=== PATIENT | female | born 1935 | race Caucasian/White ===

== ENCOUNTER → 2019-09-26 14:42 | Outpatient (BNVA) | payer MEDICARE, SELFPAY | PROVIDERS: Family Provider Nurse Practitioner Family; PCP Nurse Practitioner Family; Visit Provider Registered Nurse | DX: R10.2 Pelvic and perineal pain (principal); R39.9 Unspecified symptoms and signs involving the genitourinary system | CPT/HCPCS: 81003 ==

== ENCOUNTER → 2019-10-11 14:07 | Outpatient (BNVA) | payer MEDICARE, SELFPAY | PROVIDERS: Family Provider Nurse Practitioner Family; PCP Nurse Practitioner Family; Visit Provider Nurse Practitioner Family | DX: R60.9 Edema, unspecified (principal); E78.5 Hyperlipidemia, unspecified; I11.0 Hypertensive heart disease with heart failure | CPT/HCPCS: 80048; 83880 ==

== ENCOUNTER 2019-11-29 10:41 | Inpatient (IN) | payer MEDICARE, SELFPAY ==
[2019-11-29] VITALS (9 sets, daily range): BP systolic 130–193; BP diastolic 46–90; PULSE 66–82; RESP 16–20; TEMP 36.5–37.1; O2SAT 88–96; BMI 30.1
--- NOTE | 2019-11-29 10:45 | W.ED.BACK ---
HPI - Back Pain/Injury General: Chief Complaint: Back Pain/Injury Stated Complaint: back pain Source: patient Mode of arrival: EMS Limitations: no limitations History of Present Illness: HPI Narrative: Patient is an 83-year-old female who presents to the ED with multiple medical complaints. Patient tells me she lives alone and over the past week has had an extremely difficult time taking care of herself. She states she has suffered from back pain since August and the pain continues to increase making ambulation difficult. She did have evaluation for this through her PCP office including lumbar x-rays that showed severe degenerative changes and disc narrowing. Patient states she is also having trouble ambulating due to bilateral lower extremity swelling. Again she has had this for a few months but feels it is worsening. She does have a history of CHF and at one point was on Lasix however was taken off of this due to unwanted side effects. She was supposed to have a cardiology appointment with Dr. Bruno on November 20 however she canceled this due to the virus . On file patient does have a previous echo performed on 07/2019 which showed a left EF of 60% with diastolic dysfunction. Patient reports a history of COPD. She reports over the last week she has had worsening shortness of breath. She normally does not require oxygen however upon arrival was 88-89% and thus was placed on 2L O2. Associated symptoms: Deny abdominal pain, chills, dysuria, fever(s), nausea, syncope, urinary urgency or vomiting Review of Systems General: Reports: 10 or more systems reviewed and unremarkable except in HPI and below Const: Denies: fever, chills, body aches, change in appetite or change in weight Eyes: Denies: change in vision, blurry vision or photophobia ENMT: Denies: throat pain, enlarged tonsils or painful swallowing Card: Reports: edema (bilateral LE), swelling of feet/ankles and shortness of breath on exertion; Denies: chest pain, palpitations, irregular heart rhythm, lightheadedness, syncope, pre-syncope, shortness of breath when lying down, leg pain with exertion or bluish discoloration of hands/feet Resp: Reports: shortness of breath; Denies: productive cough, non-productive cough, pain on inspiration, change in phlegm color, coughing up blood or chest congestion GI: Denies: abdominal pain, nausea, vomiting or diarrhea : Denies: flank pain, difficulty urinating, painful urination, urinary frequency or urinary urgency Musc: Reports: back pain, extremity pain (bilateral LEs), extremity swelling and joint pain (reports bilateral hip pain); Denies: neck pain Skin/Breast: Denies: rash Neuro: Denies: headache, numbness in extremities, weakness in extremities or changes in sensation PFSH ED PFSH: Social History Smoking and tobacco status: current every day smoker Physical Exam Const: COMMON NORMALS: no apparent distress, average body habitus, oriented x3, no limitations, healthy appearing, alert and well nourished HENMT: COMMON NORMALS: normocephalic and head/scalp atraumatic HEAD & SCALP: normocephalic and atraumatic Resp: COMMON NORMALS: normal respiratory effort and clear to auscultation bilaterally AUSCULTATION: clear to auscultation bilaterally OTHER: pt sats at 88-89% on RA; she was placed on 2L O2 Cardio: COMMON NORMALS: regular rate and regular rhythm RATE: regular rate RHYTHM: regular rhythm GI: COMMON NORMALS: normal to inspection, nondistended, normoactive bowel sounds, soft to palpation, non-tender, no hepatosplenomegaly and no masses PALPATION: Yes soft and Yes no hepatosplenomegaly : COMMON NORMALS: Yes no CVA tenderness BLADDER/KIDNEY EXAM: Yes no CVA tenderness Back/Pelvis: COMMON NORMALS: no CVA tenderness THORACIC SPINE/UPPER BACK: Yes thoracic ROM normal, No thoracic spinal tenderness and No paraspinal muscle spasm LUMBAR SPINE/LOWER BACK: Yes paraspinal muscle tenderness (TTP throughout lower back) and Yes straight leg raise negative bilaterally Extremity: OTHER: bilateral LE pitting edema Neuro: COMMON NORMALS: oriented x3 SENSORIUM/ORIENTATION: Yes alert Skin: COMMON NORMALS: no rashes or lesions noted GENERAL SKIN EXAM: no rashes or lesions noted Course Vital Signs: Vital signs: Vital Signs Temperature 98 F 11/29/19 10:46 Pulse Rate 66 11/29/19 10:46 Respiratory Rate 16 11/29/19 10:46 Blood Pressure 172/58 11/29/19 10:46 Pulse Oximetry 96 11/29/19 10:46 MDM - Back Pain/Injury MDM Narrative: Medical decision making narrative: Patient reports difficulty caring for herself at home. She lives alone. BNP today is elevated compared to the last previous performed last month. She does have pulmonary congestion on her CXR. She is hyponatremic at 125. She is requiring oxygen. Patient most likely will need to be admitted to the hospital for further evaluation. Spoke to Dr. Pryor who agrees and will speak to the hospitalist. Lab Data: Labs: Lab Results 11/29/19 11/29/19 11/29/19 Range/Units 11:14 11:14 11:14 WBC 9.1 (4.0-10.0) 10^3/ uL RBC 4.70 (4.1-5.3) 10^6/u L Hgb 15.3 (11.5-15.3) g/dL Hct 44.7 (37.0-47.0) % MCV 95.1 (81-99) fL MCH 32.6 (28.0-34.0) pg MCHC 34.2 (30.0-36.0) g/dL RDW 12.7 (12.1-15.1) % Plt Count 283 (130-400) 10^3/c mm MPV 9.2 (7.4-10.4) fL Neut % (Auto) 82.9 % Lymph % (Auto) 7.5 % Lancaster % (Auto) 8.6 % Eos % (Auto) 0.1 % Baso % (Auto) 0.2 % Neut # (Auto) 7.5 (1.8-7.7) 10^3/u L Lymph # (Auto) 0.7 L (0.8-4.8) 10^3/u L Lancaster # (Auto) 0.8 (0.2-0.9) 10^3/u L Eos # (Auto) 0.0 (0.0-0.8) 10^3/u L Baso # (Auto) 0.0 (0.0-0.1) 10^3/u L Nucleated RBC % (a uto) 0 % Nucleated RBCs # 0.0 /100WBC Sodium 125 L (136-145) mmol/L Potassium 4.5 (3.5-5.1) mmol/L Chloride 86 L (98-107) mmol/L Carbon Dioxide 28 (22-29) mmol/L Anion Gap 15.5 (5-19) BUN 10 (8-23) mg/dL Creatinine 0.4 L (0.5-0.9) mg/dL Glucose 128 H (65-115) mg/dL Calculated Osmolal ity 258 L (285-295) mOsm/k g Calcium 9.2 (8.5-10.5) mg/dL Total Bilirubin 0.6 (0.15-1.2) mg/dL AST 24 (0-32) U/L ALT 16 (0-33) U/L Alkaline Phosphata se 205 H (35-105) IU/L Troponin T Baselin e 23 H (0-10) ng/mL NT-Pro-B Natriuret Pep 1671 H (0-450) pg/mL Total Protein 6.5 L (6.6-8.7) g/dL Albumin 3.7 (3.5-5.2) g/dL Globulin 2.8 (1.3-4.6) g/dL Urine Color (Yellow) Urine Appearance (CLEAR) Urine pH (5-7) Ur Specific Gravit y (1.005-1.030) Urine Protein (Negative) Urine Glucose (UA) (Normal) Urine Ketones (Negative) Urine Blood (Negative) Urine Nitrate (Negative) Urine Bilirubin (NEGATIVE) Urine Urobilinogen (Negative) mg/dL Ur Leukocyte Maye ase (Negative) 11/29/19 Range/Units 11:36 WBC (4.0-10.0) 10^3/ uL RBC (4.1-5.3) 10^6/u L Hgb (11.5-15.3) g/dL Hct (37.0-47.0) % MCV (81-99) fL MCH (28.0-34.0) pg MCHC (30.0-36.0) g/dL RDW (12.1-15.1) % Plt Count (130-400) 10^3/c mm MPV (7.4-10.4) fL Neut % (Auto) % Lymph % (Auto) % Lancaster % (Auto) % Eos % (Auto) % Baso % (Auto) % Neut # (Auto) (1.8-7.7) 10^3/u L Lymph # (Auto) (0.8-4.8) 10^3/u L Lancaster # (Auto) (0.2-0.9) 10^3/u L Eos # (Auto) (0.0-0.8) 10^3/u L Baso # (Auto) (0.0-0.1) 10^3/u L Nucleated RBC % (a uto) % Nucleated RBCs # /100WBC Sodium (136-145) mmol/L Potassium (3.5-5.1) mmol/L Chloride (98-107) mmol/L Carbon Dioxide (22-29) mmol/L Anion Gap (5-19) BUN (8-23) mg/dL Creatinine (0.5-0.9) mg/dL Glucose (65-115) mg/dL Calculated Osmolal ity (285-295) mOsm/k g Calcium (8.5-10.5) mg/dL Total Bilirubin (0.15-1.2) mg/dL AST (0-32) U/L ALT (0-33) U/L Alkaline Phosphata se (35-105) IU/L Troponin T Baselin e (0-10) ng/mL NT-Pro-B Natriuret Pep (0-450) pg/mL Total Protein (6.6-8.7) g/dL Albumin (3.5-5.2) g/dL Globulin (1.3-4.6) g/dL Urine Color Yellow (Yellow) Urine Appearance Clear (CLEAR) Urine pH 7 (5-7) Ur Specific Gravit y 1.010 (1.005-1.030) Urine Protein Neg (Negative) Urine Glucose (UA) Norm (Normal) Urine Ketones Negative (Negative) Urine Blood Neg (Negative) Urine Nitrate Negative (Negative) Urine Bilirubin Neg (NEGATIVE) Urine Urobilinogen 1 H (Negative) mg/dL Ur Leukocyte Maye ase Negative (Negative) Discharge Plan Discharge Patient Disposition: Admitted As Inpatient Admit Provider: Alia Ratliff Clinical Impression: CHF (congestive heart failure), Acute hyponatremia, Acute exacerbation of chronic obstructive pulmonary disease Condition: Stable Coding Level of Care Code ED Chrome Tanning Drum Operator for Chg Fwd Exam Comprehensive
--- NOTE | 2019-11-29 11:07 | ECG_ITS ---
Measurements Intervals [place] Rate: 64 P: 61 KS: 147 QRS: -38 QRSD: 110 T: 56 QT: 434 QTc: 448 SINUS RHYTHM WITH OCCASIONAL SUPRAVENTRICULAR PREMATURE COMPLEXES POSSIBLE LEFT ATRIAL ENLARGEMENT [-0.1mV P WAVE IN V1/V2] LEFT AXIS DEVIATION [QRS AXIS < -30] INTERPRETATION BASED ON A DEFAULT AGE OF 40 YEARS No previous ECG available for comparison Electronically Signed On 11-29-2019 19:24:41 CDT by Reagan Bruno M.D. [email or web address] f
--- NOTE | 2019-11-29 11:07 | XR_ITS ---
WS: [id number] PORTABLE CHEST HISTORY: cough/congestion COMPARISON: None available. Hyperexpanded lungs with diffuse pulmonary venous congestion. Small LEFT pleural effusion is suspecte d. Cardiac size: Moderately enlarged cardiac silhouette. Mediastinum/Aorta: Moderate calcification thoracic aorta. No osseous abnormality seen. XR/XR chest 1V portable [id number] IMPRESSION: 1. Moderate pulmonary venous congestion and chronic emphysema. 2. Moderate cardiomegaly and partially calcified aorta.
[2019-11-29 11:19] LABS: Basophils % 0.2 %; Eosinophils % 0.1 %; Hematocrit 44.7 % (37.0-47.0); Hemoglobin 15.3 g/dL (11.5-15.3); Lymphocytes # 0.7 10^3/uL (0.8-4.8); Lymphocytes % 7.5 %; Mean Corpuscular HGB Conc 34.2 g/dL (30.0-36.0); Mean Corpuscular Hemoglobin 32.6 pg (28.0-34.0); Mean Corpuscular Volume 95.1 fL (81-99); Mean Platelet Volume 9.2 fL (7.4-10.4); Monocytes # 0.8 10^3/uL (0.2-0.9); Monocytes % 8.6 %; Neutrophils # 7.5 10^3/uL (1.8-7.7); Neutrophils % 82.9 %; Nucleated Red Blood Cells % 0 %; Platelet Count 283 10^3/cmm (130-400); Red Cell Distribution Width 12.7 % (12.1-15.1); White Blood Count 9.1 10^3/uL (4.0-10.0)
--- NOTE | 2019-11-29 11:20 | PC.NURSE ---
x ray to room
[2019-11-29 11:35] LABS: Troponin(5th) Baseline 23 ng/mL (0-10)
[2019-11-29 11:43] LABS: Alanine Aminotransferase 16 U/L (0-33); Albumin Level 3.7 g/dL (3.5-5.2); Alkaline Phosphatase 205 IU/L (35-105); Anion Gap 15.5 (5-19); Aspartate Amino Transferase 24 U/L (0-32); Blood Urea Nitrogen 10 mg/dL (8-23); Calcium 9.2 mg/dL (8.5-10.5); Carbon Dioxide 28 mmol/L (22-29); Chloride 86 mmol/L (98-107); Creatinine Clr Calc Pharmacy 54.2285; Globulin 2.8 g/dL (1.3-4.6); Glucose 128 mg/dL (65-115); NT Pro B Type Natriuretic Pept 1671 pg/mL (0-450); Osmolality Calculated 258 mOsm/kg (285-295); Potassium 4.5 mmol/L (3.5-5.1); Sodium 125 mmol/L (136-145); Total Bilirubin 0.6 mg/dL (0.15-1.2); Total Protein 6.5 g/dL (6.6-8.7)
[2019-11-29 11:57] LABS: Add Urine Microscopic? NO
[2019-11-29 12:01] LABS: Bilirubin Urine Neg (NEGATIVE); Blood Urine Neg (Negative); Glucose Urine UA Norm (Normal); Ketones Urine Negative (Negative); Leukocyte Esterase Urine Negative (Negative); Nitrate Urine Negative (Negative); Protein Urine Neg (Negative); Urine Appearance Clear (CLEAR); Urine Color Yellow (Yellow); Urobilinogen Urine 1 mg/dL (Negative); pH Urine 7 (5-7)
--- NOTE | 2019-11-29 13:07 | ECG_ITS ---
Measurements Intervals [place] Rate: 59 P: 85 TN: 161 QRS: -7 QRSD: 106 T: 52 QT: 449 QTc: 448 SINUS BRADYCARDIA POSSIBLE RIGHT ATRIAL ENLARGEMENT [0.25mV P WAVE] INTERPRETATION BASED ON A DEFAULT AGE OF 40 YEARS No previous ECG available for comparison Electronically Signed On 11-29-2019 19:24:52 CDT by Reagan Bruno M.D. [id number] f
--- NOTE | 2019-11-29 13:11 | PC.NURSE ---
ekg performed and shown to ed physician.
--- NOTE | 2019-11-29 13:25 | CT_ITS ---
WS: [id number] CT LUMBAR SPINE, noncontrast. HISTORY: back pain TECHNIQUE: Contiguous 2.5 mm axial imaging are performed. Sagittal and coronal reformats are submitte d and reviewed. All CT scans at [facility] use at least one of these dose optimization te chniques: automated exposure control; mA and/or kV adjustment per patient size (includes targeted exa ms where dose is matched to clinical indication); or iterative reconstruction. IV contrast: None DLP: 2227.04 mGy.cm COMPARISON: None available. L4 anterolisthesis by 5.5 mm. Severe degenerative disc disease with endplate sclerosis and vacuum dis c phenomenon throughout the lumbar spine. No fractures. Pedicles are all identified. Lobulated low-attenuation mass in the LEFT adrenal gland measures 2.5 x 1.2 cm with decreased Hounsfi eld units. L1-2: Diffuse osteophytic ridging and asymmetric disc bulging. L2-3: Diffuse osteophytic ridging with moderate disc bulging. Mild stenosis involving the central can al and inferior lateral recesses. L3-4: Diffuse asymmetric disc bulging and osteophytosis. Focal disc protrusion extends into the RIGHT foramen with narrowing of the RIGHT subarticular recess. There is moderate central and subarticular recess stenosis and mild bilateral foraminal stenosis. L4-5: Severe diffuse asymmetric disc bulging with facet disease and ligamentum flavum hypertrophy. Se sunny central, bilateral subarticular recess and LEFT foraminal stenosis. Mild RIGHT foraminal stenosi s. L5-S1: Diffuse disc bulging and osteophytosis. Moderate RIGHT and mild LEFT foraminal stenosis. Extensive calcification and tortuosity involving the aorta. Mild aneurysmal dilatation measuring up t o 3.0 cm. Mild bilateral SI joint sclerosis. There is a sclerosis through the pelvis but there is also bilatera l sacral fracture which is probably an insufficiency fracture. CT/CT lumbar spine wo con* [id number] IMPRESSION: 1. Acute sacral insufficiency fracture. 2. Extensive degenerative disc disease and facet joint arthropathy throughout the lumbar spine. 3. Severe central, bilateral subarticular recess and LEFT foraminal stenosis a t L4-5. 4. Moderate central and bilateral subarticular recess stenosis at L3-4. 5. Moderate RIGHT foraminal stenosis at L5-S1. 6. No acute lumbar spine fracture. 7. Tortuous ectatic abdominal aorta. Mild aneurysmal dilatation. 8. LEFT adrenal adenoma.
--- NOTE | 2019-11-29 13:25 | CT_ITS ---
WS: [id number] CT CHEST WITHOUT INTRAVENOUS CONTRAST HISTORY: Pneumonia. TECHNIQUE: Contiguous 5 mm axial imaging performed on the thorax. Coronal and sagittal reformats are submitted. All CT scans at [facility] use at least one of these dose optimization techniq ues: automated exposure control; mA and/or kV adjustment per patient size (includes targeted exams wh ere dose is matched to clinical indication); or iterative reconstruction. CONTRAST: None DLP: 510.29 mGy.cm COMPARISON: Chest radiograph 11/29/2019. Lungs and central airway: Hyperexpanded lungs with emphysema. LEFT upper lobe nodules and irregular o pacifications. There is a subpleural opacification near the superior major fissure measuring 11 x 12 x 14 mm. Smaller pleural-based nodule measures 8 mm and there is an irregular opacification more supe riorly. Slightly spiculated opacification at the LEFT lung base measures 23 x 17 mm. Pleura: Normal. No pleural effusion. Heart and pericardium: Mildly enlarged heart. Mitral annular calcification versus valve replacement. No pericardial fluid. Moderate atherosclerosis coronary arteries. Mediastinum and gokul: On this unenhanced examination adenopathy is not evident. Vessels: Extensive atherosclerosis in the aorta and proximal great vessels. Enlarged pulmonary arteri es. Chest wall and lower neck: Mild anasarca throughout the soft tissues of the chest. Well-rounded solid mass in the inferior lateral RIGHT breast measures 2.0 x 2.2 cm. No suspicious axillary lymph nodes. Upper abdomen: Small hiatal hernia. Heavy calcification continues into the upper abdominal aorta. Linda y mild fullness in the renal pelves. Mild fullness of the LEFT adrenal gland. LEFT adrenal gland is p oorly visualized. Osseous structures: Increase in thoracic kyphosis. No osteoblastic or osteolytic bone disease. Sclero tic changes within some of the endplates of the vertebral bodies appear to be chronic. No sternal abn ormality. CT/CT chest wo con [id number] IMPRESSION: 1. Chronic emphysema. 2. LEFT upper and LEFT lower lobe pulmonary nodules and irregular opacificatio ns. Metastatic disease is not excluded. 3. Inferolateral solid mass RIGHT breast measures 2.0 x 2.2 cm. Consider follo w-up by mammogram and/or ultrasound. 4. No adenopathy on this unenhanced study. 5. Mild anasarca.
--- NOTE | 2019-11-29 13:26 | P.HP_ITS ---
Providers/Chief Complaint Admitting Physician: Alia Ratliff MD Primary Care Provider: Tl Valenzuela Chief Complaint: HYPONATREMIA History of Present Illness Sneha Sanchez is a 83 year old female with past medical history of hypertension, hyperlipidemia, diastolic heart failure, degenerative disc disorder, COPD not on baseline oxygen presents to the ER today with complaint of weakness which is been getting worse for last 1 week and today morning she was not able to get out of bed. Patient states she started having extreme acute pain in her back in August which was not preceded by any kind of fall, injury, motor vehicle accident. For the back pain she is been following up with her primary care physician and x-ray was done which showed extensive degenerative disorder. Since the back pain patient is also been having swelling in her legs which has been increasing gradually. Patient denies of having any pain, tenderness, blisters in her leg. Patient denies of having any chest pain, nausea, vomiting, palpitations, dizziness. Patient has a history of COPD so has some shortness of breath at baseline and it has not increased more than that. She denies of having any difficulty in breathing when lying down or exertion. Patient states usually since August her mobility has been worsening and previously she used to use 1 cane to walk which is gradually come down to her using/needing a walker now. She denies of having any bladder accidents but does state that she has had urinary hesitancy. Patient last had bowel movements 3 days ago. She has suffered on and off with constipation in the past. She denies of having any recent sick contacts, flulike symptoms, travels. She complains of having cough with expectoration which has been at its baseline. Patient has the results of x-ray of her lumbar spine and echocardiogram. Echocardiogram concerning for a EF of 60 to 65% with grade 2 diastolic dysfunction with RVSP of 50 mmHg. Review of Systems Const: Denies: fever, chills, body aches, change in appetite, malaise, night sweats, diaphoresis, change in sleep pattern, daytime sleepiness or snoring Eyes: Denies: change in vision, blurry vision, photophobia, eye discomfort or eye discharge ENMT: Denies: throat pain, enlarged tonsils, hoarseness, mouth pain, oral sores/lesions, dry mouth, tinnitus, nasal congestion or post nasal drip Card: Denies: chest pain, palpitations, irregular heart rhythm, edema, swelling of feet/ankles, lightheadedness, syncope, pre-syncope, shortness of breath on exertion, shortness of breath when lying down, leg pain with exertion or bluish discoloration of hands/feet Resp: Denies: shortness of breath, productive cough, non-productive cough, wheezing, stridor, pain on inspiration, change in phlegm color, coughing up blood or chest congestion GI: Denies: abdominal pain, nausea, vomiting, vomiting blood, coffee grounds in vomit, difficulty swallowing, heartburn/indigestion, diarrhea, constipation, bloating, cramping, change in bowel habits, painful bowel movements, blood in stool or black tarry stool : Denies: flank pain, painful urination, urinary frequency, urinary urgency, urinary hesitancy, nighttime urination or blood in urine Musc: Denies: neck pain, back pain, extremity pain, joint pain, joint swelling, redness, joint stiffness or limited range of motion Neuro: Denies: headache, numbness in extremities, weakness in extremities, changes in sensation, lack of coordination, difficulty walking, frequent falls, dizziness, vertigo, confusion, slurred speech, difficulty communicating thoughts or seizure-like activity Psych: Denies: anxiety, depression, mood swings, panic attacks, hopelessness or irritability Endo: Denies: excessive urination, excessive thirst, tired all the time, cold intolerance, excessive sweating, flushing or heat intolerance Andrew/Lymph: Denies: easy bruising or easy bleeding All/Imm: Denies: tongue swelling, facial swelling or acute wheezing Medications/Allergies Home Medications Medication Instructions Recorded Confirmed Last Taken Type Biofreeze Roll-On 1 applic TOPICAL BID PRN 11/29/19 11/29/19 Unknown History acetaminophen [Tylenol Arthritis 1,300 mg PO TID 11/29/19 11/29/19 11/29/19 History Pain] Allergies Allergy/AdvReac Type Severity Reaction Status Date / Time Penicillins Allergy Mild unknown Verified 10/28/19 11:25 clotrimazole Allergy Unknown unknown Verified 10/28/19 11:25 PFSH Acute PFSH: Medical History (Updated 11/29/19 @ 13:46 by Imtiaz Weaver MD) CHF (congestive heart failure) COPD (chronic obstructive pulmonary disease) DDD (degenerative disc disease) Essential hypertension Hyperlipidemia Surgical History (Updated 11/29/19 @ 13:27 by Imtiaz Weaver MD) History of section, classical Hx of adenoidectomy Hx of tonsillectomy Social History Smoking and tobacco status: current every day smoker Vitals/I&O/Wt Last Vital Signs Temp 98 F 11/29/19 10:46 Pulse 66 11/29/19 10:46 Resp 16 11/29/19 10:46 BP 172/58 11/29/19 10:46 Pulse Ox 96 11/29/19 10:46 Weight last 48 hrs Weight 77.111 kg Physical Exam Narrative: EXAM NARRATIVE: General: No acute distress, AO x3 HEENT: PERRLA, pupils bilaterally equal and reactive Chest: Normal vesicular breath sounds, bilateral fine crackles up to the middle zone, occasional wheezing bilaterally, equal good air entry bilaterally CVS: S1-S2 regular, no murmurs, no tachycardia, no gallops, no rubs Abdomen: Soft, nontender, no organomegaly, bowel sounds present Neuro: No focal deficits, no facial deformity, AO x3, power 5/5 in all limbs No concerns for foot drop. Data : 11/29/19 11:14 11/29/19 11:14 A&P Assessment and plan (1) Weakness: Status: Acute (2) Acute hyponatremia: Status: Acute (3) Back pain: Status: Acute (4) CHF (congestive heart failure): Status: Chronic (5) COPD (chronic obstructive pulmonary disease): Status: Acute (6) Essential hypertension: Status: Chronic Additional A&P Information Acute hyponatremia: Most likely cause of her weakness. Patient does not complain of having any fever, no leukocytosis, vitals stable. Sodium today 125, baseline seems to be around 130. On examination it looks like hypervolemic hyponatremia. Check urine lites, urine osmolality. Calculated plasma osmolality of 258. Check TSH, lipid panel, HbA1c. Check BMP daily. Diastolic heart failure: BNP 1671. We will stop oral Lasix and give patient IV Lasix 20 mg daily. Strict input output charting, daily weights. Lower limb swelling: Lower limb Dopplers to rule out DVT. Hypertension: Continue home dose of Cardizem for now. Continue to monitor blood pressures. If needed can start patient on lisinopril keeping her systolic blood pressures around 140 mmHg. Back pain: Most likely because of her acute symptoms at present of unable to walk. Check CT lumbar spine. Symptoms and examination not concerning for cauda equina. Physical therapy evaluation and treat. COPD: Oxygen supplementation keeping saturation over 90%. DuoNebs every 6 hours, budesonide twice daily, albuterol as needed. Continue chronic home medications like multivitamins, baby aspirin. Cardiac diet. CODE STATUS: Full code. Lovenox for DVT prophylaxis Dispo: Patient states she is unable to take care of herself at present. She states she lives by herself and would not want to be placed in fpc for now and the time she regains her strength. Physical therapy evaluation. Social consult for safe discharge planning. Attestations Medical Necessity Statement*: Would most likely need admission for more than 2 midnights for hyponatremia Time Spent in Patient Care: Greater than 35 minutes Coding Level of Care Code Acute Film Library Clerk for Tash Hanson Diagnoses Weakness R53.1 Acute hyponatremia E87.1 Back pain M54.9 CHF (congestive heart failure) I50.9 COPD (chronic obstructive pulmonary disease) J44.9 Essential hypertension I10
[2019-11-29 13:41] LABS: Troponin 5 2HR 24.38 ng/mL (0-10); Troponin 5 2HR Delta 1.38 ABS# (0-10)
[2019-11-29] MEDS: FUROsemide 10 mg/mL SDV 2mL 20 MG IVP (13:49)
[2019-11-29 13:59] LABS: Procalcitonin 0.03 ng/mL (0-0.5)
--- NOTE | 2019-11-29 14:25 | USCV_ITS ---
Sneha Sanchez Age: 83 Gender: F : 1935 Exam Date: 11/29/2019 15:13 Ordering Phys: Imtiaz Weaver MD Technologist: Jose Galvez Exam Location: [facility] Indication: BILAT EDEMA SOB HISTORY: Lower extremity edema. PROCEDURES: Venous duplex imaging was performed in bilateral lower extremities. The venous duplex Doppler examination of both lower extremities was performed in the standard fashion. Bilaterally, the common femoral, superficial femoral, profunda femoral, popliteal, posterior tibial, greater saphenous veins, and the peroneal trunk were identified and interrogated in the standard fashion. FINDINGS: Normal 2-D Doppler and augmentation and compressibility throughout the lower extremity venous structures. Additional imaging through the proximal calf veins also reveals no thrombus. Limited evaluation of the greater saphenous vein is patent with no thrombus. CONCLUSIONS No DVT bilateral lower extremities. Dr. Veronica Cooper DO (Electronically Signed) Final Date: 30 November 2019 08:38 S
[2019-11-29 14:28] LABS: Influenza A by IFA Negative (Negative); Influenza B by IFA Negative (Negative)
[2019-11-29 14:55] LABS: Thyroid Stimulating Hormone 1.45 uIU/mL (0.27-4.20)
[2019-11-29 15:05] LABS: Estmated Average Glucose 126
[2019-11-29] MEDS: ipratropium-albuterol 3 mL Neb INHALATION ×2 (15:49→20:13)
[2019-11-29 15:57] LABS: Potassium, Radom Urine 38 mmol/L; Urine Random Chloride 95 mmol/L; Urine Random Sodium 85 mmol/L
--- NOTE | 2019-11-29 17:07 | ECG_ITS ---
Measurements Intervals Widen Rate: 90 P: 87 FL: 196 QRS: -38 QRSD: 117 T: 84 QT: 394 QTc: 484 SINUS RHYTHM WITH FREQUENT SUPRAVENTRICULAR PREMATURE COMPLEXES MARKED LEFT AXIS DEVIATION [QRS AXIS < -30] MODERATE INTRAVENTRICULAR CONDUCTION DELAY [110+ ms QRS DURATION] NONSPECIFIC T-WAVE ABNORMALITY No previous ECG available for comparison Electronically Signed On 11-29-2019 19:24:56 CDT by Reagan Bruno M.D. [email or web address]
[2019-11-29] MEDS: enoxaparin 40 mg/0.4 mL Syringe SUBCUT (17:49)
[2019-11-29] MEDS: famotidine 20 mg/2 mL INJ IVP (17:50)
[2019-11-29] MEDS: dilTIAZem 60 mg Tablet 90 MG PO (17:53)
[2019-11-29] MEDS: TRAMadol 50 mg Tablet PO (17:54)
[2019-11-29 18:09] LABS: Troponin 5 6HR 25.19 ng/mL (0-10); Troponin 5 6HR Delta 2.19 ng/L (0-12)
[2019-11-29 19:03] LABS: Calcium 9.1 mg/dL (8.5-10.5); Parathyroid Hormone 39.5 pg/mL (15-65)
[2019-11-29 19:44] LABS: 25 Hydroxy Vitamin D 48 ng/mL (30-100)
[2019-11-29] MEDS: budesonide 0.5 mg/2 mL Neb INHALATION (20:13)
[2019-11-30] VITALS (9 sets, daily range): BP systolic 110–154; BP diastolic 47–60; PULSE 52–71; RESP 18–22; TEMP 36.5–36.7; O2SAT 88–95
[2019-11-30] MEDS: TRAMadol 50 mg Tablet PO (00:43)
[2019-11-30 05:29] LABS: Basophils % 0.4 %; Eosinophils # 0.1 10^3/uL (0.0-0.8); Eosinophils % 0.6 %; Hematocrit 41.5 % (37.0-47.0); Hemoglobin 13.7 g/dL (11.5-15.3); Lymphocytes # 1.1 10^3/uL (0.8-4.8); Lymphocytes % 13.5 %; Mean Corpuscular Hemoglobin 31.7 pg (28.0-34.0); Mean Corpuscular Volume 96.1 fL (81-99); Mean Platelet Volume 9.6 fL (7.4-10.4); Monocytes % 12.3 %; Neutrophils % 72.6 %; Nucleated Red Blood Cells % 0 %; Platelet Count 274 10^3/cmm (130-400); Red Blood Count 4.32 10^6/uL (4.1-5.3); Red Cell Distribution Width 12.8 % (12.1-15.1); White Blood Count 8.3 10^3/uL (4.0-10.0)
[2019-11-30 05:45] LABS: Alanine Aminotransferase 13 U/L (0-33); Albumin Level 3.1 g/dL (3.5-5.2); Alkaline Phosphatase 174 IU/L (35-105); Anion Gap 10.4 (5-19); Aspartate Amino Transferase 20 U/L (0-32); Blood Urea Nitrogen 11 mg/dL (8-23); Calcium 8.8 mg/dL (8.5-10.5); Carbon Dioxide 32 mmol/L (22-29); Chloride 89 mmol/L (98-107); Creatinine Clr Calc Pharmacy 54.2285; Globulin 2.6 g/dL (1.3-4.6); Glucose 101 mg/dL (65-115); Osmolality Calculated 260 mOsm/kg (285-295); Potassium 4.4 mmol/L (3.5-5.1); Sodium 127 mmol/L (136-145); Total Bilirubin 0.4 mg/dL (0.15-1.2); Total Protein 5.7 g/dL (6.6-8.7)
[2019-11-30 05:46] LABS: Chol HDL Ratio 1.95 mg/dL (0.0-4.40); Cholesterol 129 mg/dL (0-200); HDL Cholesterol 66 mg/dL (60-100); LDL Cholesterol Calculated 55 mg/dL (50-129); Triglycerides 42 mg/dL (0-150); VLDL Cholestrol Calculation 8 mg/dL (0-30)
[2019-11-30] MEDS: aspirin 81 mg EC Tablet PO (08:21)
[2019-11-30] MEDS: dilTIAZem 60 mg Tablet 90 MG PO ×2 (08:21→18:14)
[2019-11-30] MEDS: ipratropium-albuterol 3 mL Neb INHALATION ×2 (08:23→20:56)
[2019-11-30] MEDS: budesonide 0.5 mg/2 mL Neb INHALATION ×2 (08:23→20:56)
--- NOTE | 2019-11-30 08:33 | PM.PN ---
Subjective Subjective: Interval history: No acute events overnight. Patient states her back pain is stable. He she denies of having nausea, vomiting, headache, palpitations, headache. This morning when she woke up she was having some shortness of breath. She refused her nebulization overnight as she did not want to be woken up from her sleep. Lab work noted. Vitals/I&O/Wt Last Vital Signs Temp 97.8 F 11/30/19 07:31 Pulse 61 11/30/19 08:22 Resp 20 H 11/30/19 08:22 BP 154/60 11/30/19 07:31 Pulse Ox 88 L 11/30/19 08:22 11/29/19 11/30/19 11/30/19 22:59 06:59 14:59 Intake Total 680 / 680 100 / 780 Balance 680 / 680 100 / 780 Weight last 48 hrs Weight 77.111 kg Physical Exam Narrative: EXAM NARRATIVE: General: No acute distress, AO x3 HEENT: PERRLA, pupils bilaterally equal and reactive Chest: Normal vesicular breath sounds, bilateral fine crackles up to the middle zone, occasional wheezing bilaterally, equal good air entry bilaterally CVS: S1-S2 regular, no murmurs, no tachycardia, no gallops, no rubs Abdomen: Soft, nontender, no organomegaly, bowel sounds present Neuro: No focal deficits, no facial deformity, AO x3, power 5/5 in all limbs No concerns for foot drop. Data : 11/30/19 04:46 11/30/19 04:46 Micro: Microbiology 11/29/19 11:36 Legionella Urinary Antigen - Final Urine,Clean Catch A&P Assessment and plan (1) Weakness: Status: Acute (2) Acute hyponatremia: Status: Acute (3) Back pain: Status: Acute (4) CHF (congestive heart failure): Status: Chronic (5) COPD (chronic obstructive pulmonary disease): Status: Acute (6) Essential hypertension: Status: Chronic Additional A&P Information Acute hyponatremia: Most likely cause of her weakness. On examination it looks like hypervolemic hyponatremia. Patient does not complain of having any fever, no leukocytosis, vitals stable. Sodium improving. 127 today. Baseline seems to be around 130. Urine studies appreciated. Calculated plasma osmolality of 258. TSH, lipid panel, A1c all within normal limits. Check BMP daily. Diastolic heart failure: BNP 1671. Continue with IV Lasix 20 mg daily. Strict input output charting, daily weights. Lower limb swelling: Dopplers negative for DVT. Hypertension: Continue home dose of Cardizem for now. Blood pressure well controlled since today morning. If needed can start patient on lisinopril keeping her systolic blood pressures around 140 mmHg. Back pain: Most likely because of her acute symptoms at present of unable to walk. CT lumbar appreciated. Case discussed with Dr. Lopes from neurosurgery. He suggested get an MRI of lumbar spine for better assessment of nerve impingement if any. Symptoms and examination not concerning for cauda equina. Physical therapy evaluation and treat. Tramadol 50 mg every 6 hourly as needed. Vitamin D levels, PTH levels within normal limits. COPD: Oxygen supplementation keeping saturation over 90%. DuoNebs every 6 hours, budesonide twice daily, albuterol as needed. Continue chronic home medications like multivitamins, baby aspirin. Cardiac diet. CODE STATUS: Full code. Lovenox for DVT prophylaxis Dispo: Patient states she is unable to take care of herself at present. She states she lives by herself and would not want to be placed in assisted for now and the time she regains her strength. Physical therapy evaluation. Social consult for safe discharge planning. Attestations Medical Necessity Statement*: Acute hyponatremia, severe back degenerative disorder on reevaluation. 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
--- NOTE | 2019-11-30 09:26 | PC.CHAP ---
Pastoral Care Encounter/Spiritual Assessment Type of Contact [] Declined print buyer visit [] Patient/Family/Request visit [] Outpatient visit [] Follow-up visit [] Physician referral [] Code/Alert [x] Routine visit [] Staff referral [] Actively dying [] Patient sleeping [] Family support [] [] Out of room [] Palliative care [] [] Receiving care in room [] Pre-surgical visit [] Trauma [] Long length of stay [] ICU visit [] Other: Relational/Emotional Strength [x] Patient feels connected with others/family/visitors/staff [] Distress [] Loneliness/isolation [] Abandonment Spirituality of Patient [x] Person of Joelle [x] Attends Yazidi of their Joelle [x] Believes in Prayer [] Reads Bible or Christianity materials [] There are Spiritual issues to be addressed 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 [] Prayer [] Active listening [] Non-anxious presence [] Spiritual/emotional support [] Crisis/trauma care [] Spiritual counseling [] Bereavement support [] Provided bereavement packet [] Provided Bible/devotional materials [] Provided toy/stuffed animal, coloring book to patient or family member [] Provided Communion [] Anointing/[place] [] Salvation [x] Completed spiritual assessment [] Other: Impact on Illness or Injury [] Angry [] Fearful [] Anxious [] Often cries [] Exhaustion [] Unable to work [] Unable to attend protestant [] Unable to walk/stand [] Unable to read [] Unable to drive [] Unable to eat/drink [] Unable to sleep [] Unable to be with family [] Patient intubated [] Other: Summary patient having trouble breathing Time spent with patient 15 min
[2019-11-30] MEDS: famotidine 20 mg/2 mL INJ IVP ×2 (09:47→18:13)
--- NOTE | 2019-11-30 13:28 | MR_ITS ---
WS: [id number] MRI LUMBAR SPINE NONCONTRAST HISTORY: back pain, DJD, leg weakness COMPARISON: 11/29/2019 TECHNIQUE: Sagittal and axial multisequence imaging is submitted. Mild degenerative disc disease in the cervical spine. Slight increase in thoracic kyphosis. Degenerative RIGHT convex curvature lumbar spine. Significant degenerative disc disease with disc spa ce narrowing and endplate osteophytes throughout the lumbar spine. L4 anterolisthesis by 5.8 mm. Mild reactive marrow edema within the endplates. No acute lumbar spine fracture. Conus terminates normally at L1. L1-L2: Diffuse annular disc bulging with facet and ligamentum flavum arthritis. No stenosis. L2-L3: L2 retrolisthesis by 3 mm. Annular disc bulging and osteophytic ridging. Mild central and infe rolateral recess stenosis. Additional mild bilateral foraminal stenosis, RIGHT greater than LEFT. L3-L4: Moderate asymmetric disc bulging and facet arthropathy as and osteophytic ridging. There is si gnificant central and bilateral subarticular recess stenosis. Bilateral foraminal disc protrusions. A t least moderate bilateral foraminal stenosis, LEFT greater than RIGHT. L4-L5: Annular disc bulging and osteophytic ridging. Marked ligamentum flavum hypertrophy. Hypertroph ic changes encroach upon the posterior and anterior thecal sac. Fluid in the facet joints. Severe jose tral and subarticular recess and LEFT foraminal stenosis. Mild RIGHT foraminal stenosis. L5-S1: Annular disc bulging and osteophytic ridging. Fluid in the facet joints bilaterally. Moderate bilateral foraminal stenosis and RIGHT subarticular recess stenosis. There is extensive increased T2 signal throughout the sacrum consistent with recently described sacra l insufficiency fracture noted bilaterally. 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 Small amount of f luid in the presacral space. May be related to trauma and sacral fractures. Ectatic atherosclerosis aorta. MR/MR lumbar spine wo con* [id number] IMPRESSION: 1. No acute lumbar spine fracture. 2. Diffuse marrow edema throughout the sacrum consistent with the recently nahomy cribed sacral insufficiency fracture. 3. Severe central, bilateral subarticular recess and LEFT foraminal stenosis a t L4-5. 4. Moderate bilateral foraminal stenosis and RIGHT subarticular recess stenosi s at L5-S1. 5. Significant central and bilateral subarticular recess stenosis with at leas t moderate bilateral foraminal stenosis at L3-4. 6. Significant degenerative disc disease and degenerative rotoscoliosis throug hout the lumbar spine. 7. L4 anterolisthesis by 5.8 mm.
--- NOTE | 2019-11-30 15:08 | PC.NURSE ---
PAtient off unit to MRI
[2019-11-30 15:52] LABS: Coronavirus Lab Test PTC SEE COMMENTS
[2019-11-30] MEDS: FUROsemide 10 mg/mL SDV 2mL 20 MG IVP (16:30)
--- NOTE | 2019-11-30 17:14 | P.CONIM_ITS ---
Providers/Reason For Consult Consulting Physican/Specialty*: Ebenezer Lopes MD/Neurosurgery Reason for Consult*: Low back pain and lower extremity symptoms Attending Physician: Imtiaz Weaver MD Primary Care Provider: Tl Valenzuela History of Present Illness History of Present Illness Sneha Sanchez is an 83 year old female who was admitted through the ED with complaints of back pain and inability to function at home. She had experienced gradually progressive low back pain for several months, which acutely worsened on the day of emergency department presentation. She had noted right hip/thigh symptoms with initial onset of back pain, with recent progression to the left lower extremity. She denied bowel/bladder dysfunction or weakness, other than that related to pain. Review of Systems Const: Denies: fever or chills Eyes: Denies: change in vision or eye discomfort ENMT: Denies: ear discharge or change in hearing Card: Reports: edema; Denies: chest pain or palpitations Resp: Denies: productive cough or coughing up blood GI: Denies: abdominal pain, vomiting or other (bowel incontinence) : Reports: urinary frequency; Denies: urinary incontinence Musc: Reports: back pain, extremity swelling and muscle weakness (lower extremity weakness related to pain) Skin/Breast: Denies: rash Neuro: Reports: weakness in extremities (related to pain) and difficulty walking; Denies: numbness in extremities Psych: Denies: anxiety or depression Andrew/Lymph: Denies: easy bruising or easy bleeding All/Imm: Denies: throat swelling, tongue swelling or facial swelling Meds/Allergies Home Medications and Allergies Home Medications Medication Instructions Recorded Confirmed Type albuterol sulfate 90 mcg/actuation 3 puff INHALATION BID PRN 09/22/19 11/29/19 History aerosol inhaler aspirin 81 mg tablet,delayed 81 mg PO DAILY 09/22/19 11/29/19 History release cholecalciferol (vitamin D3) 2,000 2,000 unit PO DAILY 09/22/19 11/29/19 History unit tablet diltiazem HCl 90 mg 90 mg PO BID 09/22/19 11/29/19 History capsule,extended release 12 hr multivitamin with min 1 tab PO DAILY 09/22/19 11/29/19 History no.36-iron,carbonyl-FA 16 mg iron-0.38 mg tablet potassium chloride 20 mEq 20 meq PO DAILY 09/22/19 11/29/19 History tablet,extended release(part/cryst) Biofreeze Roll-On 1 applic TOPICAL BID PRN 11/29/19 11/29/19 History Tylenol Arthritis Pain 1,300 mg PO TID 11/29/19 11/29/19 History budesonide-formoterol [Symbicort] 2 inh INHALATION Q12H #10.2 gm 12/01/19 Rx furosemide [Lasix] 40 mg PO DAILY #30 tab 12/01/19 Rx tramadol 25 mg PO Q6H PRN #10 tab 12/01/19 Rx tramadol 50 mg PO Q6H PRN #10 tab 12/01/19 Rx Allergies Allergy/AdvReac Type Severity Reaction Status Date / Time Penicillins Allergy Mild unknown Verified 10/28/19 11:25 clotrimazole Allergy Unknown unknown Verified 10/28/19 11:25 Current Medications Current Medications Generic Name Dose Route Start Last Admin Trade Name Freq PRN Reason Stop Dose Admin Albuterol/Ipratropium 3 ml 11/29/19 15:00 11/30/19 15:26 Duoneb INHALATION Not Given Q6H.RESPIRATORY CLARISA Aspirin 81 mg 11/30/19 09:00 11/30/19 08:21 Aspirin Ec PO 81 mg DAILY CLARISA Administration Budesonide 0.5 mg 11/29/19 20:00 11/30/19 08:23 Pulmicort INHALATION 0.5 mg BID.RESPIRATORY CLARISA Administration Diltiazem HCl 90 mg 11/29/19 18:00 11/30/19 08:21 Cardizem PO 90 mg BID CLARISA Administration Enoxaparin Sodium 40 mg 11/29/19 14:25 11/29/19 17:49 Lovenox SUBCUT 40 mg Q24H CLARISA Administration Famotidine 20 mg 11/29/19 14:25 11/30/19 09:47 Pepcid Inj IVP 20 mg Q12H CLARISA Administration Furosemide 20 mg 11/29/19 13:30 11/30/19 16:30 Lasix IVP 20 mg Q24H CLARISA Administration Tramadol HCl 50 mg 11/29/19 15:16 11/30/19 00:43 Ultram PO 50 mg Q6H PRN Administration MODERATE PAIN PFSH Acute PFSH: Medical History (Updated 11/30/19 @ 17:16 by David Lopes MD) CHF (congestive heart failure) COPD (chronic obstructive pulmonary disease) DDD (degenerative disc disease) Essential hypertension Hyperlipidemia Surgical History (Updated 12/05/19 @ 14:14 by David Lopes MD) History of section, classical Hx of adenoidectomy Hx of appendectomy Hx of tonsillectomy Social History Smoking and tobacco status: current every day smoker Vitals/I&O/Wt Last Vital Signs Temp 97.8 F 11/30/19 11:14 Pulse 60 11/30/19 11:14 Resp 18 11/30/19 11:14 BP 110/47 11/30/19 11:14 Pulse Ox 94 11/30/19 11:14 11/30/19 11/30/19 11/30/19 06:59 14:59 22:59 Intake Total 100 / 780 360 / 360 Output Total 1500 / 1500 Balance 100 / 780 -1140 / -1140 Weight last 48 hrs Weight 170 lb Physical Exam Const: COMMON NORMALS: no apparent distress and alert GENERAL APPEARANCE: cooperative, comfortable and well kempt HENMT: COMMON NORMALS: normocephalic and hearing grossly normal bilaterally HEAD & SCALP: normocephalic FACE & SINUS: face symmetric Eye: COMMON NORMALS: conjunctivae normal ALIGNMENT: Yes alignment normal CONJUNCTIVA: Yes conjunctivae normal Neck/C-Spine: COMMON NORMALS: supple and no JVD Resp: COMMON NORMALS: normal respiratory effort EFFORT & INSPECTION: Yes able to speak in complete sentences and No stridor Cardio: COMMON NORMALS: no JVD GI: COMMON NORMALS: soft to palpation and non-tender PALPATION: Yes soft Back/Pelvis: LUMBAR SPINE/LOWER BACK: Yes ROM limited, Yes pain with ROM, No lumbar spinal tenderness and Yes straight leg raise negative bilaterally PELVIS: No sciatic notch tenderness SACROILIAC JOINTS: Yes SI joint(s) abnormal (right) SI joint details: tender to palpation Extremity: GENERAL: No clubbing, No cyanosis and Yes edema Neuro: COMMON NORMALS: moves all extremities SENSORIUM/ORIENTATION: Yes alert SPEECH: speech normal MOTOR EXAM: strength 5/5 throughout (except as noted) and strength abnormal (left hip flexors 4/5, with limitation related to pain) Psych: COMMON NORMALS: mental status grossly normal, thought process normal and speech normal APPEARANCE: Yes grossly normal and Yes well kempt ATTITUDE: Yes calm and Yes engaged ACTIVITY/MOTOR BEHAVIOR: Yes appropriate eye contact SPEECH: Yes normal speech MOOD & AFFECT: Yes euthymic mood THOUGHT PROCESS: normal thought process ATTENTION/CONCENTRATION: Yes attention grossly intact INSIGHT: insight good JUDGEMENT: judgment good Skin: COMMON NORMALS: no rashes or lesions noted GENERAL SKIN EXAM: no rashes or lesions noted Data Micro: Micro: Microbiology 11/29/19 11:36 Legionella Urinary Antigen - Final Urine,Clean Catch Imaging^: MRI: Radiologist's impression: IMPRESSION: 1. No acute lumbar spine fracture. 2. Diffuse marrow edema throughout the sacrum consistent with the recently described sacral insufficiency fracture. 3. Severe central, bilateral subarticular recess and LEFT foraminal stenosis at L4-5. 4. Moderate bilateral foraminal stenosis and RIGHT subarticular recess stenosis at L5-S1. 5. Significant central and bilateral subarticular recess stenosis with at least moderate bilateral foraminal stenosis at L3-4. 6. Significant degenerative disc disease and degenerative rotoscoliosis thr oughout the lumbar spine. 7. L4 anterolisthesis by 5.[address]: Radiologist's impression: IMPRESSION: 1. Acute sacral insufficiency fracture. 2. Extensive degenerative disc disease and facet joint arthropathy throughout the lumbar spine. 3. Severe central, bilateral subarticular recess and LEFT foraminal stenosis at L4-5. 4. Moderate central and bilateral subarticular recess stenosis at L3-4. 5. Moderate RIGHT foraminal stenosis at L5-S1. 6. No acute lumbar spine fracture. 7. Tortuous ectatic abdominal aorta. Mild aneurysmal dilatation. 8. LEFT adrenal adenoma. A&P Assessment and plan (1) Stenosis, spinal, lumbar: Patient is seen for symptomatic, radiographically confirmed lumbar spinal stenosis, with associated spondylolisthesis. Dominant findings are present at L4-L5, with prominent abnormalities also noted at L3-L4 and L5-S1. A lengthy discussion occurred with the patient regarding the clinical and radiographic findings. Diagnostic and treatment options were reviewed with the risks, potential benefits, and rationale for each. Questions were answered to her reported satisfaction. The severity of the radiographic findings and the current symptoms would suggest consideration of surgery is appropriate. In view of the current coronavirus elective surgery restrictions and the absence of footdrop or cauda equina syndrome, immediate surgery would not be recommended. The patient's age/medical comorbidities and the potential need for a lumbar fusion/fixation procedure would increase the perioperative risks. The patient reports that her PCP had previously recommended against lumbar surgery. She reports no interest in consideration of surgery at this time. Recommend Lumbar flexion/extension x-rays to assess for segmental instability. Consider lumbar brace fitting if instability is identified. Continue daily Physical Therapy. Consider Pain Clinic injections as an outpatient. Consider surgical intervention if symptoms persist/progress or fail to respond to conservative treatments AND patient decides she is willing to consider surgery. Status: Acute (2) Spondylolisthesis, lumbar region: Status: Acute Consult Attestations Medical Necessity Statement: Patient is appropriate for in hospital evaluation and management of severe lumbar spinal stenosis/spondylolisthesis and multiple medical comorbidities. Time Spent in Patient Care: Greater than 35 minutes (>than 50% of time spe nt in counselling and/or direct pt care on unit) . 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
--- NOTE | 2019-11-30 17:15 | XR_ITS ---
WS: [id number] LATERAL LUMBAR SPINE: 3 view. Lateral radiographs are performed in upright neutral, flexion and extension to the patient's toleranc e. HISTORY: spondylolisthesis COMPARISON: 11/30/2023 spine. Severe degenerative disc disease throughout the lumbar spine. There is bone upon bone at several leve ls. No fractures. L4 anterolisthesis by 7.4 mm on neutral imaging. On flexion 8.6 mm and extension 6. 0 mm. Otherwise less than 2 mm retrolisthesis of L1 and L2 with no instability. Advanced atherosclerosis abdominal aorta. XR/XR lumbar spine f/e only 16482 IMPRESSION: 1. Severe spondylitic disease throughout the lumbar spine. 2. No fracture. 3. Mild instability at L4. Mild anterolisthesis of L4 on neutral imaging by 7. 4 mm.
[2019-11-30] MEDS: enoxaparin 40 mg/0.4 mL Syringe SUBCUT (18:13)
[2019-12-01] VITALS (12 sets, daily range): BP systolic 121–166; BP diastolic 59–69; PULSE 64–83; RESP 16–20; TEMP 36.4–37.2; O2SAT 85–96
[2019-12-01] MEDS: ipratropium-albuterol 3 mL Neb INHALATION ×3 (02:14→15:02)
[2019-12-01 05:34] LABS: Basophils % 0.5 %; Eosinophils # 0.1 10^3/uL (0.0-0.8); Eosinophils % 0.6 %; Hematocrit 41.6 % (37.0-47.0); Hemoglobin 13.4 g/dL (11.5-15.3); Lymphocytes # 0.8 10^3/uL (0.8-4.8); Lymphocytes % 9.9 %; Mean Corpuscular HGB Conc 32.2 g/dL (30.0-36.0); Mean Corpuscular Hemoglobin 31.6 pg (28.0-34.0); Mean Corpuscular Volume 98.1 fL (81-99); Mean Platelet Volume 9.8 fL (7.4-10.4); Monocytes % 12.8 %; Neutrophils # 6.1 10^3/uL (1.8-7.7); Neutrophils % 75.8 %; Nucleated Red Blood Cells % 0 %; Platelet Count 284 10^3/cmm (130-400); Red Blood Count 4.24 10^6/uL (4.1-5.3); White Blood Count 8.1 10^3/uL (4.0-10.0)
[2019-12-01] MEDS: famotidine 20 mg/2 mL INJ IVP (05:57)
[2019-12-01 05:58] LABS: Alanine Aminotransferase 13 U/L (0-33); Albumin Level 3.1 g/dL (3.5-5.2); Alkaline Phosphatase 158 IU/L (35-105); Anion Gap 12.1 (5-19); Aspartate Amino Transferase 21 U/L (0-32); Blood Urea Nitrogen 15 mg/dL (8-23); Calcium 8.9 mg/dL (8.5-10.5); Carbon Dioxide 35 mmol/L (22-29); Chloride 88 mmol/L (98-107); Creatinine Clr Calc Pharmacy 54.2285; Globulin 3.2 g/dL (1.3-4.6); Glucose 116 mg/dL (65-115); Osmolality Calculated 269 mOsm/kg (285-295); Potassium 4.1 mmol/L (3.5-5.1); Sodium 131 mmol/L (136-145); Total Bilirubin 0.3 mg/dL (0.15-1.2); Total Protein 6.3 g/dL (6.6-8.7)
[2019-12-01] MEDS: budesonide 0.5 mg/2 mL Neb INHALATION (08:01)
[2019-12-01] MEDS: aspirin 81 mg EC Tablet PO (09:22)
[2019-12-01] MEDS: dilTIAZem 60 mg Tablet 90 MG PO (09:23)
--- NOTE | 2019-12-01 13:00 | P.PN_ITS ---
Subjective Subjective: Interval history: Much better today. Vitals/I&O/Wt Last Vital Signs Temp 98.7 F 12/01/19 11:13 Pulse 74 12/01/19 11:13 Resp 18 12/01/19 11:13 BP 165/69 12/01/19 11:13 Pulse Ox 95 12/01/19 11:13 11/30/19 12/01/19 12/01/19 22:59 06:59 14:59 Intake Total 360 / 360 Output Total 1600 / 3100 500 / 500 Balance -1600 / -2740 -140 / -140 Physical Exam Const: COMMON NORMALS: no apparent distress and alert GENERAL APPEARANCE: cooperative, comfortable and well kempt OTHER: Sitting in chair at bedside eating lunch. HENMT: COMMON NORMALS: normocephalic and hearing grossly normal bilaterally HEAD & SCALP: normocephalic FACE & SINUS: face symmetric Eye: COMMON NORMALS: conjunctivae normal ALIGNMENT: Yes alignment normal CONJUNCTIVA: Yes conjunctivae normal Neck/C-Spine: COMMON NORMALS: supple and no JVD Resp: COMMON NORMALS: normal respiratory effort EFFORT & INSPECTION: Yes able to speak in complete sentences, No tachypneic and No stridor Cardio: COMMON NORMALS: no JVD Back/Pelvis: LUMBAR SPINE/LOWER BACK: Yes ROM limited and Yes straight leg raise negative bilaterally SACROILIAC JOINTS: Yes SI joint(s) abnormal (right) Extremity: GENERAL: No clubbing, No cyanosis and Yes edema Neuro: COMMON NORMALS: moves all extremities SENSORIUM/ORIENTATION: Yes alert SPEECH: speech normal MOTOR EXAM: strength 5/5 throughout (except as noted) and strength abnormal (Mild diffuse low back pain related lower extremity giveaway weakness. She has prominent left hip flexor weakness that appears to be only partly explained by pain.) Psych: COMMON NORMALS: mental status grossly normal, thought process normal and speech normal APPEARANCE: Yes grossly normal and Yes well kempt ATTITUDE: Yes calm and Yes engaged ACTIVITY/MOTOR BEHAVIOR: Yes appropriate eye contact SPEECH: Yes normal speech MOOD & AFFECT: Yes euthymic mood THOUGHT PROCESS: normal thought process ATTENTION/CONCENTRATION: Yes attention grossly intact INSIGHT: insight good JUDGEMENT: judgment good Skin: COMMON NORMALS: no rashes or lesions noted GENERAL SKIN EXAM: no rashes or lesions noted Data : 12/01/19 04:33 12/01/19 04:33 Other Xray: Radiologist's impression: IMPRESSION: 1. Severe spondylitic disease throughout the lumbar spine. 2. No fracture. 3. Mild instability at L4. Mild anterolisthesis of L4 on neutral imaging by 7.4 mm. A&P Assessment and plan (1) Stenosis, spinal, lumbar: Patient is seen for symptomatic, radiographically confirmed lumbar spinal stenosis, with associated spondylolisthesis. Dominant findings are present at L4-L5, with prominent abnormalities also noted at L3-L4 and L5-S1. A lengthy discussion has occurred with the patient regarding the clinical and radiographic findings. Diagnostic and treatment options have been reviewed with the risks, potential benefits, and rationale for each. Questions have been answered to her reported satisfaction. The severity of the radiographic findings and the current symptoms would suggest consideration of surgery is appropriate. In view of the current coronavirus elective surgery restrictions and the absence of footdrop or cauda equina syndrome, immediate surgery would not be recommended. In view of the patient's age/medical comorbidities and the potential need for a lumbar fusion/fixation procedure, surgical risks would be elevated. The patient reports that her PCP had previously recommended against lumbar surgery. She continues to report no interest in consideration of surgery at this time. Lumbar flexion/extension x-rays were obtained after yesterday's consultation, and mild segmental instability is suggested at L4-L5. A lumbar brace fitting has been ordered. She was instructed on the rationale for brace wear, and a PRN brace protocol was encouraged. Continue daily Physical Therapy during hospital stay. Physical therapy via home health services may be appropriate following discharge. Consider Pain Clinic injections as an outpatient. Consider surgical intervention if symptoms persist/progress or fail to respond to conservative treatments AND patient decides she is willing to consider surgery. Discussed the case with Dr. Weaver, who is anticipating patient discharge later today. Neurosurgery outpatient follow-up in 2-4 weeks is recommended. Status: Acute (2) Spondylolisthesis, lumbar region: Status: Acute Attestations Medical Necessity Statement*: Patient is appropriate for in hospital ev aluation and treatment of disabling lumbar spinal stenosis, spondylolisthesis, and active medical issues. Time Spent in Patient Care: Greater than 50% of greater than 15 minutes was spent in direct [id number] patient counseling regarding the issues discussed above. 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
--- NOTE | 2019-12-01 13:30 | P.DS_ITS ---
Discharge Providers Date of Admission: 11/29/19 15:06 Date of Discharge: December 01, 2019 Attending Provider at Admission: Alia Ratliff MD Attending Provider at Discharge: Imtiaz Weaver MD Consults: Neurosurgery: Dr. Lopes Primary Care Provider: Tl Valenzuela Diagnoses at Discharge Discharge Diagnosis (1) Stenosis, spinal, lumbar: Status: Acute (2) Spondylolisthesis, lumbar region: Status: Acute Reason for Visit Reason for Visit: Reason For Visit: HYPONATREMIA Hospital Course Discharge Summary: Sneha Sanchez is a 83 year old female with past medical history of hypertension, hyperlipidemia, diastolic heart failure, degenerative disc disorder, COPD not on baseline oxygen presents to the ER November 28 with complaint of weakness which is been getting worse for last 1 week and today morning she was not able to get out of bed. Patient states she started having extreme acute pain in her back in August which was not preceded by any kind of fall, injury, motor vehicle accident. For the back pain she is been following up with her primary care physician and x-ray was done which showed extensive degenerative disorder. Since the back pain patient is also been having swelling in her legs which has been increasing gradually. Patient denies of having any pain, tenderness, blisters in her leg. Patient denies of having any chest pain, nausea, vomiting, palpitations, dizziness. Patient has a history of COPD so has some shortness of breath at baseline and it has not increased more than that. She denies of having any difficulty in breathing when lying down or exertion. Patient states usually since August her mobility has been worsening and previously she used to use 1 cane to walk which is gradually come down to her using/needing a walker now. She denies of having any bladder accidents but does state that she has had urinary hesitancy. Patient last had bowel movements 3 days ago. She has suffered on and off with constipation in the past. She denies of having any recent sick contacts, flulike symptoms, travels. She complains of having cough with expectoration which has been at its baseline. Recent echocardiogram from 2 weeks ago showed an EF of 65% with grade 2 diastolic dysfunction and RVSP of 50 mmHg. Patient was in mild fluid overload when he was she was admitted so she was started on IV Lasix to which she responded well. Her blood work from ER also showed that she was in acute hyponatremia with sodium levels down to 125 which is thought to be because of hypervolemic state. Her sodium levels responded well to the diuretics and was back to her baseline on the day of discharge. For her back pain she underwent CT lumbar spine which showed severe degenerative disorder but was not really informative regarding the nerve impingement for which she underwent lumbar spine MRI. She was also seen by neurosurgery for which she was recommended spine surgery given the extensive disease. Patient stated she does not feel comfortable with the surgery and decided to go for conservative management. Patient is advised to follow-up with Dr. Lopes as an outpatient in next 4 weeks from where she would also get work-up and treatment for pain clinic. Patient was seen by physical therapy and she did well. Patient was given an option of going to halfway for further rehabilitation to which she refused so home health has been arranged for her. Home oxygen evaluation was done and she was provided with oxygen for home accordingly. For her lumbar spine severe degenerative disorder she was fitted for lumbar spine brace. She is been discharged hemodynamically stable condition with advised to follow-up with his primary care physician and Dr. Lopes. Physical Exam Narrative: EXAM NARRATIVE: General: No acute distress, AO x3 HEENT: PERRLA, pupils bilaterally equal and reactive Chest: Normal vesicular breath sounds, bilateral fine crackles up to the middle zone, occasional wheezing bilaterally, equal good air entry bilaterally CVS: S1-S2 regular, no murmurs, no tachycardia, no gallops, no rubs Abdomen: Soft, nontender, no organomegaly, bowel sounds present Neuro: No focal deficits, no facial deformity, AO x3, power 5/5 in all limbs No concerns for foot drop. Discharge Data Data Completed and Pending: Completed Studies During Hospitalization Category Date Time Status CT chest wo con 7 1250 Urgent Cat Scan 11/29/19 13:[address] lumbar spine w o con* [id number] Routi ne Cat Scan 11/29/19 13:25 Completed XR chest 1V hasmukh ble [id number] Urgent Exams 11/29/19 11:07 Completed XR lumbar spine f /e only [id number] Rout ine Exams 11/30/19 17:15 Completed MR lumbar spine w o con* [id number] Routi ne MRI 11/30/19 13:28 [place] [id number] Urgent Ultrasound 11/29/19 14:25 Completed Labs from last 24 hours 12/01/19 12/01/19 11/29/19 04:33 04:33 13:20 WBC 8.1 RBC 4.24 Hgb 13.4 Hct 41.6 MCV 98.1 MCH 31.6 MCHC 32.2 RDW 13.0 Plt Count 284 MPV 9.8 Neut % (Auto) 75.8 Lymph % (Auto) 9.9 [place] % (Auto) 12.8 Eos % (Auto) 0.6 Baso % (Auto) 0.5 Neut # (Auto) 6.1 Lymph # (Auto) 0.8 [place] # (Auto) 1.0 H Eos # (Auto) 0.1 Baso # (Auto) 0.0 Nucleated RBC % (a uto) 0 Nucleated RBCs # 0.0 Sodium 131 L Potassium 4.1 Chloride 88 L Carbon Dioxide 35 H Anion Gap 12.1 BUN 15 Creatinine 0.4 L Glucose 116 H Calculated Osmolal ity 269 L Calcium 8.9 Total Bilirubin 0.3 AST 21 ALT 13 Alkaline Phosphata se 158 H Total Protein 6.3 L Albumin 3.1 L Globulin 3.2 Nasal/Oral COVID-1 9 PCR See comments Vitals: Last Vital Signs Temp 98.7 F 12/01/19 11:13 Pulse 74 12/01/19 11:13 Resp 18 12/01/19 11:13 BP 165/69 12/01/19 11:13 Pulse Ox 95 12/01/19 11:13 Discharge Plan Discharge Patient Disposition: Home Health Service Condition: Stable Prescriptions: New tramadol 50 mg Tablet 50 mg PO Q6H PRN (Reason: Moderate Pain) Qty: 10 RF: 0 Symbicort 160-4.5 mcg/actuation HFA aerosol inhaler 2 inh INHALATION BID Qty: 10.2 RF: 0 Continued diltiazem HCl 90 mg capsule,extended release 12 hr 90 mg PO BID RF: 0 albuterol sulfate [Ventolin HFA] 90 mcg/actuation HFA aerosol inhaler 3 puff INHALATION BID PRN (Reason: Shortness Of Breath) RF: 0 potassium chloride [Klor-Con M20] 20 mEq tablet,ER particles/crystals 20 meq PO DAILY RF: 0 aspirin 81 mg tablet,delayed release (DR/EC) 81 mg PO DAILY RF: 0 cholecalciferol (vitamin D3) 2,000 unit tablet 2,000 unit PO DAILY RF: 0 Geritol Complete 16 mg iron- 0.38 mg tablet 1 tab PO DAILY RF: 0 Tylenol Arthritis Pain 650 mg Tablet Extended Release 1,300 mg PO TID RF: 0 Biofreeze Roll-On 1 applic topical BID PRN (Reason: unknown) RF: 0 furosemide [Lasix] 20 mg tablet 20 mg PO DAILY Qty: 30 RF: 1 Discharge Orders: Discharge Order (Routine); Ordered 12/01/19 Ordered By: Imtiaz Weaver Other Ambulatory Orders: DME: Walker (Order) Location: None Selected Ordered By: Imtiaz Weaver Referrals: David Lopes MD [Physician] - 1 month Suzanna Delarosa FNP [Nurse Practitioner] - 12/15/19 10:00 am Discharge Diet: Usual diet Discharge Activity: Increase activity as tolerated Activity Restrictions/Additional Instructions: Please follow-up with Dr. Lopes in 2 to 4 weeks. Consider pain clinic injections as an outpatient following with Dr. Lopes. Please continue physical therapy as per the recommendations with home health. A lumbar brace fitting has been ordered Discharge Attestations Time Spent in Discharge Care*: greater than 30 min Specific Discharge Activities: Specific discharge activities: educating patient, discussing with pcp/other providers, discussing with case reviewer/social workers/dc planners, documenting/other paperwork and evaluating patient/reviewing data Status at Discharge: Cognitive status at discharge: cognitively intact , Behavioral status at discharge: cooperative , Functional status at discharge: uses cane/walker Overall status at discharge: patient is progressing back to baseline Quality Metrics Clinical Quality Measures During this hospital stay, did patient experience: None Coding Level of Care Code 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
== END 2019-12-01 17:47 | disposition home health service (06) | DRG 641 ==
LOC: ER 12:09 → MEDSURG 13:12
PROVIDERS: Admitting Provider Student in an Organized Health Care Education/Training Program; Emergency Provider Physician Assistant; Family Provider Nurse Practitioner Family; PCP Nurse Practitioner Family; Visit Provider Student in an Organized Health Care Education/Training Program
DX: E87.1 Hypo-osmolality and hyponatremia (principal); I50.32 Chronic diastolic (congestive) heart failure; M48.061 Spinal stenosis, lumbar region without neurogenic claudication; M43.16 Spondylolisthesis, lumbar region; I11.0 Hypertensive heart disease with heart failure; E78.5 Hyperlipidemia, unspecified; J44.9 Chronic obstructive pulmonary disease, unspecified; Z79.82 Long term (current) use of aspirin; M51.36 Other intervertebral disc degeneration, lumbar region; F17.210 Nicotine dependence, cigarettes, uncomplicated
CPT/HCPCS: 12345; 36415; 71045; 71250; 72120; 72131; 72148; 80053; 80061; 81003; 82306; 82310; 82436; 83036; 83880; 83970; 84133; 84145; 84300; 84443; 84484; 85025; 87449; 87635; 87804; 93005; 93970; 94640; 94664; 96372; 96375; 97161; 97530; 97760; 99282; G0378; J1650; J1940; J3490; J7626; L0637

== ENCOUNTER → 2020-02-13 11:00 | Outpatient (BNVA) | payer MEDICARE, SELFPAY | PROVIDERS: Family Provider Nurse Practitioner Family; PCP Family Medicine; Visit Provider Nurse Practitioner Family | DX: Z51.81 Encounter for therapeutic drug level monitoring (principal); Z79.899 Other long term (current) drug therapy; E87.6 Hypokalemia; I50.42 Chronic combined systolic (congestive) and diastolic (congestive) heart failure | CPT/HCPCS: 80053 ==

== ENCOUNTER → 2020-05-09 11:32 | Outpatient (BNVA) | payer MEDICARE, SELFPAY | PROVIDERS: Family Provider Nurse Practitioner Family; PCP Family Medicine; Visit Provider Nurse Practitioner Family | DX: E55.9 Vitamin D deficiency, unspecified (principal); I11.0 Hypertensive heart disease with heart failure; I50.42 Chronic combined systolic (congestive) and diastolic (congestive) heart failure; Z79.899 Other long term (current) drug therapy | CPT/HCPCS: 80053; 82306 ==

== ENCOUNTER → 2021-01-16 11:09 | Outpatient (BNVA) | payer MEDICARE, SELFPAY | PROVIDERS: Family Provider Nurse Practitioner Family; PCP Nurse Practitioner Family; Visit Provider Nurse Practitioner Family | DX: I50.42 Chronic combined systolic (congestive) and diastolic (congestive) heart failure (principal); J44.9 Chronic obstructive pulmonary disease, unspecified | CPT/HCPCS: 80053; 83880 ==

== ENCOUNTER 2021-03-28 13:09 | Outpatient (CLI) | payer MEDICARE, SELFPAY ==
--- NOTE | 2021-03-28 13:30 | USCV_ITS ---
Sneha Sanchez Age: 85 Gender: F : 1935 Exam Date: 03/28/2021 13:42 Ordering Phys: Maria E Carrasco MD ([email or web address]) Technologist: Jessica Lassiter Exam Location: [facility] [place] Indication: LEFT LEG PAIN HISTORY: Left leg pain and swelling PROCEDURES: On the left side, the common femoral, superficial femoral, profunda femoral, popliteal, posterior tibial, greater saphenous veins, and the peroneal trunk were identified and interrogated in the standard fashion. These veins were found to be easily compressible with spontaneous blood flow. FINDINGS: No DVT or superficial thrombus in LLE. In the popliteal fossa area a complex cystic structure is seen measuring 3.88cm x 1.79cm Multiple echolucent areas are noted in the subcutaneous tissue. CONCLUSIONS No evidence of DVT in the above-mentioned identifiable veins. Possible Joiner's cyst in the left popliteal region, measuring 3.88 x 1.79 cm. Features of fluid retention/edema in the lower extremities Dr Maria E Carrasco MD FAC (Electronically Signed) Final Date: 28 March 2021 14:57 S
== END 2021-03-28 13:10 | disposition home or self-care (01) ==
PROVIDERS: PCP Nurse Practitioner Family; Visit Provider Internal Medicine Cardiovascular Disease
DX: I35.0 Nonrheumatic aortic (valve) stenosis (principal); M79.605 Pain in left leg; I50.33 Acute on chronic diastolic (congestive) heart failure; N18.9 Chronic kidney disease, unspecified; R06.02 Shortness of breath
CPT/HCPCS: 80048; 83880; 84443; 93971

== ENCOUNTER → 2021-04-09 10:37 | Outpatient (BNVA) | payer MEDICARE, SELFPAY | PROVIDERS: PCP Nurse Practitioner Family; Visit Provider Internal Medicine Cardiovascular Disease | DX: I50.33 Acute on chronic diastolic (congestive) heart failure (principal); I50.42 Chronic combined systolic (congestive) and diastolic (congestive) heart failure; M79.89 Other specified soft tissue disorders; E78.5 Hyperlipidemia, unspecified | CPT/HCPCS: 80048; 83880 ==

== ENCOUNTER 2021-05-02 13:52 | Outpatient (CLI) | payer MEDICARE, SELFPAY ==
--- NOTE | 2021-05-02 14:15 | USCV_ITS ---
Sneha Sanchez Age: 85 Gender: F : 1935 Exam Date: 05/02/2021 15:01 Ordering Phys: Maria E Carrasco MD ([email or web address]) Technologist: MARIANA Exam Location: [facility] [place] Indication: BP: 120 / 60 HR: 61 Rhythm: Other Technical Quality: Adequate MEASUREMENTS (Male / Female) Normal Values 2D ECHO LV Diastolic Diameter PLAX 5.0 cm 4.2 - 5.9 / 3.9 - 5.3 cm LV Systolic Diameter PLAX 3.6 cm IVS Diastolic Thickness 1.6 cm 0.6 - 1.0 / 0.6 - 0.9 cm IVS Systolic Thickness 2.4 cm LVPW Diastolic Thickness 1.4 cm 0.6 - 1.0 / 0.6 - 0.9 cm LVPW Systolic Thickness 1.9 cm LVOT Diameter 2.0 cm LV Ejection Fraction 2D Teich 54.4 % LV Ejection Fraction MOD 2C 48.1 % LV Ejection Fraction 2C AL 43.6 % LA Diameter 3.1 cm LA Width 3.5 cm LA Height 4.8 cm RA Width 4.7 cm RA Height 4.5 cm Aorta at Sinotubular Diameter 1.7 cm M-MODE Aortic Annulus Diameter 2.7 cm LA Ao Ratio MM 1.2 DOPPLER AV Peak Velocity 264.0 cm/s LVOT Peak Velocity 100.0 cm/s AV Area Cont Eq vti 1.3 cm squared AV Area Cont Eq pk 1.2 cm squared MV Peak Velocity 220.0 cm/s MV Area PHT 1.8 cm squared Mitral E to A Ratio 0.9 MV E' Velocity 150.0 cm/s TR Peak Velocity 246.9 cm/s TR Peak Gradient 24.4 mmHg TR Mean Velocity 203.8 cm/s TR Mean Gradient 18.8 mmHg TR Velocity Time Integral 95.1 cm Right Atrial Pressure 3.0 mmHg Pulmonary Artery Systolic Pressu 27.4 mmHg PV Peak Velocity 135.7 cm/s RV Acceleration Time 0.1 s RV Ejection Time 0.3 s RV AcT/ET 0.3 FINDINGS Left Ventricle Normal left ventricular size and systolic function, EF 55 %. Moderate left ventricular hypertrophy. No regional wall motion abnormalities. Right Ventricle The right ventricle is normal in size and function. Right Atrium Mildly increased right atrial size. Left Atrium Mildly increased left atrial size. Mitral Valve Mild mitral valve stenosis. Moderate to heavy mitral annular calcification Mitral valve area by pressure half-time was 1.8 cm squared. Peak velocity of 2.2 m/s.trace mitral valve regurgitation. Aortic Valve Moderate aortic valve stenosis, mean gradient 11.7 mmHg, JULIA 1.3 cm squared. Trace to mild aortic valve regurgitation. Peak velocity of 2.67 m/s. Peak gradient of 29 mmHg Tricuspid Valve Trace tricuspid valve regurgitation. Estimated pulmonary artery peak systolic pressure of 31 mmHg Pulmonic Valve Structurally normal pulmonic valve without significant stenosis. There is no pulmonic regurgitation. Pericardium Normal pericardium without effusion. Aorta Normal ascending aorta dimension. CONCLUSIONS Normal left ventricular size and systolic function, EF 55 %. Moderate left ventricular hypertrophy. No regional wall motion abnormalities. Mild mitral valve stenosis. Mitral valve area by pressure half-time was 1.8 cm squared. Moderate to heavy mitral annular calcification Moderate aortic valve stenosis, mean gradient 11.7 mmHg, JULIA 1.3 cm squared. Peak velocity of 2.67 m/s. Peak gradient of 29 mmHg. Trace to mild aortic valve regurgitation. Trace tricuspid valve regurgitation. Estimated pulmonary artery peak systolic pressure of 31 mmHg. There is no pericardial effusion. There are no intracardiac masses. No previous study is available for comparison. Dr Maria E Carrasco MD [facility] (Electronically Signed) Final Date: 06 May 2021 18:32 S
--- NOTE | 2021-05-02 15:00 | USCV_ITS ---
Daniel Sneha Age: 85 Gender: F : 1935 Exam Date: 05/02/2021 14:43 Ordering Phys: Maria E Carrasco MD ([email or web address]) Technologist: Patricia Duran [place]am [place] [facility] [place] Indication: EVAL FOR STENOSIS Risk Factors: Previous Vascular Surgery: Right Brachial BP: / Left Brachial BP: / Right Left Velocity (cm/s) Spectral Plaque Velocity (cm/s) Spectral Plaque Syst/Diast Broadening Syst/Diast Broadening 94.80/ 11.00 Prox CCA 82.70 / 14.30 80.50/ 16.50 Mid CCA 62.80 / 9.90 75.20/ 14.30 Distal CCA 72.80 / 19.80 111.70/23.70 Prox ICA 237.90/ 45.80 123.40/28.40 Mid ICA 157.20/ 34.90 219.60/41.60 Distal ICA 134.10/ 26.80 202.80 ECA 163.10 2.32 ICA/CCA 2.88 Antegrade Vertebral Antegrade 71.70/ 20.90 cm/s 85.40/ 21.80 cm/s Tri Subclavian Tri 119.1 178.7 0 0 FINDINGS Mild to moderate diffuse plaques in the common carotid arteries bilaterally Moderate heterogeneous plaques at the right bifurcation and proximal internal carotid artery Moderate to heavy heterogeneous plaques at the bifurcation and internal carotid artery on the left side. Elevated velocity in the right external carotid artery Antegrade flow in the vertebral arteries bilaterally CONCLUSIONS Moderate heterogeneous plaques at the right bifurcation and proximal internal carotid artery with velocity elevation, consistent with a less than 50% stenosis Moderate to heavy heterogeneous plaques at the bifurcation and internal carotid artery on the left side with velocity elevation, consistent with 50 to 69% stenosis. Elevated velocity in the external carotid artery on the right side, suggestive of hemodynamically significant stenosis. Elevated velocity in the right distal internal carotid artery, may suggest hemodynamically significant stenosis. Consider CTA, to better evaluate the distal artery. No similar previous studies are available for comparison Dr Maria E Carrasco MD [facility] (Electronically Signed) Final Date: 07 May 2021 10:02 S
== END 2021-05-02 13:53 | disposition home or self-care (01) ==
LOC: US 13:58
PROVIDERS: PCP Nurse Practitioner Family; Visit Provider Internal Medicine Cardiovascular Disease
DX: R06.00 Dyspnea, unspecified (principal); I77.9 Disorder of arteries and arterioles, unspecified; I65.23 Occlusion and stenosis of bilateral carotid arteries; I08.3 Combined rheumatic disorders of mitral, aortic and tricuspid valves
CPT/HCPCS: 93306; 93880

== ENCOUNTER → 2021-05-14 11:03 | Outpatient (BNVA) | payer MEDICARE, SELFPAY | PROVIDERS: PCP Nurse Practitioner Family; Visit Provider Nurse Practitioner Family | DX: E78.5 Hyperlipidemia, unspecified (principal); M79.89 Other specified soft tissue disorders; I50.42 Chronic combined systolic (congestive) and diastolic (congestive) heart failure; I65.23 Occlusion and stenosis of bilateral carotid arteries; I10 Essential (primary) hypertension | CPT/HCPCS: 80048 ==

== ENCOUNTER 2021-05-20 14:47 | Observation (INO) | payer MEDICARE, SELFPAY ==
[2021-05-20] VITALS (35 sets, daily range): BP systolic 101–176; BP diastolic 31–75; PULSE 60–121; RESP 8–31; TEMP 36.6–37; O2SAT 73–98; BMI 20.9; BMI 21.2
--- NOTE | 2021-05-20 15:05 | XRR_ITS ---
PROCEDURE INFORMATION: Exam: XR Chest Exam date and time: 05/20/2021 3:05 PM Age: 85 years old Clinical indication: Patient HX: Recently diagnosed for congestive heart failure. Patient is very pale. Patient states she complains of fatigue and shortness of breath if she exerts herself. ; Additional info: Cough TECHNIQUE: Imaging protocol: XR of the chest. Views: 1 view. COMPARISON: CT chest con [id number] 11/29/2019 1:58 PM FINDINGS: Lungs: Emphysema. 2.5 cm left upper lobe nodule measures larger than on the prior CT. The lungs are otherwise clear. Pleural spaces: Unremarkable. No pleural effusion. No pneumothorax. Heart/Mediastinum: Unremarkable. No cardiomegaly. Bones/joints: Mild thoracic curvature. XR/XR chest 1V portable [id number] IMPRESSION: 1. Larger 2.5 cm left pulmonary nodule. A malignant neoplastic process is not excluded. Follow-up with CT imaging and comparison to prior study recommended.
--- NOTE | 2021-05-20 15:06 | ECG_ITS ---
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 [employer]acker: : 1935 Requested By: Joel Willis Order Number: [id number] Reading MD: Measurements Intervals [place] Rate: 81 P: [place]: QRS: -28 QRSD: 120 T: 151 QT: 418 QTc: 486 Interpretive Statements ATRIAL FIBRILLATION WITH ABERRANT CONDUCTION OR VENTRICULAR PREMATURE COMPLEXES POSSIBLE RIGHT VENTRICULAR CONDUCTION DELAY [RSR (QR) IN V1/V2] POSSIBLE LEFT VENTRICULAR HYPERTROPHY [VOLTAGE CRITERIA PLUS LAE OR QRS WIDENING] POSSIBLE SEPTAL MYOCARDIAL INFARCTION , OF INDETERMINATE AGE [30 ms Q WAVE IN V1/V2] LATERAL MYOCARDIAL INFARCTION , OF INDETERMINATE AGE [40+ ms Q WAVE AND/OR ST/T ABNORMALITY IN I/aVL/V5/V6] No previous ECG available for comparison [email or web address]
--- NOTE | 2021-05-20 15:07 | W.ED.GENADLT ---
HPI - General Adult General: Chief complaint: Shortness of Breath/Dyspnea Stated complaint: WEAKNESS Time Seen by Provider: 05/20/21 14:58 History of Present Illness: HPI narrative: This patient presents to the emergency department his request evaluation for generalized weakness. Patient states this has been going on for some time and recently diagnosed for congestive heart failure. Upon my arrival to the exam room patient is very pale. Patient states she complains of fatigue and shortness of breath if she exerts herself. Will do medical evaluation treat as needed Onset (ago): day(s) Associated symptoms: Reports dyspnea; Deny chest pain, headache(s), nausea, rash, palpitations or vomiting Review of Systems General: Reports: 10 or more systems reviewed and unremarkable except in HPI and below Const: Reports: fatigue; Denies: fever(s), chills or body aches Eyes: Denies: change in vision or blurry vision ENMT: Denies: throat pain, hoarseness or mouth pain Card: Denies: chest pain, palpitations, irregular heart rhythm, edema, swelling of feet/ankles or lightheadedness Resp: Reports: dyspnea; Denies: productive cough, non-productive cough, wheezing or pain on inspiration GI: Denies: abdominal pain, nausea or vomiting : Denies: flank pain, difficulty voiding, dysuria, urinary frequency, urinary urgency or urinary hesitancy Musc: Denies: neck pain, back pain, extremity pain, extremity swelling, joint pain, joint swelling, joint redness, joint warmth or limited range of motion Skin/Breast: Denies: rash, pruritus, erythema or skin tenderness Neuro: Denies: headache(s), numbness in extremities or weakness in extremities Psych: Denies: anxiety or depression PFSH ED PFSH: Medical History (Updated 05/20/21 @ 15:48 by Joel Willis MD) CHF (congestive heart failure) COPD (chronic obstructive pulmonary disease) DDD (degenerative disc disease) Essential hypertension Hyperlipidemia Vitamin D deficiency Surgical History History of section, classical Hx of adenoidectomy Hx of appendectomy Hx of tonsillectomy Family History Mother CAD (coronary artery disease) Diabetes Father Cancer Other Hypertension Hypothyroid Denies family history of Clotting disorder Dementia Chronic kidney disease (CKD) Suicide Anesthesia complication Bleeding disorder Lung disease Stroke Social History Alcohol intake: never Physical Exam Const: COMMON NORMALS: no acute distress, average body habitus, patient oriented x3, no limitations, healthy appearing, alert and well nourished HENMT: COMMON NORMALS: normocephalic, atraumatic, hearing grossly normal bilaterally, external ears normal, EAC's normal, TM's normal bilaterally, Normal external nose present, Normal nasal mucous membranes and turbinates present, moist oral mucous membranes, oropharynx normal, dentition normal and gingiva normal HEAD & SCALP: normocephalic and atraumatic NOSE: Normal external nose present and Normal nasal mucous membranes and turbinates present EXTERNAL EAR: Yes external ears normal EXTERNAL AUDITORY CANAL: EAC's normal TYMPANIC MEMBRANE: TM's normal bilaterally Neck/C-Spine: COMMON NORMALS: full ROM, no lymphadenopathy, supple, no meningeal signs, no JVD, Thyroid normal and No carotid bruits THYROID: Thyroid normal Chest: COMMONS NORMALS: normal inspection of the chest, normal palpation of entire chest wall, normal inspection of the breasts and normal palpation of the breasts Breast/axilla inspection: Yes normal inspection of the breasts BREAST/AXILLA PALPATION: Yes normal palpation of the breasts Resp: COMMON NORMALS: normal respiratory effort, No retractions, No use of accessory muscles, clear to auscultation bilaterally and percussion normal AUSCULTATION: clear to auscultation bilaterally PERCUSSION: percussion normal Cardio: COMMON NORMALS: no JVD, regular rate, regular rhythm, S1 normal heart sound present, S2 normal heart sound present, No gallops present (Cardio), No clicks present (Cardio), No murmurs present (Cardio), No rub (Cardio) and Peripheral pulses 2+ throughout RATE: regular rate RHYTHM: regular rhythm HEART SOUNDS: S1 normal heart sound present and S2 normal heart sound present PERIPHERAL PULSES: Peripheral pulses 2+ throughout GI: COMMON NORMALS: Normal to inspection, nondistended, normoactive bowel sounds present, Soft to palpation, non-tender, No hepatosplenomegaly present, no masses and no bruits PALPATION: Yes Soft to palpation and Yes No hepatosplenomegaly present : COMMON NORMALS: Yes no CVA tenderness, Yes normal external appearance, Yes normal appearance of the vagina, Yes normal appearance of the cervix, Yes normal bimanual exam, Yes No adnexal tenderness and Yes no masses BLADDER/KIDNEY EXAM: Yes no CVA tenderness BIMANUAL EXAM - VAGINA & UTERUS: Yes normal bimanual exam Back/Pelvis: COMMON NORMALS: no CVA tenderness, thoracic and lumbar spine normal to inspection, no thoracic nor lumbar tenderness, thoraco-lumbar ROM normal and straight leg raise negative bilaterally Extremity: COMMON NORMALS: normal to inspection, full ROM, capillary refill normal, no joint enlargement, no clubbing, cyanosis or edema, no calf tenderness and no pedal edema Neuro: COMMON NORMALS: patient oriented x3 SENSORIUM/ORIENTATION: Yes alert MENINGEAL SIGNS: Yes no meningeal signs Skin: NARRATIVE SKIN EXAM: Patient has significant pale. Under the eyes and the conjunctive is significantly pale. Course Reevaluation(s): Reevaluation #1: I did discuss leg with patient and family my concern severe anemia and melanotic stools. Patient is only on aspirin. Patient will be getting 2 units of blood ordered to the emergency department. Patient be admitted to the hospital. Time: 15:46 Consultations: Consultation #1: I did discuss leg with Dr. Grace he is accepted this patient for admission. He request reconsult GI. Time: 15:47 Consultation #2: I did discuss leg with Dr. Monique's general surgeon he will see patient Time: 15:54 Vital Signs: Vital signs: Vital Signs Temperature 98.2 F 05/20/21 15:06 Pulse Rate 75 05/20/21 15:40 Respiratory Rate 18 05/20/21 15:40 Blood Pressure 107/56 05/20/21 15:40 Pulse Oximetry 96 05/20/21 15:40 MDM - General Adult MDM Narrative: Medical decision making narrative: This patient presents to the emergency department his request evaluation for generalized weakness. Patient states this has been going on for some time and recently diagnosed for congestive heart failure. Upon my arrival to the exam room patient is very pale. Patient states she complains of fatigue and shortness of breath if she exerts herself. Will do medical evaluation treat as needed I did discuss leg with patient and family my concern severe anemia and melanotic stools. Patient is only on aspirin. Patient will be getting 2 units of blood ordered to the emergency department. Patient be admitted to the hospital. I did discuss leg with Dr. Grace he is accepted this patient for admission. He request reconsult GI. Medical Records: Attestation: I reviewed the patient's medical records. Lab Data: Attestation: I reviewed the patient's lab results. Labs: Lab Results 05/20/21 05/20/21 05/20/21 14:52 14:52 14:52 WBC 7.8 10^3/uL 10^3/ uL (4.0-10.0) RBC 2.50 10^6/uL L 10 ^6/uL (4.1-5.3) Hgb 4.5 g/dL L* g/dL (11.5-15.3) Hct 17.6 % L* % (37.0-47.0) MCV 70.4 fl L fl (81-99) MCH 18.0 pg L pg (28.0-34.0) MCHC 25.6 g/dL L g/dL (30.0-36.0) RDW 21.7 % H % (12.1-15.1) Plt Count 329 10^3/cmm 10^3 /cmm (130-400) MPV 10.7 fL H fL (7.4-10.4) Neut % (Auto) 71.4 % % Lymph % (Auto) 19.3 % % [place] % (Auto) 8.8 % % Eos % (Auto) 0.0 % % Baso % (Auto) 0.1 % % Neut # (Auto) 5.54 10^3/uL 10^3 /uL (1.8-7.7) Lymph # (Auto) 1.5 10^3/uL 10^3/ uL (0.8-4.8) [place] # (Auto) 0.7 10^3/uL 10^3/ uL (0.2-0.9) Eos # (Auto) 0.0 10^3/uL 10^3/ uL (0.0-0.8) Baso # (Auto) 0.0 10^3/uL 10^3/ uL (0.0-0.1) Nucleated RBC % (a uto) 1.2 % % Nucleated RBCs # 0.1 /100WBC /100W BC PT 15.90 SECONDS H S ECONDS (12.1-14.9) INR 1.23 H (0.8-1.2) APTT 28.4 SECONDS SECO NDS (23.9-36.7) Sodium 139 mmol/L mmol/L (136-145) Potassium 3.4 mmol/L L mmol /L (3.5-5.1) Chloride 98 mmol/L mmol/L (98-107) Carbon Dioxide 29 mmol/L mmol/L (22-29) Anion Gap 15.4 (5-19) BUN 16 mg/dL mg/dL (8-23) Creatinine 0.8 mg/dL mg/dL (0.5-0.9) GFR Calculation Not Reportable Glucose 109 mg/dL mg/dL (65-115) Calculated Osmolal ity 290 mOsm/kg mOsm/ kg (285-295) Calcium 8.3 mg/dL L mg/dL (8.5-10.5) Total Bilirubin 0.3 mg/dL mg/dL (0.15-1.2) AST 16 U/L U/L (0-32) ALT 13 U/L U/L (0-33) Alkaline Phosphata se 87 IU/L IU/L (35-105) Troponin T Baselin e NT-Pro-B Natriuret Pep 4841 pg/mL H pg/m L (0-450) Total Protein 5.2 g/dL L g/dL (6.6-8.7) Albumin 3.4 g/dL L g/dL (3.5-5.2) Globulin 1.8 g/dL g/dL (1.3-4.6) 05/20/21 14:52 WBC RBC Hgb Hct MCV MCH MCHC RDW Plt Count MPV Neut % (Auto) Lymph % (Auto) [place] % (Auto) Eos % (Auto) Baso % (Auto) Neut # (Auto) Lymph # (Auto) [place] # (Auto) Eos # (Auto) Baso # (Auto) Nucleated RBC % (a uto) Nucleated RBCs # PT INR APTT Sodium Potassium Chloride Carbon Dioxide Anion Gap BUN Creatinine GFR Calculation Glucose Calculated Osmolal ity Calcium Total Bilirubin AST ALT Alkaline Phosphata se Troponin T Baselin e 45 ng/L H ng/L (0-10) NT-Pro-B Natriuret Pep Total Protein Albumin Globulin EKG Data^: EKG 1: Attestation: I personally reviewed and interpreted this EKG as follows: EKG interpretation date: 05/20/21 EKG interpretation time: 15:11 Prior EKG tracings: available for review Interpretation: Atrial fibrillation heart rate 81 right ventricular conduction delay left ventricular hypertrophy nonspecific EKG changes. Discharge Plan Discharge Patient Disposition: Admitted As Inpatient Clinical Impression: Acute blood loss anemia, Weakness, Complaint of melena Condition: Stable Coding Level of Care Code ED Distribution Dispatcher for Chg Fwd Exam Comprehensive
[2021-05-20 15:17] LABS: Basophils % 0.1 %; Lymphocytes # 1.5 10^3/uL (0.8-4.8); Lymphocytes % 19.3 %; Mean Corpuscular HGB Conc 25.6 g/dL (30.0-36.0); Mean Corpuscular Volume 70.4 fl (81-99); Mean Platelet Volume 10.7 fL (7.4-10.4); Monocytes # 0.7 10^3/uL (0.2-0.9); Monocytes % 8.8 %; Neutrophils # 5.54 10^3/uL (1.8-7.7); Neutrophils % 71.4 %; Nucleated Red Blood Cells # 0.1 /100WBC; Nucleated Red Blood Cells % 1.2 %; Platelet Count 329 10^3/cmm (130-400); Red Cell Distribution Width 21.7 % (12.1-15.1); White Blood Count 7.8 10^3/uL (4.0-10.0)
[2021-05-20 15:25] LABS: INR 1.23 (0.8-1.2); Partial Thromboplastin Time 28.4 SECONDS (23.9-36.7)
[2021-05-20 15:31] LABS: Troponin(5th) Baseline 45 ng/L (0-10)
--- NOTE | 2021-05-20 15:33 | PC.PHAR ---
PT STATES SHE TAKES CARE OF HER OWN MEDICATIONS-PT STATES SHE IS TAKING 70MG DAILY OF LASIX PT STATES SHE TAKES A 40MG TAB AND 20MG ONE AND ONE-HALF TAB-EXT MED HISTORY SHOWS 40MG DAILY LAST FILLED ON 02/20/21 90D/S AND 20MG DAILY LAST FILLED ON 04/09/21 90D/S-NOTES ARE MADE IN THE PHARMACY COMMENTS
[2021-05-20 15:35] LABS: Hematocrit 17.6 % (37.0-47.0); Hemoglobin 4.5 g/dL (11.5-15.3)
[2021-05-20 15:38] LABS: Alanine Aminotransferase 13 U/L (0-33); Albumin Level 3.4 g/dL (3.5-5.2); Alkaline Phosphatase 87 IU/L (35-105); Anion Gap 15.4 (5-19); Aspartate Amino Transferase 16 U/L (0-32); Blood Urea Nitrogen 16 mg/dL (8-23); Calcium 8.3 mg/dL (8.5-10.5); Carbon Dioxide 29 mmol/L (22-29); Chloride 98 mmol/L (98-107); Creatinine Clr Calc Pharmacy 44.4542; Globulin 1.8 g/dL (1.3-4.6); Glucose 109 mg/dL (65-115); NT Pro B Type Natriuretic Pept 4841 pg/mL (0-450); Osmolality Calculated 290 mOsm/kg (285-295); Potassium 3.4 mmol/L (3.5-5.1); Sodium 139 mmol/L (136-145); Total Bilirubin 0.3 mg/dL (0.15-1.2); Total Protein 5.2 g/dL (6.6-8.7)
[2021-05-20] MEDS: pantoprazole 40 mg SDV IVP (16:20)
[2021-05-20] MEDS: sodium chloride 0.9% 500 ML IV (16:20)
--- NOTE | 2021-05-20 16:44 | PM.HP ---
Providers/Chief Complaint Admitting Physician: Reagan Larios MD Primary Care Provider: MEENU Blum Chief Complaint: WEAKNESS History of Present Illness Sneha Sanchez is a 85 year old female hospital with chief complaint of weakness and lethargy. Patient lives alone and able to take care of her daily activities independently. Her daughter checks on her frequently. Today she was surprised when her mother called her for assistance. EMS was called when she noticed that her mother is not able to get up and carry on daily activities on her own which is a totally new change for her. No active strokelike findings were noted. Patient is not complaining of active chest pain however endorsing shortness of breath on minimal activities. She has been noticing dark-colored stools for quite some time stating it started when Lasix was initiated by Dr. Carrasco. She has been on aspirin for quite some time as well. No previous endoscopies or colonoscopies. Diagnostics in the ER revealed severe anemia hemoglobin less than 5, 2 units PRBC requested, Dr. Monique consulted, She will be kept on clear liquid diet, daughter at the bedside, who is her DPOA, stated DNR, DNI status Review of Systems Const: Reports: body aches, change in weight and malaise; Denies: chills Eyes: Denies: change in vision ENMT: Denies: throat pain Card: Reports: pre-syncope and dyspnea on exertion; Denies: chest pain Resp: Reports: dyspnea GI: Reports: melena; Denies: abdominal pain : Denies: flank pain Musc: Denies: neck pain Skin/Breast: Denies: rash Neuro: Denies: headache(s) Psych: Reports: anxiety Endo: Denies: polyuria Andrew/Lymph: Denies: easy bruising All/Imm: Denies: urticaria Medications/Allergies Home Medications Medication Instructions Recorded Confirmed Last Taken Type aspirin 81 mg tablet,delayed 81 mg PO QPM 09/22/19 05/20/21 11/28/19 History release cholecalciferol (vitamin D3) 50 2,000 unit PO QAM 09/22/19 05/20/21 05/20/21 History mcg (2,000 unit) tablet multivitamin with min 1 tab PO QAM 09/22/19 05/20/21 05/20/21 History no.36-iron,carbonyl-FA 16 mg iron-0.38 mg tablet Biofreeze Roll-On 1 applic TOPICAL BID PRN 11/29/19 05/20/21 Unknown History albuterol sulfate 90 mcg/actuation 3 puff INHALATION BID PRN #3 units 03/06/21 05/20/21 Unknown Rx aerosol inhaler acetaminophen [Tylenol Extra 500 mg PO BID@08,17 05/20/21 05/20/21 05/20/21 History Strength] diltiazem HCl 90 mg PO BID@0830,202905/20/21 05/20/21 05/20/21 History furosemide 30 mg PO DAILY@05/20/21 05/20/21 05/19/21 History furosemide 40 mg PO DAILY@05/20/21 05/20/21 05/19/21 History potassium chloride 30 meq PO DAILY@1230 05/20/21 05/20/21 05/19/21 History Allergies Allergy/AdvReac Type Severity Reaction Status Date / Time Penicillins Allergy Mild unknown Verified 05/20/21 15:33 clotrimazole Allergy Unknown unknown Verified 05/20/21 15:33 PFSH Acute PFSH: Medical History (Updated 05/20/21 @ 17:56 by Reagan Larios MD) Acute on chronic diastolic (congestive) heart failure Asymptomatic carotid artery stenosis Carotid artery aneurysm CHF (congestive heart failure) COPD (chronic obstructive pulmonary disease) DDD (degenerative disc disease) Essential hypertension Family history of colon cancer Hyperlipidemia Leg swelling Mild aortic valve stenosis Vitamin D deficiency Surgical History History of section, classical Hx of adenoidectomy Hx of appendectomy Hx of tonsillectomy Family History Mother CAD (coronary artery disease) Diabetes Father Cancer Colon cancer Other Hypertension Hypothyroid Denies family history of Clotting disorder Dementia Chronic kidney disease (CKD) Suicide Anesthesia complication Bleeding disorder Lung disease Stroke Social History Alcohol intake: never Vitals/I&O/Wt Last Vital Signs Temp 98.2 F 05/20/21 15:06 Pulse 77 05/20/21 16:25 Resp 20 H 05/20/21 16:25 BP 114/58 05/20/21 16:25 Pulse Ox 91 05/20/21 16:25 Weight last 48 hrs Weight 53.524 kg Physical Exam Narrative: EXAM NARRATIVE: Elderly female currently hemodynamically stable S1, S2 with systolic murmur No active signs of murmur Pallor conjunctive a Nontender abdomen Lower extremity no severe edema EOMI, PERRLA No neurological deficit No joint swelling Dry mucous membranes Awake alert oriented x3 GCS 15 No audible stridor or wheezing saturating well on room air Data : 05/20/21 14:52 05/20/21 14:52 A&P Assessment and plan (1) Anemia: Status: Acute (2) Acute blood loss anemia: Status: Acute (3) Complaint of melena: Status: Acute Additional A&P Information Acute blood loss anemia, microcytic anemia Melanotic stools Upper GI bleed Critical diet Protonix [address] Monique consulted Hemodynamically stable Requested to unit PRBC Iron studies No previous history of GI ulcers or bleeding however family history positive for colon cancer Not a candidate for DVT prophylaxis SCDs for DVT DNR/DNI Daughter at the bedside She is her DPOA Systolic murmur noted with history of aortic valve stenosis, diastolic congestive heart failure without acute exacerbation Attestations Medical Necessity Statement*: Anticipating discharge within 48 hours Time Spent in Patient Care: Greater than 35 minutes Coding Level of Care Code Acute Campus Recruiting Coordinator for Chg Fwd Diagnoses Anemia D64.9 Acute blood loss anemia D62 Complaint of melena K92.1
--- NOTE | 2021-05-20 17:00 | PC.NURSE ---
Admit Note Patient admitted to [facility] room 111-1from ER via [place]. Covering service notified. Patient presents with low blood count and weakness. Orders reviewed & will continue to monitor. Patient and/or telephone service representative oriented to environment, equipment, and informed of the following as found in the admission booklet: patient rights & responsibilities, visitor policy, hand and respiratory hygiene practice. Other education includes: new medications and plan of care. Patient and/or telephone service representative verbalized understanding.
--- NOTE | 2021-05-20 17:00 | PM.CONSULT ---
Providers/Reason For Consult Consulting Physician/Specialty*: General Surgery Esteban Monique MD Reason for Consult*: Anemia, dark stools. Attending Physician: Reagan Larios MD Primary Care Provider: MEENU Blum History of Present Illness History of Present Illness Sneha Sanchez is a 85 year old female who was admitted today with severe anemia after presenting with worsening generalized weakness and dyspnea. She says that for the last month she has been having some loose, dark stool and has been getting weaker at home. Her hemoglobin was found to be 4.5 today after being 13?15 a little over a year ago. She says all of these progressive symptoms started around the same time she was put on a higher dose of Lasix for congestive heart failure. She denies any abdominal pain, nausea, vomiting, etc. She has not seen any blood in her stool. She denies any regular NSAID use other than for a daily baby aspirin, but does take Tylenol as needed. She has no known history of peptic ulcer disease or colon issues, but admits that she has never had endoscopy despite her father passing away with colon cancer. She says before a month ago her bowel habits were normal for her. Review of Systems General: Reports: 10 or more systems reviewed and unremarkable except in HPI and below Const: Denies: fever(s) Resp: Reports: dyspnea GI: Reports: diarrhea ( Dark in color); Denies: abdominal pain, vomiting or hematochezia Skin/Breast: Reports: breast mass ( I do not want anything done about it; it's been there for 2 years ) Meds/Allergies Home Medications and Allergies Home Medications Medication Instructions Recorded Confirmed Last Taken Type aspirin 81 mg tablet,delayed 81 mg PO QPM 09/22/19 05/20/21 11/28/19 History release cholecalciferol (vitamin D3) 50 2,000 unit PO QAM 09/22/19 05/20/21 05/20/21 History mcg (2,000 unit) tablet multivitamin with min 1 tab PO QAM 09/22/19 05/20/21 05/20/21 History no.36-iron,carbonyl-FA 16 mg iron-0.38 mg tablet Biofreeze Roll-On 1 applic TOPICAL BID PRN 11/29/19 05/20/21 Unknown History albuterol sulfate 90 mcg/actuation 3 puff INHALATION BID PRN #3 units 03/06/21 05/20/21 Unknown Rx aerosol inhaler acetaminophen [Tylenol Extra 500 mg PO BID@08,17 05/20/21 05/20/21 05/20/21 History Strength] diltiazem HCl 90 mg PO BID@0830,202905/20/21 05/20/21 05/20/21 History furosemide 30 mg PO DAILY@13 05/20/21 05/20/21 05/19/21 History furosemide 40 mg PO DAILY@13 05/20/21 05/20/21 05/19/21 History potassium chloride 30 meq PO DAILY@1230 05/20/21 05/20/21 05/19/21 History Allergies Allergy/AdvReac Type Severity Reaction Status Date / Time Penicillins Allergy Mild unknown Verified 05/20/21 15:33 clotrimazole Allergy Unknown unknown Verified 05/20/21 15:33 PFSH Acute PFSH: Medical History (Updated 05/20/21 @ 17:05 by Esteban Monique MD) CHF (congestive heart failure) COPD (chronic obstructive pulmonary disease) DDD (degenerative disc disease) Essential hypertension Hyperlipidemia Vitamin D deficiency Surgical History History of section, classical Hx of adenoidectomy Hx of appendectomy Hx of tonsillectomy Family History (Updated 05/20/21 @ 17:04 by Esteban Monique MD) Mother CAD (coronary artery disease) Diabetes Father Cancer Colon cancer Other Hypertension Hypothyroid Denies family history of Clotting disorder Dementia Chronic kidney disease (CKD) Suicide Anesthesia complication Bleeding disorder Lung disease Stroke Social History Alcohol intake: never Vitals/I&O/Wt Last Vital Signs Temp 98.2 F 05/20/21 15:06 Pulse 77 05/20/21 16:25 Resp 20 H 05/20/21 16:25 BP 114/58 05/20/21 16:25 Pulse Ox 91 05/20/21 16:25 Weight last 48 hrs Weight 118 lb Physical Exam Narrative: EXAM NARRATIVE: The patient was encountered in her hospital room just after arrival. She does not appear to be in any distress. The pupils seem equal. No carotid bruits are heard. The lungs are clear anteriorly. The heart seems regular. The abdomen is soft and does not exhibit any significant tenderness. No obvious masses are palpated. The extremities reveal no edema. Neurologically the patient appears to be grossly intact. A&P Assessment and plan (1) Anemia: This may be more of a subacute problem as it has probably been getting worse over the past month. The patient is going to be transfused today and will be kept on a proton pump inhibitor. I told her I would discuss endoscopy with her as early as tomorrow. She does not seem terribly interested in having a lot of diagnostic studies done, but I might be able to at least talk her into an EGD (see discussion below). Status: Acute (2) Complaint of melena: The patient stools have been dark for a month or perhaps even a little bit more. Status: Acute (3) Family history of colon cancer: The patient says that she does not want anything aggressive done to evaluate her colon. If I have colon cancer I do not want anything done about it, anyway. I will at least check a CEA level given her family history. Status: Acute Consult Attestations Medical Necessity Statement: See admitting service's notation. Coding Level of Care Code Acute Burial Needs Salesperson for Tash [employer]on Diagnoses Anemia D64.9 Complaint of melena K92.1 Family history of colon cancer Z80.0
--- NOTE | 2021-05-20 17:06 | ECG_ITS ---
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 Measurements Intervals [place] Rate: 63 P: [place]: QRS: -48 QRSD: 123 T: 76 QT: 440 QTc: 451 Interpretive Statements Multifocal atrial rhythm with positive PAC pauses LEFT ANTERIOR FASCICULAR BLOCK [QRS AXIS <= -45, QR IN I, RS IN II] SEPTAL MYOCARDIAL INFARCTION , PROBABLY OLD [40+ ms Q WAVE IN V1/V2] Compared to ECG 05/20/2021 15:11:12 Left anterior fascicular block now present Ventricular premature complex(es) no longer present Aberrant conduction of supraventricular beat(s) no longer present Myocardial infarct finding still present Electronically Signed On 05-22-2021 23:38:43 CDT by Maria E Carrasco M.D. [id number]
[2021-05-20] MEDS: sodium chloride 0.9% 100 mL Bag 50 ML IV ×2 (17:50→20:46)
[2021-05-20 18:14] LABS: Troponin 5 2HR 35.93 ng/L (0-10)
[2021-05-20 18:15] LABS: Troponin 5 2HR Delta -9.07 ABS# (0-10)
[2021-05-20 21:04] LABS: Troponin 5 6HR 36.14 ng/L (0-10)
--- NOTE | 2021-05-20 21:06 | ECG_ITS ---
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 Measurements Intervals [place] Rate: 64 P: 90 [place]: 189 QRS: -45 QRSD: 126 T: 89 QT: 421 QTc: 437 Interpretive Statements SINUS RHYTHM WITH OCCASIONAL SUPRAVENTRICULAR PREMATURE COMPLEXES LEFT ANTERIOR FASCICULAR BLOCK [QRS AXIS <= -45, QR IN I, RS IN II] SEPTAL MYOCARDIAL INFARCTION , PROBABLY OLD [40+ ms Q WAVE IN V1/V2] Compared to ECG 05/20/2021 18:27:13 Atrial fibrillation no longer present Myocardial infarct finding still present Electronically Signed On 05-22-2021 23:40:24 CDT by Maria E Carrasco M.D. [id number]
[2021-05-20 21:07] LABS: Troponin 5 6HR Delta -8.86 ng/L (0-12)
[2021-05-20 21:50] LABS: Carcinoembryonic Antigen 9.8 ng/mL (0.0-4.7)
[2021-05-21] VITALS (61 sets, daily range): BP systolic 90–154; BP diastolic 31–86; PULSE 55–93; RESP 0–35; TEMP 36.8–37; O2SAT 79–100
[2021-05-21 03:52] LABS: Basophils % 0.3 %; Eosinophils # 0.1 10^3/uL (0.0-0.8); Eosinophils % 1.1 %; Hematocrit 23.2 % (37.0-47.0); Hemoglobin 6.7 g/dL (11.5-15.3); Lymphocytes # 1.5 10^3/uL (0.8-4.8); Lymphocytes % 20.3 %; Mean Corpuscular HGB Conc 28.9 g/dL (30.0-36.0); Mean Corpuscular Hemoglobin 22.3 pg (28.0-34.0); Mean Corpuscular Volume 77.1 fl (81-99); Mean Platelet Volume 10.9 fL (7.4-10.4); Monocytes # 0.8 10^3/uL (0.2-0.9); Monocytes % 10.4 %; Neutrophils # 5.07 10^3/uL (1.8-7.7); Neutrophils % 67.6 %; Nucleated Red Blood Cells # 0.1 /100WBC; Nucleated Red Blood Cells % 1.6 %; Platelet Count 247 10^3/cmm (130-400); Red Blood Count 3.01 10^6/uL (4.1-5.3); Red Cell Distribution Width 22.4 % (12.1-15.1); White Blood Count 7.5 10^3/uL (4.0-10.0)
[2021-05-21 04:14] LABS: Anion Gap 8.2 (5-19); Blood Urea Nitrogen 15 mg/dL (8-23); Calcium 7.6 mg/dL (8.5-10.5); Carbon Dioxide 31 mmol/L (22-29); Chloride 104 mmol/L (98-107); Creatinine Clr Calc Pharmacy 44.7594; Glucose 86 mg/dL (65-115); Osmolality Calculated 290 mOsm/kg (285-295); Potassium 3.2 mmol/L (3.5-5.1); Sodium 140 mmol/L (136-145)
[2021-05-21 07:19] LABS: Add Urine Microscopic? YES; Bilirubin Urine Neg (Negative); Blood Urine Neg (Negative); Glucose Urine UA Norm (Normal); Ketones Urine Negative (Negative); Leukocyte Esterase Urine Negative (Negative); Nitrate Urine Negative (Negative); Protein Urine Neg (Negative); Specific Gravity, Urine 1.015 (1.005-1.030); Urine Appearance SL Hazy (CLEAR); Urine Color Yellow (Yellow); Urobilinogen Urine Norm (Negative); pH Urine 5 (5-7)
[2021-05-21 07:21] LABS: Bacteria Urine 1+ /hpf; Hyaline Casts Urine 0-4 /lpf; Mucus Urine TRACE /hpf; RBC Urine 0-4 /hpf (0-2); WBC Urine 0-4 /hpf (0-5)
[2021-05-21 07:22] LABS: Add Urine Culture? No
--- NOTE | 2021-05-21 08:11 | CT_ITS ---
WS: [id number] CT ABDOMEN PELVIS TECHNIQUE: Noncontrast CT of the abdomen and contrast-enhanced CT of the abdomen and pelvis with terell nal and sagittal reformatted images. CLINICAL INFORMATION: anemia, elevated CEA, family history of colon CA COMPARISON: None. DLP: 1249.[address] scans at [facility] use at least one of these dose optimization techniques: automated e xposure control; mA and/or kV adjustment per patient size (includes targeted exams where dose is matc hed to clinical indication); or iterative reconstruction. FINDINGS: Diffuse fatty infiltration liver. Normal portal vein and splenic vein. Cholelithiasis. Normal GE junc tion. Normal spleen. Tiny bilateral pleural effusions. Patchy infiltrates in both lower lobes. Dilate d common bile duct measuring 6 to 7 mm. This can be further evaluated with MRCP. Normal pancreatic parenchymal enhancement. Right adrenal gland is normal. Left adrenal gland adenoma measuring 14 mm. Normal renal parenchymal enhancement. No hydronephrosis. Densely calcified tortuous abdominal aorta. Ectatic distal abdominal aorta measuring 2.4 x 2.2 CM. Sigmoid diverticulosis. No evidence of acute diverticulitis. No evidence of high-grade small or obstr uction. Left adnexal cyst measuring 1.5 x 2.1 CM. Grade 1 anterolisthesis L4 on L5. Degenerative disc disease throughout the lumbar spine with vacuum d isc phenomenon. Advanced degenerative changes at the pubic symphysis with a small perisymphyseal flui d collection. CT/CT abdomen pelvis wo/w [id number] IMPRESSION: 1. Cholelithiasis with dilation of the common bile duct measuring 6 to 7 mm. T his can be further evaluated with MRCP. 2. Sigmoid diverticulosis. No evidence of high-grade small or large bowel obst ruction. 3. No abdominal or pelvic lymphadenopathy. 4. Low-attenuation left ovarian cystic lesion measuring 2.1 x 1.5 cm. This can be followed up with ultrasound. 5. Tiny bilateral pleural effusions with slight patchy infiltrates in the lung bases. Correlation for pneumonitis. 6. Tortuous densely calcified abdominal aorta. Aortic ectasia measures 2.4 x 2 .1 CM. 7. No hydronephrosis in either kidney. 8. Lumbar scoliosis with advanced spondylitic changes.
[2021-05-21 08:25] LABS: Ferritin 12 ng/mL (15-150); Iron 14 ug/dL (37-145)
--- NOTE | 2021-05-21 08:42 | PC.CHAP ---
Pastoral Care Encounter/Spiritual Assessment Type of Contact [] Declined color straining bag washer visit [] Patient/Family/Request visit [] Outpatient visit [] Follow-up visit [] Physician referral [] Code/Alert [x] Routine visit [] Staff referral [] Actively dying [x] Patient sleeping [] Family support [] [] Out of room [] Palliative care [] [x] Receiving care in room [] Pre-surgical visit [] Trauma [] Long length of stay [] ICU visit [] Other: Relational/Emotional Strength [] Patient feels connected with others/family/visitors/staff [] Distress [] Loneliness/isolation [] Abandonment Spirituality of Patient [] Person of Joelle [] Attends Mormonism of their Joelle [] Believes in Prayer [] Reads Bible or Faith materials [] There are Spiritual issues to be addressed Service Person Interventions [] Prayer [] Active listening [] Non-anxious presence [] Spiritual/emotional support [] Crisis/trauma care [] Spiritual counseling [] Bereavement support [] Provided bereavement packet [] Provided Bible/devotional materials [] Provided toy/stuffed animal, coloring book to patient or family member [] Provided Communion [] Anointing/[place] [] Salvation [] Completed spiritual assessment [] Other: Impact on Illness or Injury [] Angry [] Fearful [] Anxious [] Often cries [] Exhaustion [] Unable to work [] Unable to attend quaker [] Unable to walk/stand [] Unable to read [] Unable to drive [] Unable to eat/drink [] Unable to sleep [] Unable to be with family [] Patient intubated [] Other: Summary Upon arrival in room, pt was asleep so color straining bag washer visited with room mate. When color straining bag washer left, staff were working with pt. Time spent with patient
[2021-05-21] MEDS: pantoprazole 40 mg SDV IVP ×2 (08:55→17:56)
[2021-05-21] MEDS: sodium chloride 0.9% 100 mL Bag 50 ML IV (10:25)
[2021-05-21] MEDS: iohexol 300 mg/mL 100 mL Btl IV (10:45)
--- NOTE | 2021-05-21 11:47 | P.PN_ITS ---
Subjective Subjective: Interval history: No overnight events, no active diarrhea or melanotic stools, blood pressure stable hemoglobin 6.7 we will request another unit PRBC awaiting report of CT abdomen pelvis which was requested by Dr. Monique. CEA 9.8 potassium 3.2 Calcium 7.6 She is tolerating clear liquid diet iron deficiency anemia Vitals/I&O/Wt Last Vital Signs Temp 98.6 F 05/21/21 00:00 Pulse 79 05/21/21 10:20 Resp 19 H 05/21/21 10:20 BP 128/76 05/21/21 10:20 Pulse Ox 90 05/21/21 04:00 05/20/21 05/21/21 05/21/21 22:59 06:59 14:59 Intake Total 1200 / 1200 0 / 0 Output Total 400 / 400 Balance 1200 / 1200 -400 / 800 0 / 0 Weight last 48 hrs Weight 54.431 kg Weight 53.524 kg Physical Exam Narrative: EXAM NARRATIVE: Patient was having clear liquid diet went into the room No abdominal distention or tenderness S1, S2 sinus rhythm Systolic murmur appreciated No active signs of heart failure EOMI, PERRLA No neurological deficits Clinically looks slightly dehydrated Data : 05/21/21 03:20 05/21/21 03:20 A&P Assessment and plan (1) Anemia: Status: Acute (2) Acute blood loss anemia: Status: Acute (3) Iron deficiency anemia: Status: Acute (4) Complaint of melena: Status: Acute (5) Heart murmur: Status: Acute Additional A&P Information Blood loss acute anemia Microcytic consistent with iron deficiency anemia Upper GI bleed Currently tolerating clear liquid diet Protonix 40 mg IV twice daily CT abdomen pelvis report pending with contrast She is tolerating her diet for now We will add iron supplementation We will follow up with Dr. Monique CEA 9.8 Tylenol can be given for her headache Systolic heart murmur consistent with aortic stenosis no acute decompensation DNR/DNI Clear liquid diet to be continued for now CT abdomen pelvis result IMPRESSION: 1. Cholelithiasis with dilation of the common bile duct measuring 6 to 7 mm. This can be further evaluated with MRCP. 2. Sigmoid diverticulosis. No evidence of high-grade small or large bowel obstruction. 3. No abdominal or pelvic lymphadenopathy. 4. Low-attenuation left ovarian cystic lesion measuring 2.1 x 1.5 cm. This can be followed up with ultrasound. 5. Tiny bilateral pleural effusions with slight patchy infiltrates in the lung bases. Correlation for pneumonitis. 6. Tortuous densely calcified abdominal aorta. Aortic ectasia measures 2.4 x 2.1 CM. 7. No hydronephrosis in either kidney. 8. Lumbar scoliosis with advanced spondylitic changes. 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
[2021-05-21] MEDS: iohexol 300 mg/mL 50 mL Btl IV (12:35)
[2021-05-21] MEDS: FUROsemide 20 mg Tablet PO (13:39)
[2021-05-21] MEDS: potassium chloride ER 20 mEq Tablet 40 MEQ PO (13:39)
--- NOTE | 2021-05-21 14:16 | PC.NURSE ---
spoke with Dr Larios about obtaining a CBC after blood transfusion okay to order for 3 hours post transfusion
--- NOTE | 2021-05-21 15:28 | PC.NURSE ---
patient has refused O2 use this shift O2 saturation when not moving around a whole lot patient maintains 90's after getting up to bathroom patient was Short of breath and maintaining 85 % this nurse asked patient to please place 02 for even a little while patient started to refuse however visitor at bedside convinced patient to use it for a bit patient 92% on 2 L NC
[2021-05-21 16:19] LABS: Basophils % 0.4 %; Eosinophils % 0.4 %; Hematocrit 28.1 % (37.0-47.0); Hemoglobin 8.5 g/dL (11.5-15.3); Lymphocytes # 1.8 10^3/uL (0.8-4.8); Lymphocytes % 22.8 %; Mean Corpuscular HGB Conc 30.2 g/dL (30.0-36.0); Mean Corpuscular Hemoglobin 23.7 pg (28.0-34.0); Mean Corpuscular Volume 78.5 fl (81-99); Mean Platelet Volume 10.5 fL (7.4-10.4); Monocytes # 0.9 10^3/uL (0.2-0.9); Monocytes % 11.1 %; Neutrophils # 4.97 10^3/uL (1.8-7.7); Neutrophils % 64.9 %; Nucleated Red Blood Cells # 0.1 /100WBC; Nucleated Red Blood Cells % 1.3 %; Platelet Count 230 10^3/cmm (130-400); Red Blood Count 3.58 10^6/uL (4.1-5.3); Red Cell Distribution Width 22.1 % (12.1-15.1); White Blood Count 7.7 10^3/uL (4.0-10.0)
--- NOTE | 2021-05-21 16:37 | P.PN_ITS ---
Subjective Subjective: Interval history: The patient says that she thinks she is feeling a little bit better. I checked a CEA level yesterday and it was elevated. A CAT scan was performed today but did not show any obvious acute abdominal issues. She has not had any bowel movements today. I came back to discuss endoscopy with her. Vitals/I&O/Wt Last Vital Signs Temp 98.6 F 05/21/21 00:00 Pulse 64 05/21/21 14:00 Resp 5 L 05/21/21 14:00 BP 125/74 05/21/21 14:00 Pulse Ox 90 05/21/21 14:00 05/21/21 05/21/21 05/21/21 06:59 14:59 22:59 Intake Total 350 / 350 Output Total 400 / 400 Balance -400 / 800 350 / 350 Weight last 48 hrs Weight 120 lb Weight 118 lb Physical Exam 2 Narrative: EXAM NARRATIVE: Abdomen remains soft. Data : 05/21/21 16:07 05/21/21 03:20 CT Abd/Pel: Radiologist's impression: CT abdomen/pelvis 05/21/2021 IMPRESSION: 1. Cholelithiasis with dilation of the common bile duct measuring 6 to 7 mm. This can be further evaluated with MRCP. 2. Sigmoid diverticulosis. No evidence of high-grade small or large bowel obstruction. 3. No abdominal or pelvic lymphadenopathy. 4. Low-attenuation left ovarian cystic lesion measuring 2.1 x 1.5 cm. This can be followed up with ultrasound. 5. Tiny bilateral pleural effusions with slight patchy infiltrates in the lung bases. Correlation for pneumonitis. 6. Tortuous densely calcified abdominal aorta. Aortic ectasia measures 2.4 x 2.1 CM. 7. No hydronephrosis in either kidney. 8. Lumbar scoliosis with advanced spondylitic changes. A&P Assessment and plan (1) Anemia: I have discussed an EGD and a colonoscopy with the patient. Given the new findings of the elevated CEA, the patient seems agreeable to having both an EGD and colonoscopy done tomorrow. We discussed her bowel prep and the risks of endoscopy including bleeding, perforation, etc. She seems understand and is agreeable to going through a bowel prep today and having upper and lower endoscopy tomorrow. Status: Acute (2) Complaint of melena: Status: Acute (3) Elevated CEA: Status: Acute (4) Family history of colon cancer: Status: Acute Attestations Medical Necessity Statement*: See admitting service's notation. 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
[2021-05-21] MEDS: magnesium citrate Btl 296 mL 592 ML PO (17:55)
[2021-05-21] MEDS: iron complex forte Capsule 1 EACH PO (19:11)
--- NOTE | 2021-05-21 19:18 | PC.NURSE ---
Shift Note Frequent safety and comfort rounds continue. Orders and/or nursing care completed as indicated. Patient monitored for response to intervention and treatment(s). Education provided includes Plan of care Diet pre procedure prep. Patient and/or registered representative verbalized understanding. Will continue to monitor.
--- NOTE | 2021-05-21 19:39 | PC.NURSE ---
Received report from IAN Partida. Patient resting in bed watching TV. Patient has mag citrate at bedside with first bottle almost complete and patient reports I will be starting this second bottle soon. Discussed plan for EGD and colonoscopy for tomorrow. Patient verbalized complete understanding. Patient reports chronic pain to back and is requestig Tylenol at bedtime. No other distress observed.
[2021-05-21] MEDS: acetaminophen 325 mg Tablet PO (20:53)
--- NOTE | 2021-05-21 20:59 | PC.NURSE ---
Patient is supposed to have an EGD/colonoscopy tomorrow. Patient has completed first bottle of mag citrate at this time. Patient says she cannot get the 2nd bottle done. She is choking on everything she put in and her throat is hurting. I gave Tylenol as ordered and she had problems with swallowing. She reports that Tylenol did go down however this RN observed patient having great difficulty and patient choking on water. Patient refusing any other medications at this time due to inability to swallow.
[2021-05-22] VITALS (9 sets, daily range): BP systolic 106–145; BP diastolic 51–67; PULSE 49–76; RESP 13–22; TEMP 36.2–37.1; O2SAT 90–100
[2021-05-22 04:53] LABS: Basophils % 0.3 %; Eosinophils # 0.1 10^3/uL (0.0-0.8); Eosinophils % 1.3 %; Hematocrit 30.9 % (37.0-47.0); Lymphocytes # 1.3 10^3/uL (0.8-4.8); Lymphocytes % 15.7 %; Mean Corpuscular HGB Conc 29.1 g/dL (30.0-36.0); Mean Corpuscular Hemoglobin 23.9 pg (28.0-34.0); Mean Platelet Volume 10.5 fL (7.4-10.4); Monocytes # 0.9 10^3/uL (0.2-0.9); Monocytes % 10.7 %; Neutrophils # 5.72 10^3/uL (1.8-7.7); Neutrophils % 71.6 %; Nucleated Red Blood Cells # 0.1 /100WBC; Nucleated Red Blood Cells % 1.4 %; Platelet Count 216 10^3/cmm (130-400); Red Blood Count 3.77 10^6/uL (4.1-5.3); Red Cell Distribution Width 22.4 % (12.1-15.1)
[2021-05-22 05:22] LABS: Anion Gap 10.5 (5-19); Blood Urea Nitrogen 11 mg/dL (8-23); Calcium 7.7 mg/dL (8.5-10.5); Carbon Dioxide 30 mmol/L (22-29); Chloride 103 mmol/L (98-107); Creatinine Clr Calc Pharmacy 44.7594; Glucose 83 mg/dL (65-115); Osmolality Calculated 289 mOsm/kg (285-295); Potassium 3.5 mmol/L (3.5-5.1); Sodium 140 mmol/L (136-145)
--- NOTE | 2021-05-22 06:19 | PC.NURSE ---
Shift Note Frequent safety and comfort rounds continue. Orders and/or nursing care completed as indicated. Patient monitored for response to intervention and treatment(s). Education provided includes mag citrate. Patient verbalized complete understanding. Patient continues to have problems swallowing and refuses to take anything in by mouth. Patient was unable to complete dosing of mag citrate due to her problems with swallowing. She also reports having extreme pain to throat during swallowing. Did observe patient choking on fluids and having trouble getting medications down. Received in report that the day RN attempted to crush and place in pudding and patient still had problems swallowing. She stated, I really don't care if I have my colonoscopy or not anyway. No other distresses observed. Will continue to monitor.
[2021-05-22] MEDS: FUROsemide 10 mg/mL SDV 4mL 40 MG IVP (09:27)
[2021-05-22] MEDS: pantoprazole 40 mg SDV IVP ×2 (09:28→17:44)
[2021-05-22] MEDS: iron complex forte Capsule 1 EACH PO ×2 (09:28→17:44)
--- NOTE | 2021-05-22 09:59 | P.PN_ITS ---
Subjective Subjective: Interval history: I received word this morning that the patient was unable to finish her bowel prep last night. She says she was able to drink 1 bottle of magnesium citrate and has had multiple liquid bowel movements since then. Vitals/I&O/Wt Last Vital Signs Temp 98.2 F 05/22/21 08:03 Pulse 65 05/22/21 08:03 Resp 18 05/22/21 08:03 BP 145/54 05/22/21 08:03 Pulse Ox 100 05/22/21 08:03 05/21/21 05/22/21 05/22/21 22:59 06:59 14:59 Intake Total 480 / 830 Output Total 500 / 500 200 / 200 Balance -20 / 330 -200 / -200 Weight last 48 hrs Weight 120 lb Weight 120 lb Weight 118 lb Physical Exam Narrative: EXAM NARRATIVE: Abdomen remains soft. Data : 05/22/21 04:36 05/22/21 04:36 Micro: Microbiology 05/21/21 22:35 Occult Blood (FIT) - Final Stool Routine Collection A&P Assessment and plan (1) Anemia: The patient was unable to do as much of a bowel prep as I would have liked, but she says her stool is very watery and I think it is at least still worth a try to make sure there are no large lesions in her colon. She is still willing to undergo the EGD, as well. Continue n.p.o. and we will attempt endoscopy later today. Status: Acute (2) Complaint of melena: Status: Acute (3) Elevated CEA: Status: Acute (4) Family history of colon cancer: Status: Acute Attestations Medical Necessity Statement*: See admitting service's notation. 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
--- NOTE | 2021-05-22 10:15 | XR_ITS ---
WS: [id number] Portable AP upright chest, 05/22/2021 Clinical Data: fluid overload Comparison: Portable chest, 05/20/2021. Findings: There is a 2.5 cm soft tissue nodule in the left upper lobe overlying the posterior lateral aspect of the left sixth rib. There is patchy irregularity in the left lower lobe which could repres ent atelectasis and/or minimal pneumonia. The heart is normal. The aortic arch and descending aorta s how calcification and tortuosity. No pleural effusions are seen. There is no pneumothorax. Monitor le ads are on the chest wall. XR/XR chest 1V portable [id number] Impression: 1. 2.5 cm left upper lobe nodule which may represent cancer of the lung. 2. Patchy atelectasis and/or pneumonia overlying the surface of the left diaphr agm. 3. Atherosclerosis.
--- NOTE | 2021-05-22 11:38 | P.PN_ITS ---
Subjective Subjective: Interval history: Patient is requiring 5 L of oxygen, noticed lung crackles, requested stat x-ray which showed pulmonary nodule with concern for malignancy, she did receive IV Lasix today Could not finish her bowel prep overnight She will stay n.p.o. for possible EGD today Patient is adamant that she would now like to go for any kind of investigation for her malignancy, she knows she has a breast lump, never had previous colonoscopies or EGDs, do not want to undergo histopathological diagnosis or treatment for her cancer Vitals/I&O/Wt Last Vital Signs Temp 98.2 F 05/22/21 11:30 Pulse 49 L 05/22/21 11:30 Resp 18 05/22/21 11:30 BP 132/63 05/22/21 11:30 Pulse Ox 100 05/22/21 11:30 05/21/21 05/22/21 05/22/21 22:59 06:59 14:59 Intake Total 480 / 830 Output Total 500 / 500 500 / 500 Balance -20 / 330 -500 / -500 Weight last 48 hrs Weight 54.431 kg Weight 54.431 kg Weight 53.524 kg Physical Exam Narrative: EXAM NARRATIVE: Patient this morning was endorsing mild shortness of breath Requested chest x-ray No neurological deficits Clinically does look dehydrated Bilateral breath sounds with rhonchi or crackles at the bases Patient is using accessory muscles as well today On 5 L nasal cannula No active chest pain Abdomen soft bowel sounds present Lower extremity no edema She is awake and alert oriented x3 GCS 15 Data : 05/22/21 04:36 05/22/21 04:36 Micro: Microbiology 05/21/21 22:35 Occult Blood (FIT) - Final Stool Routine Collection A&P Assessment and plan (1) Family history of colon cancer: Status: Acute (2) Elevated CEA: Status: Acute (3) Iron deficiency anemia: Status: Acute (4) Anemia: Status: Acute (5) Acute blood loss anemia: Status: Acute (6) Complaint of melena: Status: Acute (7) Pulmonary nodule: Status: Acute (8) Acute respiratory failure with hypoxia: Status: Acute Additional A&P Information Acute microcytic anemia Iron deficiency anemia Blood loss anemia Awaiting EGD today Current use bowel prep overnight Left pulmonary nodule, patient refuses any diagnostic work-up Will request D-dimer today she is requiring 5 L nasal cannula She is not a candidate for anticoagulation, will get D-dimer if it is high I w ould request CTA Follow-up after her EGD Bradycardia noted on telemetry No active symptoms No chest pain She received 40 mg IV Lasix today, continue Protonix 40 mg IV twice daily Hemoglobin stable after 3 units PRBC We will follow up with Dr. 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
[2021-05-22 12:17] LABS: D Dimer 4.81 ug/mIFEU (0-0.59)
[2021-05-22] MEDS: sodium chloride 0.9% 1,000 ML 30 ML IV (13:23)
--- NOTE | 2021-05-22 13:46 | P.ANESASSM_ITS ---
Pre-Anesthetic Assessment Pre-Anesthetic Assessment: Height/Weight: Height 1.6 m Weight 54.431 kg Temp Pulse Resp BP Pulse Ox 97.3 F L 59 L 20 H 133/52 90 05/22/21 13:00 05/22/21 13:00 05/22/21 13:00 05/22/21 13:00 05/22/21 13:00 Proposed Procedure: Operation Date: 05/22/21 13:15 Proposed Procedures p EGD(Not Applicable) - Esteban Monique MD s Colonoscopy(Not Applicable) - Esteban Monique MD Was Beta Luis Carlos taken within 24 hours: N/A Social: Social History: Tobacco and No alcohol Exam: Pre-Anes Outpt Exam: alert, oriented x 3 and regular rate & rhythm Airway: Submandibular: WNL Cervical ROM: WNL MP: 2 Dentition: False Pulmonary: Pulmonary: COPD CV/HEM: CV/HEM: Anemia, CHF (EF 50%), HTN and Murmur Comments: Mod , mild MS Metabolic: Metabolic: Hyperlipidemia Musc/skel: Musc/skel: Lower Back Pain and Weakness Anesthetic Plan: ASA status: 3 Anesthesia: MAC Risk of > 500 ml blood loss (7ml/kg in children): No Meds/Allergies Current Medications: Current Medications Generic Name Dose Route Start Last Admin Trade Name Freq PRN Reason Stop Dose Admin Acetaminophen 325 - 650 mg 05/21/21 11:45 05/21/21 20:53 Acetaminophen 32 5 Mg Tablet PO 325 mg Q4H PRN Administration MILD PAIN OR INCR EASE TEMP Folic Acid/Iron/Vi tamin B12 1 each 05/21/21 18:00 05/22/21 09:28 Iron Complex For te Capsule PO 1 each BIDWM CLARISA Administration Furosemide 20 mg 05/21/21 13:00 05/21/21 13:39 Furosemide 20 Mg Tablet PO 20 mg DAILY@13 CLARISA Administration Sodium Chloride 1,000 mls @ 30 ml s/hr 05/22/21 13:15 05/22/21 13:23 Sodium Chloride 0.9% IV 05/23/21 13:14 30 mls/hr .Q24H CLARISA Administration Pantoprazole Sodiu m 40 mg 05/21/21 09:00 05/22/21 09:28 Pantoprazole 40 Mg Sdv IVP 40 mg BID CLARISA Administration PFSH Anesthesia PFSH: Medical History (Updated 05/22/21 @ 11:41 by Reagan Larios MD) Acute on chronic diastolic (congestive) heart failure Asymptomatic carotid artery stenosis Carotid artery aneurysm CHF (congestive heart failure) COPD (chronic obstructive pulmonary disease) DDD (degenerative disc disease) Essential hypertension Family history of colon cancer Hyperlipidemia Leg swelling Mild aortic valve stenosis Vitamin D deficiency Surgical History History of section, classical Hx of adenoidectomy Hx of appendectomy Hx of tonsillectomy Family History Mother CAD (coronary artery disease) Diabetes Father Cancer Colon cancer Other Hypertension Hypothyroid Denies family history of Clotting disorder Dementia Chronic kidney disease (CKD) Suicide Anesthesia complication Bleeding disorder Lung disease Stroke Social History Alcohol intake: never Data Anesthesia CBC & Chem 7: 05/22/21 04:36 05/22/21 04:36 Other Labs: Laboratory Results - last 48 hr 05/20/21 05/20/21 05/20/21 14:52 14:52 14:52 WBC 7.8 RBC 2.50 L Hgb 4.5 L* Hct 17.6 L* MCV 70.4 L MCH 18.0 L MCHC 25.6 L RDW 21.7 H Plt Count 329 MPV 10.7 H Neut % (Auto) 71.4 Lymph % (Auto) 19.3 [place] % (Auto) 8.8 Eos % (Auto) 0.0 Baso % (Auto) 0.1 Neut # (Auto) 5.54 Lymph # (Auto) 1.5 [place] # (Auto) 0.7 Eos # (Auto) 0.0 Baso # (Auto) 0.0 Nucleated RBC % (auto) 1.2 Nucleated RBCs # 0.1 PT 15.90 H INR 1.23 H APTT 28.4 D-Dimer Sodium 139 Potassium 3.4 L Chloride 98 Carbon Dioxide 29 Anion Gap 15.4 BUN 16 Creatinine 0.8 GFR Calculation Not Reportable Glucose 109 Calculated Osmolality 290 Calcium 8.3 L Iron Ferritin Total Bilirubin 0.3 AST 16 ALT 13 Alkaline Phosphatase 87 Troponin T Baseline Troponin T 120 Minute Delta Troponin T Troponin T Hi Sens 6Hr Troponin T Hi Sens 6Hr Delta NT-Pro-B Natriuret Pep 4841 H Total Protein 5.2 L Albumin 3.4 L Globulin 1.8 Carcinoembryonic Ag Urine Color Urine Appearance Urine pH Ur Specific [place] Urine Protein Urine Glucose (UA) Urine Ketones Urine Blood Urine Nitrate Urine Bilirubin Urine Urobilinogen Ur Leukocyte Esterase Urine RBC Urine WBC Ur Squamous Epith Cells Amorphous Sediment Urine Bacteria Hyaline Casts Urine Mucus Blood Type Rho(D) Type Antibody Screen Crossmatch 05/20/21 05/20/21 05/20/21 14:52 14:52 15:20 WBC RBC Hgb Hct MCV MCH MCHC RDW Plt Count MPV Neut % (Auto) Lymph % (Auto) [place] % (Auto) Eos % (Auto) Baso % (Auto) Neut # (Auto) Lymph # (Auto) [place] # (Auto) Eos # (Auto) Baso # (Auto) Nucleated RBC % (auto) Nucleated RBCs # PT INR APTT D-Dimer Sodium Potassium Chloride Carbon Dioxide Anion Gap BUN Creatinine GFR Calculation Glucose Calculated Osmolality Calcium Iron 14 L Ferritin 12 L Total Bilirubin AST ALT Alkaline Phosphatase Troponin T Baseline 45 H Troponin T 120 Minute Delta Troponin T Troponin T Hi Sens 6Hr Troponin T Hi Sens 6Hr Delta NT-Pro-B Natriuret Pep Total Protein Albumin Globulin Carcinoembryonic Ag Urine Color Urine Appearance Urine pH Ur Specific [place] Urine Protein Urine Glucose (UA) Urine Ketones Urine Blood Urine Nitrate Urine Bilirubin Urine Urobilinogen Ur Leukocyte Esterase Urine RBC Urine WBC Ur Squamous Epith Cells Amorphous Sediment Urine Bacteria Hyaline Casts Urine Mucus Blood Type A Positive Rho(D) Type Positive Antibody Screen Negative Crossmatch See Detail 05/20/21 05/20/21 05/20/21 17:35 17:35 20:42 WBC RBC Hgb Hct MCV MCH MCHC RDW Plt Count MPV Neut % (Auto) Lymph % (Auto) [place] % (Auto) Eos % (Auto) Baso % (Auto) Neut # (Auto) Lymph # (Auto) [place] # (Auto) Eos # (Auto) Baso # (Auto) Nucleated RBC % (auto) Nucleated RBCs # PT INR APTT D-Dimer Sodium Potassium Chloride Carbon Dioxide Anion Gap BUN Creatinine GFR Calculation Glucose Calculated Osmolality Calcium Iron Ferritin Total Bilirubin AST ALT Alkaline Phosphatase Troponin T Baseline Troponin T 120 Minute 35.93 H Delta Troponin T -9.07 L Troponin T Hi Sens 6Hr 36.14 H Troponin T Hi Sens 6Hr Delta -8.86 L NT-Pro-B Natriuret Pep Total Protein Albumin Globulin Carcinoembryonic Ag 9.8 H Urine Color Urine Appearance Urine pH Ur Specific [place] Urine Protein Urine Glucose (UA) Urine Ketones Urine Blood Urine Nitrate Urine Bilirubin Urine Urobilinogen Ur Leukocyte Esterase Urine RBC Urine WBC Ur Squamous Epith Cells Amorphous Sediment Urine Bacteria Hyaline Casts Urine Mucus Blood Type Rho(D) Type Antibody Screen Crossmatch 05/21/21 05/21/21 05/21/21 03:20 03:20 06:25 WBC 7.5 RBC 3.01 L Hgb 6.7 L D Hct 23.2 L D MCV 77.1 L D MCH 22.3 L D MCHC 28.9 L D RDW 22.4 H Plt Count 247 MPV 10.9 H Neut % (Auto) 67.6 Lymph % (Auto) 20.3 [place] % (Auto) 10.4 Eos % (Auto) 1.1 Baso % (Auto) 0.3 Neut # (Auto) 5.07 Lymph # (Auto) 1.5 [place] # (Auto) 0.8 Eos # (Auto) 0.1 Baso # (Auto) 0.0 Nucleated RBC % (auto) 1.6 Nucleated RBCs # 0.1 PT INR APTT D-Dimer Sodium 140 Potassium 3.2 L Chloride 104 Carbon Dioxide 31 H Anion Gap 8.2 BUN 15 Creatinine 0.6 GFR Calculation Not Reportable Glucose 86 Calculated Osmolality 290 Calcium 7.6 L Iron Ferritin Total Bilirubin AST ALT Alkaline Phosphatase Troponin T Baseline Troponin T 120 Minute Delta Troponin T Troponin T Hi Sens 6Hr Troponin T Hi Sens 6Hr Delta NT-Pro-B Natriuret Pep Total Protein Albumin Globulin Carcinoembryonic Ag Urine Color Yellow Urine Appearance Sl hazy Urine pH 5 Ur Specific [place] 1.015 Urine Protein Neg Urine Glucose (UA) Norm Urine Ketones Negative Urine Blood Neg Urine Nitrate Negative Urine Bilirubin Neg Urine Urobilinogen Norm Ur Leukocyte Esterase Negative Urine RBC 0-4 H Urine WBC 0-4 H Ur Squamous Epith Cells 5-10 H Amorphous Sediment Not Reportable Urine Bacteria 1+ H Hyaline Casts 0-4 H Urine Mucus Trace Blood Type Rho(D) Type Antibody Screen Crossmatch 05/21/21 05/22/21 05/22/21 16:07 04:36 04:36 WBC 7.7 8.0 RBC 3.58 L 3.77 L Hgb 8.5 L 9.0 L Hct 28.1 L 30.9 L MCV 78.5 L 82.0 MCH 23.7 L 23.9 L MCHC 30.2 29.1 L RDW 22.1 H 22.4 H Plt Count 230 216 MPV 10.5 H 10.5 H Neut % (Auto) 64.9 71.6 Lymph % (Auto) 22.8 15.7 [place] % (Auto) 11.1 10.7 Eos % (Auto) 0.4 1.3 Baso % (Auto) 0.4 0.3 Neut # (Auto) 4.97 5.72 Lymph # (Auto) 1.8 1.3 [place] # (Auto) 0.9 0.9 Eos # (Auto) 0.0 0.1 Baso # (Auto) 0.0 0.0 Nucleated RBC % (auto) 1.3 1.4 Nucleated RBCs # 0.1 0.1 PT INR APTT D-Dimer Sodium 140 Potassium 3.5 Chloride 103 Carbon Dioxide 30 H Anion Gap 10.5 BUN 11 Creatinine 0.5 GFR Calculation Not Reportable Glucose 83 Calculated Osmolality 289 Calcium 7.7 L Iron Ferritin Total Bilirubin AST ALT Alkaline Phosphatase Troponin T Baseline Troponin T 120 Minute Delta Troponin T Troponin T Hi Sens 6Hr Troponin T Hi Sens 6Hr Delta NT-Pro-B Natriuret Pep Total Protein Albumin Globulin Carcinoembryonic Ag Urine Color Urine Appearance Urine pH Ur Specific [place] Urine Protein Urine Glucose (UA) Urine Ketones Urine Blood Urine Nitrate Urine Bilirubin Urine Urobilinogen Ur Leukocyte Esterase Urine RBC Urine WBC Ur Squamous Epith Cells Amorphous Sediment Urine Bacteria Hyaline Casts Urine Mucus Blood Type Rho(D) Type Antibody Screen Crossmatch 05/22/21 04:36 WBC RBC Hgb Hct MCV MCH MCHC RDW Plt Count MPV Neut % (Auto) Lymph % (Auto) [place] % (Auto) Eos % (Auto) Baso % (Auto) Neut # (Auto) Lymph # (Auto) [place] # (Auto) Eos # (Auto) Baso # (Auto) Nucleated RBC % (auto) Nucleated RBCs # PT INR APTT D-Dimer 4.81 H Sodium Potassium Chloride Carbon Dioxide Anion Gap BUN Creatinine GFR Calculation Glucose Calculated Osmolality Calcium Iron Ferritin Total Bilirubin AST ALT Alkaline Phosphatase Troponin T Baseline Troponin T 120 Minute Delta Troponin T Troponin T Hi Sens 6Hr Troponin T Hi Sens 6Hr Delta NT-Pro-B Natriuret Pep Total Protein Albumin Globulin Carcinoembryonic Ag Urine Color Urine Appearance Urine pH Ur Specific [place] Urine Protein Urine Glucose (UA) Urine Ketones Urine Blood Urine Nitrate Urine Bilirubin Urine Urobilinogen Ur Leukocyte Esterase Urine RBC Urine WBC Ur Squamous Epith Cells Amorphous Sediment Urine Bacteria Hyaline Casts Urine Mucus Blood Type Rho(D) Type Antibody Screen Crossmatch Micro: Microbiology 05/21/21 22:35 Occult Blood (FIT) - Final Stool Routine Collection Cardiac Studies: Echocardiogram 05/02/21
--- NOTE | 2021-05-22 15:11 | CTR_ITS ---
PROCEDURE INFORMATION: Exam: CT Angiography Head Without And With Contrast, Arteriography Exam date and time: 05/22/2021 3:11 PM Age: 85 years old Clinical indication: Other: Dysphagia, carotid stenosis; Additional info: Carotid stenosis dysphagia TECHNIQUE: Imaging protocol: Computed tomographic angiography of the head without and with contrast. Exam focused on the arteries. 3D rendering (Not supervised by radiologist): MIP and/or 3D reconstructed images were created by the technologist. Radiation optimization: All CT scans at this facility use at least one of these dose optimization techniques: automated exposure control; mA and/or kV adjustment per patient size (includes targeted exams where dose is matched to clinical indication); or iterative reconstruction. Contrast material: OMNI 350; Contrast volume: 95 ml; Contrast route: INTRAVENOUS (IV); COMPARISON: SR CV carotid duplex BI* [id number] 05/02/2021 3:00:00 PM RADIATION DOSE METRICS: Total DLP (mGy-cm): 2123.91 FINDINGS: ANTERIOR CIRCULATION: Right internal carotid artery: There is mild atherosclerotic disease in the cavernous portion of the right internal carotid artery without significant stenosis. Right middle cerebral artery: No occlusion or significant stenosis. No aneurysm. Right anterior cerebral artery: No occlusion or significant stenosis. No aneurysm. Left internal carotid artery: There is mild atherosclerotic disease in the cavernous portion of the left internal carotid artery without significant stenosis. Left middle cerebral artery: No occlusion or significant stenosis. No aneurysm. Left anterior cerebral artery: No occlusion or significant stenosis. No aneurysm. POSTERIOR CIRCULATION: Right vertebral artery: No occlusion or significant stenosis. No aneurysm. Left vertebral artery: No occlusion or significant stenosis. No aneurysm. Basilar artery: No occlusion or significant stenosis. No aneurysm. Right posterior cerebral artery: No occlusion or significant stenosis. No aneurysm. Left posterior cerebral artery: No occlusion or significant stenosis. No aneurysm. Veins: Dural venous sinuses are patent. HEAD: Brain: There is diffuse cerebral atrophy and chronic microvascular white matter disease. There is a focal hypodensity in the right lentiform nucleus suggesting a chronic lacunar infarct. There is no acute intracranial hemorrhage. There is no pathologic enhancement of brain. There is a 10 mm partially calcified extra-axial mass lateral to the right temporal lobe suggesting a meningioma. Cerebral ventricles: There is mild ex vacuo dilation of the lateral ventricles. The basal cisterns are unremarkable. Bones/joints: The calvarium is intact. Paranasal sinuses: The paranasal sinuses are clear. Mastoid air cells: The mastoid air cells are clear. Soft tissues: The visible extracranial soft tissues are unremarkable. IMPRESSION: 1. No arterial stenosis, occlusion or aneurysm. 2. 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 3. 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 PROCEDURE INFORMATION: Exam: CT Angiography Neck With Contrast Exam date and time: 05/22/2021 3:11 PM Age: 85 years old Clinical indication: Other: Dysphagia, carotid stenosis; Additional info: Carotid stenosis dysphagia TECHNIQUE: Imaging protocol: Computed tomography angiography of the neck with contrast. 3D rendering (Not supervised by radiologist): MIP and/or 3D reconstructed images were created by the technologist. Radiation optimization: All CT scans at this facility use at least one of these dose optimization techniques: automated exposure control; mA and/or kV adjustment per patient size (includes targeted exams where dose is matched to clinical indication); or iterative reconstruction. Contrast material: OMNI 350; Contrast volume: 95 ml; Contrast route: INTRAVENOUS (IV); COMPARISON: CT chest wo [facility] [id number] 11/29/2019 1:58:10 PM RADIATION DOSE METRICS: Total DLP (mGy-cm): 2123.91 FINDINGS: Right common carotid artery: Mild calcific plaque in the right common carotid artery without significant stenosis. Right internal carotid artery: Severe calcific plaque at the right internal carotid artery origin. 60-70% stenosis at the right internal carotid artery origin. Right external carotid artery: High-grade stenosis at the origin of the right external carotid artery. Left common carotid artery: No stenosis. No dissection or occlusion. Left internal carotid artery: Severe calcific plaque at the origin of left internal carotid artery with 50-60% stenosis. Left external carotid artery: There is approximately 50% stenosis at the origin of the left external carotid artery. Right vertebral artery: There is mild calcific plaque in the right vertebral artery without stenosis. Left vertebral artery: The left vertebral artery is normal. Soft tissues: Soft tissues in the neck and thoracic inlet are unremarkable. Bones/joints: There is moderate degenerative disc disease in the cervical spine. Lungs: There are noncalcified pleural-based pulmonary nodules in the left upper lobe, some of which are partially imaged, measuring up to 2.3 x 1.3 cm. The right lung apex is clear. CT/CT angio headneck* [id number] IMPRESSION: 1. 60-70% stenosis at the origin of the right internal carotid artery. 2. 50-60% stenosis at the origin of the left internal carotid artery. 3. High-grade stenosis with near occlusion at the origin of the right external carotid artery and approximately 50% stenosis of the left external carotid artery. 4. Left upper lung nodules are increased in size since 11/29/2019. Highly suspicious nodule(s). Consider non-emergent PET/CT, or tissue sampling.(Reference: Sonu) REFERENCES: 1. Hoodhoroseline H, et al. Guidelines for Management of Incidental Pulmonary Nodules Detected on CT Images: From the Fleischner Society 2017. Radiology. 2017;284(1):228-243. 2. NASCET CRITERIA. The degree of internal carotid artery stenosis is based on NASCET criteria. Normal is no stenosis. Mild is less than 50% stenosis. Moderate is 50-69% stenosis. Severe is 70% to 99% stenosis. Total occlusion is no detectable patent lumen. Radiation Dose CTDIVOL = (mGy): DLP = 2123.91~2123.91 (mGy-cm)
--- NOTE | 2021-05-22 15:34 | PC.NUTR ---
Nutrition assessment for low BMI. Reports 20% wt loss X 3 mo d/t decreased appetite, swallowing difficulty, taste changes, and lack of strength to prepare meals. Recommend WO[employer] GRADER evaluation and social work evaluation. Also recommend consideration of changing diet to 2gm Na rather than cardiac diet, to allow slightly more options while still limiting salt, as pt requesting regular eggs in AM. Offered nutritional supplements to pt but she declined at this time. See full RD assessment for further details.
--- NOTE | 2021-05-22 16:00 | ANE.PACU2 ---
Inpatient post-anesthesia follow up: Airway intact: Yes Vital signs: Temperature 97.1 F Pulse Rate [Monito r] 84 Pulse Rate 59 Respiratory Rate 16 Blood Pressure [Ri ght Arm] 116/41 Blood Pressure 140/60 Pulse Oximetry 99 Oxygen Delivery Me thod Room Air Oxygen Flow Rate 4 Fraction of Inspir ed Oxygen Hydration adequate: Yes Nausea and vomiting: No Pain level: 2 Mental status: Baseline
[2021-05-22] MEDS: FUROsemide 20 mg Tablet PO (16:15)
[2021-05-22] MEDS: levofloxacin-dextrose 5 % 500 MG/100 ML PREMIX 100 MG IV (16:15)
[2021-05-22] MEDS: iohexol 350 mg/mL 100 mL Btl IV (17:41)
[2021-05-22] MEDS: metroNIDAZOLE IV 250 MG in empty flexible container 1 EACH 50 MG IV ×2 (17:42→21:58)
--- NOTE | 2021-05-22 19:10 | PC.NURSE ---
Received report from IAN Moses. Patient resting in bed watching TV. Denies pain or needs at this time. No distress observed. Instructed patient on Flagyl. Patient verbalized understanding. Patient requesting to be tucked into bed stating, I am ready to go to sleep. Positioned patient for comfort and straightened covers. Patient expressed thanks.
--- NOTE | 2021-05-22 19:44 | PC.NURSE ---
Shift Note pt completed egd and colonoscopy today.tolerated well Frequent safety and comfort rounds continue. Orders and/or nursing care completed as indicated. Patient monitored for response to intervention and treatment(s). Education provided includes[medication education]. Patient and/or route service representative verb understanding]. Will continue to monitor.
[2021-05-23 03:54] VITALS: BP 118/48; PULSE 67; RESP 28; O2SAT 95
[2021-05-23 03:54] LABS: Basophils % 0.4 %; Eosinophils # 0.1 10^3/uL (0.0-0.8); Eosinophils % 1.5 %; Hematocrit 31.2 % (37.0-47.0); Hemoglobin 8.8 g/dL (11.5-15.3); Lymphocytes # 1.5 10^3/uL (0.8-4.8); Lymphocytes % 17.4 %; Mean Corpuscular HGB Conc 28.2 g/dL (30.0-36.0); Mean Corpuscular Hemoglobin 23.2 pg (28.0-34.0); Mean Corpuscular Volume 82.3 fl (81-99); Mean Platelet Volume 10.4 fL (7.4-10.4); Monocytes # 0.9 10^3/uL (0.2-0.9); Monocytes % 10.5 %; Neutrophils # 5.95 10^3/uL (1.8-7.7); Neutrophils % 69.8 %; Nucleated Red Blood Cells # 0.1 /100WBC; Nucleated Red Blood Cells % 0.8 %; Platelet Count 188 10^3/cmm (130-400); Red Blood Count 3.79 10^6/uL (4.1-5.3); Red Cell Distribution Width 24.2 % (12.1-15.1); White Blood Count 8.5 10^3/uL (4.0-10.0)
[2021-05-23 04:16] LABS: Anion Gap 10.2 (5-19); Blood Urea Nitrogen 10 mg/dL (8-23); Calcium 7.3 mg/dL (8.5-10.5); Carbon Dioxide 32 mmol/L (22-29); Chloride 102 mmol/L (98-107); Creatinine Clr Calc Pharmacy 44.7594; Glucose 92 mg/dL (65-115); Osmolality Calculated 291 mOsm/kg (285-295); Potassium 3.2 mmol/L (3.5-5.1); Sodium 141 mmol/L (136-145)
--- NOTE | 2021-05-23 06:26 | PC.NURSE ---
Shift Note Frequent safety and comfort rounds continue. Orders and/or nursing care completed as indicated. Patient monitored for response to intervention and treatment(s). Education provided includes flagyl. Patient verbalized complete understanding. Patient has had and uneventful evening. Denies pain or needs. No distress observed. Will continue to monitor.
[2021-05-23] MEDS: metroNIDAZOLE IV 250 MG in empty flexible container 1 EACH 50 MG IV (07:02)
[2021-05-23] MEDS: iron complex forte Capsule 1 EACH PO (08:30)
[2021-05-23] MEDS: pantoprazole 40 mg SDV IVP (08:30)
--- NOTE | 2021-05-23 14:12 | P.DS_ITS ---
Discharge Providers Date of Admission: 05/20/21 17:02 Date of Discharge: May 23, 2021 Attending Provider at Admission: Reagan Larios MD Attending Provider at Discharge: Reagan Larios MD Primary Care Provider: MEENU Blum Diagnoses at Discharge Discharge Diagnosis (1) Family history of colon cancer: Status: Acute (2) Elevated CEA: Status: Acute (3) Iron deficiency anemia: Status: Acute (4) Anemia: Status: Acute (5) Acute blood loss anemia: Status: Acute (6) Complaint of melena: Status: Acute (7) Pulmonary nodule: Status: Acute (8) Acute respiratory failure with hypoxia: Status: Acute Reason for Visit Reason for Visit: WEAKNESS Hospital Course Hospital Course 85-year-old female who presented to the hospital with chief complaint of wor sening weakness and shortness of breath. She has family history of colon cancer. Hemoglobin less than 5 on admission, she required 2 units of PRBC, it improved her hemoglobin to 8.8. Fit test positive. She did notice melanotic stools at home. She underwent EGD and colonoscopy which revealed colitis and she was put on Flagyl and Levaquin. Her abdominal imaging did show right-sided pulmonary nodule which is increasing in dimension, patient decided to not pursue histopathological diagnosis, in case of cancer she would not opt for chemo or radiotherapy. This was discussed with her daughter as well who is respecting her mother's wishes. She suffered from dysphagia and was not able to swallow properly I did not notice any neurological deficits however did CTA head and neck which revealed moderate carotid artery stenosis. Her CEA is around 10. Daughter is in the room, she is in agreement to have her mother home(she took time off from her work), they want to follow-up with Dr. Carrasco outpatient. Patient is able to swallow after EGD and colonoscopy, informed me she was able to eat apple pie and drink chocolate shake without any difficulty, no active signs of choking aspiration or coughing. CT/CT angio headneck* 71080/[id number] IMPRESSION: 1. 60-70% stenosis at the origin of the right internal carotid artery. 2. 50-60% stenosis at the origin of the left internal carotid artery. 3. High-grade stenosis with near occlusion at the origin of the right external carotid artery and approximately 50% stenosis of the left external carotid artery. 4. Left upper lung nodules are increased in size since 11/29/2019. Highly suspicious nodule(s). Consider non-emergent PET/CT, or tissue sampling.(Reference: Sonu) CT/CT abdomen pelvis wo/w 56541 IMPRESSION: 1. Cholelithiasis with dilation of the common bile duct measuring 6 to 7 mm. This can be further evaluated with MRCP. 2. Sigmoid diverticulosis. No evidence of high-grade small or large bowel obstruction. 3. No abdominal or pelvic lymphadenopathy. 4. Low-attenuation left ovarian cystic lesion measuring 2.1 x 1.5 cm. This can be followed up with ultrasound. 5. Tiny bilateral pleural effusions with slight patchy infiltrates in the lung bases. Correlation for pneumonitis. 6. Tortuous densely calcified abdominal aorta. Aortic ectasia measures 2.4 x 2.1 CM. 7. No hydronephrosis in either kidney. 8. Lumbar scoliosis with advanced spondylitic changes. Physical Exam Narrative: EXAM NARRATIVE: Patient this morning was in good spirits, daughter at the bedside No neurological deficits Bilateral breath sounds with rhonchi or crackles at the bases No active chest pain Abdomen soft bowel sounds present Lower extremity no edema She is awake and alert oriented x3 GCS 15 Does require supplemental oxygen no use of respiratory accessory muscles today Was able to drink and eat solid food and chocolate shake without any difficulty Discharge Data Data Completed and Pending: Completed Studies During Hospitalization Category Date Time Status CT abdomen pelvis wo/w [id number] Routin e Cat Scan 05/21/21 08:[address] angio headneck * [id number] Rout ine Cat Scan 05/22/21 15:11 Completed XR chest 1V hasmukh ble [id number] Stat Exams 05/20/21 15:05 Completed XR chest 1V hasmukh ble [id number] Stat Exams 05/22/21 10:15 Completed Labs from last 24 hours 05/23/21 05/23/21 03:37 03:37 WBC 8.5 RBC 3.79 L Hgb 8.8 L Hct 31.2 L MCV 82.3 MCH 23.2 L MCHC 28.2 L RDW 24.2 H Plt Count 188 MPV 10.4 Neut % (Auto) 69.8 Lymph % (Auto) 17.4 [place] % (Auto) 10.5 Eos % (Auto) 1.5 Baso % (Auto) 0.4 Neut # (Auto) 5.95 Lymph # (Auto) 1.5 [place] # (Auto) 0.9 Eos # (Auto) 0.1 Baso # (Auto) 0.0 Nucleated RBC % (a uto) 0.8 Nucleated RBCs # 0.1 Sodium 141 Potassium 3.2 L Chloride 102 Carbon Dioxide 32 H Anion Gap 10.2 BUN 10 Creatinine 0.6 GFR Calculation Not Reportable Glucose 92 Calculated Osmolal ity 291 Calcium 7.3 L Vitals: Last Vital Signs Temp 98.7 F 05/22/21 19:30 Pulse 67 05/23/21 03:54 Resp 28 H 05/23/21 03:54 BP 118/48 05/23/21 03:54 Pulse Ox 95 05/23/21 03:54 Discharge Plan Discharge Patient Disposition: Home Condition: Stable Prescriptions: New atorvastatin 20 mg tablet 20 mg PO DAILY Qty: 30 RF: 0 omeprazole 20 mg capsule,delayed release(DR/EC) 20 mg PO DAILY Qty: 60 RF: 1 ciprofloxacin HCl 500 mg tablet 500 mg PO BID Qty: 10 RF: 0 Flagyl 500 mg tablet 500 mg PO Q8H 5 Days Qty: 15 RF: 0 Continued aspirin 81 mg tablet,delayed release (DR/EC) 81 mg PO QPM RF: 0 cholecalciferol (vitamin D3) 2,000 unit tablet 2,000 unit PO QAM RF: 0 Geritol Complete 16 mg iron- 0.38 mg tablet 1 tab PO QAM RF: 0 albuterol sulfate [Ventolin HFA] 90 mcg/actuation HFA aerosol inhaler 3 puff INHALATION BID PRN (Reason: Shortness Of Breath) Qty: 3 RF: 1 Tylenol Extra Strength 500 mg Tablet 500 mg PO BID@ RF: 0 furosemide 40 mg tablet 40 mg PO DAILY@ RF: 0 diltiazem HCl 90 mg capsule,extended release 12 hr 90 mg PO BID@ RF: 0 furosemide 20 mg tablet 30 mg PO DAILY@13 RF: 0 potassium chloride 10 mEq tablet,ER particles/crystals 30 meq PO DAILY@1230 RF: 0 Biofreeze Roll-On 1 applic topical BID PRN (Reason: Pain) RF: 0 Discharge Orders: Discharge Order (Routine); Ordered 05/23/21 Ordered By: Reagan Larios Referrals: Ermelinda Hopson FNP [Primary Care Provider] - 1-3 days Maria E Carrasco MD [Physician] - 06/04/21 3:30 pm (You have a cardiology followup with Dr. Carrasco on June 04 at 3:30pm ) Discharge Diet: Regular Discharge Activity: Increase activity as tolerated Patient Instructions: Ciprofloxacin (By mouth), Metronidazole (By mouth), Omeprazole (By mouth), Atorvastatin (By mouth), GI Discharge Instructions, Opioid Safety Activity Restrictions/Additional Instructions: You are requiring oxygen and there is right-sided pulmonary nodule malignancy has not been ruled out you have decided against histopathological diagnosis or any treatment if it is a cancer He does have carotid artery disease 60 to 70% stenosis please follow-up with Dr. Carrasco for further intervention I will send you home on aspirin and atorvastatin Please take omeprazole for acid reflux and gastritis For colitis you will get ciprofloxacin and Flagyl 5-day regimen Discharge Attestations Time Spent in Discharge Care*: less than 30 min Status at Discharge: Cognitive status at discharge: cognitively intact , Behavioral status at discharge: cooperative , Quality Metrics Clinical Quality Measures During this hospital stay, did patient experience: None Coding Level of Care Code Acute g DC note Diagnoses Family history of colon cancer Z80.0 Elevated CEA R97.0 Iron deficiency anemia D50.9 Anemia D64.9 Acute blood loss anemia D62 Complaint of melena K92.1 Pulmonary nodule R91.1 Acute respiratory failure with hypoxia J96.01
[2021-05-23 14:30] VITALS: BP 122/52; PULSE 67; RESP 28; TEMP 36.3; O2SAT 95
--- NOTE | 2021-05-24 09:19 | PC.SOCIAL ---
discharge follow up call made. spoke with patient. patient picked up medications from her pharmacy yesterday, taking as prescribed. patient is aware of follow up appointment dates and times. she is changing her follow up appointment with Jaz Hopson, due to scheduling conflict. patient is on home O2 at , [place]. Patient is aware of needed ti have CV venous duplex, she is unsure if she wants this done. Graphics Software Engineer discussed with patient that centralized scheduling would be calling to schedule and at this time if she chose to not have scan done to let them know. patient denies questions or concerns.
--- NOTE | 2021-05-24 14:54 | PC.RESP ---
PULMONARY REHAB INFORMATION SENT TO PATIENT.
== END 2021-05-23 16:00 | disposition home or self-care (01) ==
LOC: ER 15:48 → CSU 16:14
PROVIDERS: Surgery; Admitting Provider Internal Medicine; Emergency Provider Emergency Medicine; PCP Nurse Practitioner Family; Visit Provider Internal Medicine
PROC: 0DJ08ZZ Inspection of Upper Intestinal Tract, Via Natural or Artificial Opening Endoscopic (ICD-10-PCS; CPT 43235; principal; 2021-05-22 13:15)
PROC: 0DJD8ZZ Inspection of Lower Intestinal Tract, Via Natural or Artificial Opening Endoscopic (ICD-10-PCS; CPT 45378; 2021-05-22 13:15)
DX: D50.9 Iron deficiency anemia, unspecified (principal); R53.1 Weakness; K92.1 Melena; Z80.0 Family history of malignant neoplasm of digestive organs; D62 Acute posthemorrhagic anemia; R01.1 Cardiac murmur, unspecified; R97.0 Elevated carcinoembryonic antigen [CEA]; R91.1 Solitary pulmonary nodule; J96.01 Acute respiratory failure with hypoxia; R79.89 Other specified abnormal findings of blood chemistry; Z79.82 Long term (current) use of aspirin; I11.0 Hypertensive heart disease with heart failure; I50.9 Heart failure, unspecified; J44.9 Chronic obstructive pulmonary disease, unspecified; M19.90 Unspecified osteoarthritis, unspecified site; E78.5 Hyperlipidemia, unspecified; E55.9 Vitamin D deficiency, unspecified; Z82.49 Family history of ischemic heart disease and other diseases of the circulatory system; K52.9 Noninfective gastroenteritis and colitis, unspecified
CPT/HCPCS: 36415; 36430; 43239; 45378; 70496; 70498; 71045; 74178; 80048; 80053; 81001; 82274; 82378; 82728; 83540; 83880; 84484; 85025; 85378; 85610; 85730; 86850; 86900; 86920; 92523; 92526; 92610; 93005; 96361; 96365; 96367; 96375; 97161; 97530; 99285; C9113; G0378; J1940; J1956; J2704; J7030; J7040; P9016; Q9967; S0030

== ENCOUNTER → 2021-05-30 10:01 | Outpatient (BNVA) | payer MEDICARE, SELFPAY | PROVIDERS: PCP Nurse Practitioner Family; Visit Provider Internal Medicine Cardiovascular Disease | DX: I50.33 Acute on chronic diastolic (congestive) heart failure (principal); M79.89 Other specified soft tissue disorders; R53.1 Weakness; Z01.812 Encounter for preprocedural laboratory examination; E78.5 Hyperlipidemia, unspecified | CPT/HCPCS: 80048; 82565; 83880; 84520 ==

== ENCOUNTER → 2021-06-05 14:58 | Outpatient (BNVA) | payer MEDICARE, SELFPAY | PROVIDERS: PCP Nurse Practitioner Family; Visit Provider Nurse Practitioner Family | DX: D64.9 Anemia, unspecified (principal); D50.0 Iron deficiency anemia secondary to blood loss (chronic) | CPT/HCPCS: 85025 ==

== ENCOUNTER → 2021-06-12 11:18 | Outpatient (BNVA) | payer MEDICARE, SELFPAY | PROVIDERS: PCP Nurse Practitioner Family; Visit Provider Nurse Practitioner Family | DX: D64.9 Anemia, unspecified (principal); K52.9 Noninfective gastroenteritis and colitis, unspecified | CPT/HCPCS: 82270 ==

== ENCOUNTER 2021-12-07 11:24 | Inpatient (IN) | payer MEDICARE, SELFPAY ==
[2021-12-07] VITALS (27 sets, daily range): BP systolic 91–121; BP diastolic 20–86; PULSE 89–143; RESP 4–47; TEMP 36.8–37.6; O2SAT 84–97; BMI 26.5
--- NOTE | 2021-12-07 11:29 | ECG_ITS ---
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 Measurements Intervals [place] Rate: 122 P: [place]: QRS: -75 QRSD: 112 T: 82 QT: 327 QTc: 467 Interpretive Statements ATRIAL FIBRILLATION WITH RAPID VENTRICULAR RESPONSE PATTERN CONSISTENT WITH PULMONARY DISEASE LEFT ANTERIOR FASCICULAR BLOCK [QRS AXIS <= -45, QR IN I, RS IN II] Compared to ECG 05/20/2021 23:28:58 Sinus rhythm no longer present Myocardial infarct finding no longer present Electronically Signed On 12-08-2021 21:58:36 CDT by Maria E Carrasco M.D. [id number]
--- NOTE | 2021-12-07 11:29 | XRR_ITS ---
PROCEDURE INFORMATION: Exam: XR Chest Exam date and time: 12/07/2021 11:59 AM Age: 85 years old Clinical indication: Dyspnea TECHNIQUE: Imaging protocol: XR of the chest. Views: 1 view. Total images: 1 COMPARISON: CR XR chest 1V portable [id number] 05/22/2021 10:08 AM FINDINGS: Lungs: Coarse chronic pulmonary markings. Mild opacity in the right mid lung may represent atelectasis and or pneumonia. Previously noted nodule in the left upper lobe has increased in size and now measures 4.2 cm and there is an adjacent nodule which measures 2.9 cm. Pleural spaces: There is blunting of the right costophrenic angle, likely indicating a small pleural effusion. Heart/Mediastinum: Heart size is stable when compared to the prior exam. Vasculature: Atherosclerosis is evident. Bones/joints: Osseous structures are unchanged from the prior exam. XR/XR chest 1V portable [id number] IMPRESSION: 1. Coarse chronic pulmonary markings. 2. There is blunting of the right costophrenic angle, likely indicating a small pleural effusion. 3. Mild opacity in the right mid lung may represent atelectasis and or pneumonia. 4. Previously noted nodule in the left upper lobe has increased in size and now measures 4.2 cm and there is an adjacent nodule which measures 2.9 cm.
[2021-12-07 11:39] LABS: Basophils % 0.3 %; Eosinophils % 0.1 %; Hematocrit 57.7 % (37.0-47.0); Hemoglobin 17.8 g/dL (11.5-15.3); Lymphocytes # 0.6 10^3/uL (0.8-4.8); Lymphocytes % 8.6 %; Mean Corpuscular HGB Conc 30.8 g/dL (30.0-36.0); Mean Corpuscular Hemoglobin 32.8 pg (28.0-34.0); Mean Corpuscular Volume 106.3 fl (81-99); Mean Platelet Volume 11.1 fL (7.4-10.4); Monocytes # 0.6 10^3/uL (0.2-0.9); Monocytes % 7.8 %; Neutrophils # 6.17 10^3/uL (1.8-7.7); Neutrophils % 82.7 %; Nucleated Red Blood Cells % 0 %; Platelet Count 184 10^3/cmm (130-400); Red Blood Count 5.43 10^6/uL (4.1-5.3); Red Cell Distribution Width 16.7 % (12.1-15.1); White Blood Count 7.5 10^3/uL (4.0-10.0)
--- NOTE | 2021-12-07 11:43 | ED_ITS ---
HPI - General Adult General: Chief complaint: Weakness Stated complaint: WEAKNESS; SOB Time Seen by Provider: 12/07/21 11:29 History of Present Illness: Patient is a 85-year-old female with history of COPD, atrial fibrillation, CHF, smoking who presents emergency room with worsening dyspnea cough and generalized weakness x2 weeks. Patient initially was seen by her primary care provider on 12/03/2021 for multiple episodes of fall. At that time, patient had productive sputum was diagnosed with pneumonia. Patient required oxygen at that time but [facility] Patient was scheduled for oxygen and started levofloxacin. However patient tells me that she has not been able to get oxygen up until yesterday when home health set up oxygen for her yesterday afternoon. Patient at the present time, denies any chest pain, abdominal complaints, nausea /vomiting, melena/hematochezia, or urinary complaints. Onset: 2 weeks ago Duration:ongoing Location:home Severity:moderate Associated symptoms: Reports dyspnea; Deny chest pain, nausea, rash, palpitations or vomiting Review of Systems Const: Denies: fever(s) or chills Eyes: Denies: change in vision ENMT: Denies: mouth pain Card: Denies: chest pain or palpitations Resp: Reports: dyspnea; Denies: non-productive cough GI: Denies: abdominal pain, nausea, vomiting or diarrhea : Denies: dysuria Musc: Denies: extremity pain Skin/Breast: Denies: rash or new lesions Neuro: Denies: weakness in extremities Psych: Reports: other (Normal mood) Andrew/Lymph: Denies: easy bruising PFSH ED PFSH: Medical History Acute on chronic diastolic (congestive) heart failure Asymptomatic carotid artery stenosis Carotid artery aneurysm CHF (congestive heart failure) COPD (chronic obstructive pulmonary disease) DDD (degenerative disc disease) Essential hypertension Family history of colon cancer Heart murmur Hyperlipidemia Leg swelling Mild aortic valve stenosis Vitamin D deficiency Weakness Surgical History History of section, classical Hx of adenoidectomy Hx of appendectomy Hx of tonsillectomy Family History Mother CAD (coronary artery disease) Diabetes Father Cancer Colon cancer Other Hypertension Hypothyroid Denies family history of Clotting disorder Dementia Chronic kidney disease (CKD) Suicide Anesthesia complication Bleeding disorder Lung disease Stroke Social History (Updated 12/07/21 @ 11:49 by Lynda Grove MD) Smoking and tobacco status: current every day smoker Alcohol intake: never Substance/Drug Use: never Physical Exam Const: COMMON NORMALS: alert HENMT: COMMON NORMALS: atraumatic HEAD & SCALP: atraumatic MOUTH: moist mucous membranes not abnormal Eye: COMMON NORMALS: EOMs intact bilaterally and conjunctivae normal CONJUNCTIVA: Yes conjunctivae normal Neck/C-Spine: COMMON NORMALS: full ROM and supple Resp: COMMON NORMALS: normal respiratory effort OTHER: + Coarse breath sounds bilaterally, minimal expiratory wheezes Cardio: OTHER: +irregular irregular tachycardia GI: COMMON NORMALS: Soft to palpation and non-tender PALPATION: Yes Soft to palpation Extremity: COMMON NORMALS: full ROM OTHER: 1+ lower extremity swelling b/l Neuro: SENSORIUM/ORIENTATION: Yes alert MOTOR EXAM: No Abnormal motor strength present and Other motor observations present (no focal motor deficits) Psych: COMMON NORMALS: speech normal SPEECH: Yes normal speech MOOD & AFFECT: Yes euthymic mood Course Vital Signs: Vital signs: Vital Signs Temperature 98.3 F 12/07/21 11:30 Pulse Rate 94 12/07/21 12:28 Respiratory Rate 18 12/07/21 12:28 Blood Pressure 117/20 12/07/21 12:21 Pulse Oximetry 92 12/07/21 12:28 MDM - General Adult Medical Decision Making 85-year-old female history of CHF, COPD, hypertension, smoking presents the emergency room for worsening dyspnea and productive cough in the setting of generalized weakness and swelling in the lower extremities. On exam, patient is noted to be in A. fib with heart rate between 110-120. Patient also appears to have coarse breath sounds bilaterally satting at 90% on 5L of oxygen. PCO2 of 74.8. BNP of 8345, elevated compared to prior baseline. Patient received Lasix, Solu-Medrol and DuoNeb with significant improvement in dyspnea. Patient seen to be requiring 5 L of oxygen. X-ray showed possible R middle lobe pneumonia vs atelectasis, will treat with ceftriaxone and aizthromycin. Patient will be mated to the hospital for management of COPD/CHF. Disposition: admission Lab Data : 12/07/21 10:40 12/07/21 10:40 Radiology Impressions Chest X-Ray 12/07/21 11:29 IMPRESSION: 1. Coarse chronic pulmonary markings. 2. There is blunting of the right costophrenic angle, likely indicating a small pleural effusion. 3. Mild opacity in the right mid lung may represent atelectasis and or pneumonia. 4. Previously noted nodule in the left upper lobe has increased in size and now measures 4.2 cm and there is an adjacent nodule which measures 2.9 cm. Laboratory Results WBC 7.5 10^3/uL (4.0-10.0) 12/07/21 10:40 RBC 5.43 10^6/uL (4.1-5.3) H 12/07/21 10:40 Hgb 17.8 g/dL (11.5-15.3) H 12/07/21 10:40 Hct 57.7 % (37.0-47.0) H 12/07/21 10:40 MCV 106.3 fl (81-99) H 12/07/21 10:40 MCH 32.8 pg (28.0-34.0) 12/07/21 10:40 MCHC 30.8 g/dL (30.0-36.0) 12/07/21 10:40 RDW 16.7 % (12.1-15.1) H 12/07/21 10:40 Plt Count 184 10^3/cmm (130-400) 12/07/21 10:40 MPV 11.1 fL (7.4-10.4) H 12/07/21 10:40 Neut % (Auto) 82.7 % 12/07/21 10:40 Lymph % (Auto) 8.6 % 12/07/21 10:40 [place] % (Auto) 7.8 % 12/07/21 10:40 Eos % (Auto) 0.1 % 12/07/21 10:40 Baso % (Auto) 0.3 % 12/07/21 10:40 Neut # (Auto) 6.17 10^3/uL (1.8-7.7) 12/07/21 10:40 Lymph # (Auto) 0.6 10^3/uL (0.8-4.8) L 12/07/21 10:40 [place] # (Auto) 0.6 10^3/uL (0.2-0.9) 12/07/21 10:40 Eos # (Auto) 0.0 10^3/uL (0.0-0.8) 12/07/21 10:40 Baso # (Auto) 0.0 10^3/uL (0.0-0.1) 12/07/21 10:40 Nucleated RBC % (auto) 0 % 12/07/21 10:40 Nucleated RBCs # 0.0 /100WBC 12/07/21 10:40 Specimen Type Arterial 12/07/21 11:40 Sample Site Brachial, right 12/07/21 11:40 ABG pH 7.30 (7.35-7.45) L 12/07/21 11:40 ABG pCO2 74.8 mmHg (35-45) H* 12/07/21 11:40 ABG pO2 78.8 mmHg (80.0-100.0) L 12/07/21 11:40 ABG HCO3 36.5 mmol/L (22-26) H 12/07/21 11:40 ABG O2 Saturation 95.8 12/07/21 11:40 ABG Base Excess 6.3 mmol/L (-2.0-2.0) H 12/07/21 11:40 Luke Test Pos 12/07/21 11:40 A-a O2 Gradient 11.5 mmHg (5-10) H 12/07/21 11:40 Hematocrit 53.4 % (37-47) H 12/07/21 11:40 Hgb O2 Saturation 93.3 % (95-100) L 12/07/21 11:40 Carboxyhemoglobin 2.1 %THgb (0.4-20.1) 12/07/21 11:40 Methemoglobin 0.6 % (0.4-1.5) 12/07/21 11:40 Total Hemoglobin 17.4 g/dL (12-16) H 12/07/21 11:40 Sodium 140.0 mmol/L (131-143) 12/07/21 11:40 Potassium 5.4 mmol/L (3.5-5.0) H 12/07/21 11:40 Glucose 99.0 mg/dL (70-115) 12/07/21 11:40 Ionized Calcium 1.2 mmol/L (1.1-1.4) 12/07/21 11:40 O2 Delivery Device Nc 12/07/21 11:40 O2 Liters/Min 4.0 % 12/07/21 11:40 FiO2 36.0 % 12/07/21 11:40 Canvas Cutter Machine ID Bd 12/07/21 11:40 Sodium 139 mmol/L (136-145) 12/07/21 10:40 Potassium 5.6 mmol/L (3.5-5.1) H 12/07/21 10:40 Chloride 100 mmol/L (98-107) 12/07/21 10:40 Carbon Dioxide 35 mmol/L (22-29) H 12/07/21 10:40 Anion Gap 9.6 (5-19) 12/07/21 10:40 BUN 27 mg/dL (8-23) H 12/07/21 10:40 Creatinine 0.7 mg/dL (0.5-0.9) 12/07/21 10:40 GFR Calculation Not Reportable 12/07/21 10:40 Glucose 115 mg/dL (65-115) 12/07/21 10:40 Calculated Osmolality 294 mOsm/kg (285-295) 12/07/21 10:40 Calcium 8.8 mg/dL (8.5-10.5) 12/07/21 10:40 Total Bilirubin 0.7 mg/dL (0.15-1.2) 12/07/21 10:40 AST 58 U/L (0-32) H 12/07/21 10:40 ALT 57 U/L (0-33) H 12/07/21 10:40 Alkaline Phosphatase 198 IU/L (35-105) H 12/07/21 10:40 Troponin T Baseline 32 ng/L (0-10) H 12/07/21 10:40 Troponin T 120 Minute 31.05 ng/L (0-10) H 12/07/21 12:45 Delta Troponin T -0.95 ABS# (0-10) L 12/07/21 12:45 NT-Pro-B Natriuret Pep 8345 pg/mL (0-450) H 12/07/21 10:40 Total Protein 6.6 g/dL (6.6-8.7) 12/07/21 10:40 Albumin 3.5 g/dL (3.5-5.2) 12/07/21 10:40 Globulin 3.1 g/dL (1.3-4.6) 12/07/21 10:40 Lipase 21 U/L (13-60) 12/07/21 10:40 Imaging Data Other Imaging: Radiologist's impression: [address] [place] [address] XRay Report Signed Patient: Sneha Sanchez Unit #: [id number] : 1935 Age/Sex: 85 / F ADM Date: 12/07/21 Loc: ER Room/Bed: Attending Dr: Ordering Provider/Ordering MD: Lynda Grove MD Date of Service: 12/07/21 Procedure(s): XR chest 1V portable [id number] Accession Number(s): [id number] Report Number: [id number] PROCEDURE INFORMATION: Exam: XR Chest Exam date and time: 12/07/2021 11:59 AM Age: 85 years old Clinical indication: Dyspnea TECHNIQUE: Imaging protocol: XR of the chest. Views: 1 view. Total images: 1 COMPARISON: CR XR chest 1V portable [id number] 05/22/2021 10:08 AM FINDINGS: Lungs: Coarse chronic pulmonary markings. Mild opacity in the right mid lung may represent atelectasis and or pneumonia. Previously noted nodule in the left upper lobe has increased in size and now measures 4.2 cm and there is an adjacent nodule which measures 2.9 cm. Pleural spaces: There is blunting of the right costophrenic angle, likely indicating a small pleural effusion. Heart/Mediastinum: Heart size is stable when compared to the prior exam. Vasculature: Atherosclerosis is evident. Bones/joints: Osseous structures are unchanged from the prior exam. XR/XR chest 1V portable [id number] IMPRESSION: 1. Coarse chronic pulmonary markings. 2. There is blunting of the right costophrenic angle, likely indicating a small pleural effusion. 3. Mild opacity in the right mid lung may represent atelectasis and or pneumonia. 4. Previously noted nodule in the left upper lobe has increased in size and now measures 4.2 cm and there is an adjacent nodule which measures 2.9 cm. ? Dictated By: Todd Galeas MD Signed By: Todd Galeas MD Signed Date/Time: 12/07/21 1316 DD/ 1159 Discharge Plan Discharge Patient Disposition: Admitted As Inpatient Clinical Impression: CHF exacerbation, COPD exacerbation, Hypoxemia Condition: Stable Coding Level of Care Code ED Waiter/Waitress First Class for Chg Fwd Exam Comprehensive
[2021-12-07 12:06] LABS: Troponin(5th) Baseline 32 ng/L (0-10)
[2021-12-07] MEDS: metoprolol tartrate 1 mg/1 mL SDV 5 mL 5 MG IVP (12:09)
[2021-12-07 12:17] LABS: Alanine Aminotransferase 57 U/L (0-33); Albumin Level 3.5 g/dL (3.5-5.2); Alkaline Phosphatase 198 IU/L (35-105); Anion Gap 9.6 (5-19); Aspartate Amino Transferase 58 U/L (0-32); Blood Urea Nitrogen 27 mg/dL (8-23); Calcium 8.8 mg/dL (8.5-10.5); Carbon Dioxide 35 mmol/L (22-29); Chloride 100 mmol/L (98-107); Creatinine Clr Calc Pharmacy 49.3379; Globulin 3.1 g/dL (1.3-4.6); Glucose 115 mg/dL (65-115); Lipase 21 U/L (13-60); NT Pro B Type Natriuretic Pept 8345 pg/mL (0-450); Osmolality Calculated 294 mOsm/kg (285-295); Potassium 5.6 mmol/L (3.5-5.1); Sodium 139 mmol/L (136-145); Total Bilirubin 0.7 mg/dL (0.15-1.2); Total Protein 6.6 g/dL (6.6-8.7)
[2021-12-07 12:20] LABS: Alveolar-Arterial Oxygen Gradi 11.5 mmHg (5-10); Arterial Blood Gas Hematocrit 53.4 % (37-47); Base Excess ABG 6.3 mmol/L (-2.0-2.0); Blood Gas Allen Test Pos; Blood Gas Operator Identificat BD; Blood Gas Sample Site Brachial, right; Blood Gas Sample Type Arterial; Carboxyhemoglobin 2.1 %THgb (0.4-20.1); HCO3 ABG 36.5 mmol/L (22-26); HGB O2 Sat 93.3 % (95-100); Ionized Calcium Level - ABG 1.2 mmol/L (1.1-1.4); Methemoglobin 0.6 % (0.4-1.5); Oxygen Device NC; Oxygen Saturation ABG 95.8; PO2 ABG 78.8 mmHg (80.0-100.0); Potassium Level - ABG 5.4 mmol/L (3.5-5.0); Total Hemoglobin 17.4 g/dL (12-16)
[2021-12-07 12:21] LABS: ABG PCO2 74.8 mmHg (35-45)
[2021-12-07] MEDS: FUROsemide 10 mg/mL SDV 10mL 60 MG IVP (12:27)
[2021-12-07] MEDS: ipratropium-albuterol 3 mL Neb INHALATION ×5 (12:27→23:26)
[2021-12-07 13:23] LABS: Troponin 5 2HR 31.05 ng/L (0-10)
[2021-12-07 13:24] LABS: Troponin 5 2HR Delta -0.95 ABS# (0-10)
[2021-12-07 13:28] LABS: Adenovirus Not Detected (NOT DETECT); Chlamydia Pneumoniae Not Detected (NOT DETECT); Coronavirus 229E,HKU1,NL63,OC4 Not Detected (NOT DETECT); Human Metapneumovirus Not Detected (NOT DETECT); Human Rhinovirus/Enterovirus Detected (NOT DETECT); Influenza A Not Detected (NOT DETECT); Influenza A H1 Not Detected (NOT DETECT); Influenza A H1-2009 Not Detected (NOT DETECT); Influenza A H3 Not Detected (NOT DETECT); Influenza B Not Detected (NOT DETECT); Mycoplasma Pneumoniae Not Detected (NOT DETECT); Parainfluenza Virus Type 1 Not Detected (NOT DETECT); Parainfluenza Virus Type 2 Not Detected (NOT DETECT); Parainfluenza Virus Type 3 Not Detected (NOT DETECT); Parainfluenza Virus Type 4 Not Detected (NOT DETECT); Respiratory Syncytial Virus A Not Detected (NOT DETECT); Respiratory Syncytial Virus B Not Detected (NOT DETECT); SARS-COV-2 Not Detected (NOT DETECT)
--- NOTE | 2021-12-07 13:29 | ECG_ITS ---
[facility] Test Date: 2021-12-07 Pat Name: Sneha Sanchez Department: Room: Gender: Female Kaiawhina: : 1935 Requested By: Lynda Grove Order Number: [id number] Elías MD: Maria E Carrasco M.D. Measurements Intervals [place] Rate: 126 P: CT: QRS: -74 QRSD: 111 T: 122 QT: 318 QTc: 460 Interpretive Statements ATRIAL FIBRILLATION WITH RAPID VENTRICULAR RESPONSE PATTERN CONSISTENT WITH PULMONARY DISEASE LEFT ANTERIOR FASCICULAR BLOCK [QRS AXIS <= -45, QR IN I, RS IN II] ABNORMAL QRS-T ANGLE [QRS-T AXIS DIFFERENCE > 60] Compared to ECG 05/20/2021 23:28:58 Sinus rhythm no longer present Myocardial infarct finding no longer present Electronically Signed On 12-07-2021 19:09:46 CDT by Maria E Carrasco M.D. [id number]
[2021-12-07 13:32] LABS: Human Metapneumovirus Not Detected (NOT DETECT); Human Rhinovirus/Enterovirus Detected (NOT DETECT); Results from Genmark
[2021-12-07 13:32] LABS: Influenza A Not Detected (NOT DETECT); Influenza A H1 Not Detected (NOT DETECT); Influenza A H1-2009 Not Detected (NOT DETECT); Influenza A H3 Not Detected (NOT DETECT); Influenza B Not Detected (NOT DETECT); Results from Genmark
--- NOTE | 2021-12-07 14:25 | PM.HP ---
Providers/Chief Complaint Admitting Physician: Saurabh Lawler MD Primary Care Provider: MEENU Blum Chief Complaint: WEAKNESS; SOB History of Present Illness Sneha Sanchez is a 85 year old female with a past medical history of diastolic CHF, history of bilateral carotid artery stenosis, history of COPD, current smoker, hypertension, mild aortic stenosis, history of GI bleed, history of iron deficiency anemia, lung nodule, who presents to [facility] due to concerns for 2 falls, and increased shortness of breath, with productive cough. Patient tells me that recently she was living with her daughter, and she moved back home, she has fallen twice since she got home, denies any blacking out, any head trauma, she feels that they are mechanical falls, she is been developing increasing the short of breath, productive sputum, yellow, no fevers, no chills. She saw her primary care provider was placed on 2 L oxygen, was given Levaquin. She also reports increased weakness for the last week. During my questioning, patient does require frequent redirection, is quite forgetful her O2 sats dropped into the low mid 80s, on 2 L, then I turned up to 5 L, then up to 10 L her O2 sats remained in the mid 90s. She was found to have new onset atrial fibrillation, heart rates in the 120s, fluctuating between 120s to low 100s, was given metoprolol, was given Solu-Medrol for COPD exacerbation. Hospitalist team was called for concern for pneumonia, COPD, CHF exacerbation. Denies any hemoptysis. Denies any lightheadedness, dizziness. Denies any melanotic stools. She recently had a hospitalization for lower GI bleed, had a EGD and colonoscopy colonoscopy revealed colitis, and a small amount of blood in the ascending colon a proximal transverse colon, Hemoccult positive, hemoglobin down to the 5, required transfusion, she is on iron as outpatient, denies any recurrent bloody or black stools. Review of Systems Const: Denies: fever(s), chills, fatigue or malaise ENMT: Denies: nasal congestion Resp: Denies: dyspnea, productive cough, non-productive cough or wheezing GI: Denies: abdominal pain, nausea or vomiting : Denies: dysuria or urinary frequency Musc: Denies: neck pain or back pain Skin/Breast: Denies: rash Neuro: Denies: headache(s), dizziness or vertigo Endo: Denies: polyuria or polydipsia Medications/Allergies Home Medications Medication Instructions Recorded Confirmed Last Taken Type aspirin 81 mg tablet,delayed 81 mg PO QPM 09/22/19 12/07/21 12/06/21 History release cholecalciferol (vitamin D3) 50 2,000 unit PO QAM 09/22/19 12/07/21 12/06/21 History mcg (2,000 unit) tablet multivitamin with min 1 tab PO QAM 09/22/19 12/07/21 12/06/21 History no.36-iron,carbonyl-FA 16 mg iron-0.38 mg tablet (Geritol Complete) Biofreeze Roll-On 1 applic TOPICAL BID PRN 11/29/19 12/07/21 Unknown History acetaminophen 500 mg tablet 500 mg PO BID@,05/20/21 12/07/21 12/06/21 History (Tylenol Extra Strength) furosemide 20 mg tablet 30 mg PO DAILY@05/20/21 12/07/21 12/06/21 History furosemide 40 mg tablet 40 mg PO DAILY@05/20/21 12/07/21 12/06/21 History atorvastatin 20 mg tablet 20 mg PO DAILY #30 tab 05/23/21 12/07/21 12/06/21 Rx omeprazole 20 mg capsule,delayed 20 mg PO DAILY #60 cap 05/23/21 12/07/21 12/06/21 Rx release albuterol sulfate 90 mcg/actuation 2 puff INHALATION Q6H PRN #6.7 g 12/03/21 12/07/21 Unknown Rx aerosol inhaler (ProAir HFA) diltiazem HCl 90 mg See Rx Instructions .ROUTE 12/03/21 12/07/21 12/06/21 Rx capsule,extended release 12 hr .COMPLEX #180 capsule docusate sodium 250 mg capsule 250 mg PO DAILY #90 cap 12/03/21 12/07/21 12/06/21 Rx ferrous sulfate 325 mg (65 mg See Rx Instructions .ROUTE 12/03/21 12/07/21 12/06/21 Rx iron) tablet .COMPLEX #270 tab levofloxacin 500 mg tablet 500 mg PO DAILY 7 Days #7 tab 12/03/21 12/07/21 Unknown Rx potassium chloride 10 mEq 30 meq PO DAILY 12/07/21 12/07/21 12/06/21 History tablet,extended release Allergies Allergy/AdvReac Type Severity Reaction Status Date / Time Penicillins Allergy Mild unknown Verified 12/05/21 18:26 clotrimazole Allergy Unknown unknown Verified 12/03/21 11:15 PFSH Acute PFSH: Medical History Acute on chronic diastolic (congestive) heart failure Asymptomatic carotid artery stenosis Carotid artery aneurysm CHF (congestive heart failure) COPD (chronic obstructive pulmonary disease) DDD (degenerative disc disease) Essential hypertension Family history of colon cancer Heart murmur Hyperlipidemia Leg swelling Mild aortic valve stenosis Vitamin D deficiency Weakness Surgical History History of section, classical Hx of adenoidectomy Hx of appendectomy Hx of tonsillectomy Family History Mother CAD (coronary artery disease) Diabetes Father Cancer Colon cancer Other Hypertension Hypothyroid Denies family history of Clotting disorder Dementia Chronic kidney disease (CKD) Suicide Anesthesia complication Bleeding disorder Lung disease Stroke Social History (Updated 12/07/21 @ 11:49 by yLnda Grove MD) Smoking and tobacco status: current every day smoker Alcohol intake: never Substance/Drug Use: never Vitals/I&O/Wt Last Vital Signs Temp 98.3 F 12/07/21 11:30 Pulse 107 H 12/07/21 13:59 Resp 17 12/07/21 13:59 BP 100/81 12/07/21 13:59 Pulse Ox 97 12/07/21 13:59 Weight last 48 hrs Weight 68.039 kg Physical Exam Const: COMMON NORMALS: no acute distress and patient oriented x3 HENMT: COMMON NORMALS: normocephalic HEAD & SCALP: normocephalic Eye: COMMON NORMALS: Equal, round and reactive pupils present and EOMs intact bilaterally Neck/C-Spine: COMMON NORMALS: no JVD Lymph: LYMPHATIC: no lymphadenopathy noted Resp: COMMON NORMALS: normal respiratory effort, No retractions and No use of accessory muscles EFFORT & INSPECTION: Yes able to speak in complete sentences, Yes tachypneic and Yes Actively coughing AUSCULTATION: diminished lung sounds diffuse Cardio: COMMON NORMALS: no JVD, regular rate, regular rhythm, S1 normal heart sound present and S2 normal heart sound present RATE: regular rate RHYTHM: regular rhythm HEART SOUNDS: S1 normal heart sound present and S2 normal heart sound present GI: COMMON NORMALS: Normal to inspection, nondistended, normoactive bowel sounds present, Soft to palpation, non-tender, No hepatosplenomegaly present, no masses and no bruits PALPATION: Yes Soft to palpation and Yes No hepatosplenomegaly present Extremity: COMMON NORMALS: capillary refill normal, no clubbing, cyanosis or edema, no calf tenderness and no pedal edema Neuro: COMMON NORMALS: patient oriented x3, CN's II-XII intact bilaterally, moves all extremities and no focal motor deficits Psych: COMMON NORMALS: mental status grossly normal Data : 12/07/21 10:40 12/07/21 10:40 A&P Assessment and plan (1) Acute respiratory failure with hypoxia: Status: Acute (2) CHF exacerbation: Status: Acute (3) COPD exacerbation: Status: Acute (4) Pneumonia: Status: Acute (5) Anemia: Status: Acute (6) Carotid artery disease: Status: Acute Qualifiers: Carotid artery disease type: unspecified Laterality: bilateral Qualified Code(s): I77.9 - Disorder of arteries and arterioles, unspecified (7) Essential hypertension: Status: Chronic (8) Hyperlipidemia: Status: Chronic Qualifiers: Hyperlipidemia type: mixed hyperlipidemia Qualified Code(s): E78.2 - Mixed hyperlipidemia (9) Lung nodule: Status: Acute (10) Acute on chronic respiratory failure with hypoxia and hypercapnia: Status: Acute (11) New onset a-fib: Status: Acute (12) NSTEMI (non-ST elevated myocardial infarction): Status: Acute Plan Acute hypoxic hypercarbic respiratory failure -Multifactorial -COPD exacerbation, continues to smoke, over 70 years -CHF exacerbation, bilateral extremity edema -Viral URI, enterovirus PCR positive -She does have a opacity in the right midlung, she also has a nodule in the left upper lobe, possible postobstructive pneumonia? -As I watched her, she required up to 10 L to maintain sats in the mid 90s -PCO2 over 70, pH 7.3 Plan -We will monitor in ICU -Order CT angiogram of the chest, cardiac echo -Placed on BiPAP -Continue Solu-Medrol 40 every 8 hours -DuoNeb, budesonide -Daily dose Bumex, maintain mag greater than 2, potassium greater than 4 -Cefepime, azithromycin -Sputum cultures, blood cultures, urine bacterial antigens -Full code -SCDs for DVT prophylaxis, Lovenox relatively contraindicated given history of anemia New onset A. fib -Has been given 5 Metroprolol in the ER -Blood pressures are soft start amiodarone 400 twice daily -Monitor heart rate -Check mag, TSH -Anticoagulation relatively contraindicated given history of anemia, Elevated troponins, -Likely secondary to supply demand ischemia -Serial troponins, serial EKGs, telemetry monitoring -Continue aspirin, statin, Hyperkalemia, 1 dose Kayexalate, has received Lasix History of diastolic CHF, as above History of COPD as above History of aortic stenosis, History of a left upper lobe nodule, had elevated D-dimer during last hospitalization, refused further work-up, will do CT angiogram, agreeable, evaluate for pulmonary emboli Bilateral lower extremity edema, likely fluid overload will do venous ultrasound for DVT History of iron deficient anemia, acute anemia, hemoglobin down to 5.9, now over 17, no complaints of bloody black stools, continue iron History of lower GI bleed EGD and colonoscopy colonoscopy during May hospitalization revealed colitis, and a small amount of blood in the ascending colon a proximal transverse colon, Hemoccult positive, hemoglobin down to the 5, required transfusion, she is on iron as outpatient, denies any recurrent bloody or black stools. -Protonix for now Attestations Medical Necessity Statement*: Patient requires hospitalization, inpatient, greater than 2 midnights, for acute hypoxic respiratory failure secondary to pneumonia, CHF, COPD, A. 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
[2021-12-07 14:27] LABS: Add Urine Microscopic? NO; Charge for UA Resulting for Rev
[2021-12-07 14:29] LABS: Reticulocyte % 2.1 % (0.5-2.0)
[2021-12-07 14:42] LABS: Bilirubin Urine Neg (Negative); Blood Urine Neg (Negative); Glucose Urine UA Norm (Normal); Ketones Urine Negative (Negative); Leukocyte Esterase Urine Negative (Negative); Nitrate Urine Negative (Negative); Protein Urine Neg (Negative); Urine Appearance Clear (CLEAR); Urine Color Straw (Yellow); Urobilinogen Urine Norm (Negative); pH Urine 5 (5-7)
--- NOTE | 2021-12-07 14:44 | CTR_ITS ---
PROCEDURE INFORMATION: Exam: CTA Chest With Contrast Exam date and time: 12/07/2021 3:01 PM Age: 85 years old Clinical indication: Shortness of breath; Patient HX: C/O SOB TECHNIQUE: Imaging protocol: Computed tomographic angiography of the chest with contrast. 3D rendering (Not supervised by radiologist): MIP and/or 3D reconstructed images were created by the technologist. Radiation optimization: All CT scans at this facility use at least one of these dose optimization techniques: automated exposure control; mA and/or kV adjustment per patient size (includes targeted exams where dose is matched to clinical indication); or iterative reconstruction. Contrast material: OMNI 350; Contrast volume: 65 ml; Contrast route: INTRAVENOUS (IV); COMPARISON: CT chest wo con [id number] 11/29/2019 1:58 PM RADIATION DOSE METRICS: Total DLP (mGy-cm): 506.28 FINDINGS: Pulmonary arteries: Pulmonary artery is enlarged measures 4.1 cm. Correlation with pulmonary arterial hypertension. Filling defect in the right upper lobe segmental pulmonary artery. (series 2, image 212). Aorta: Atherosclerotic calcification of the aortic arch and descending thoracic aorta. Lungs: See Pulmonary arteries finding. Pleural spaces: Small right pleural effusion. Interlobular septal thickening in the right upper lobe with the thickening of the major fissure. There are large multiple masses in the left upper lobe which are pleural based with the largest measuring 3.9 x 2.6 cm. 2.2 cm pleural based mass in the left upper lobe. Heart: Cardiomegaly. Heart RV/LV ratio: RV to LV ratio measures 0.7. Lymph nodes: Unremarkable. No enlarged lymph nodes. Liver: Liver surface is nodular suspicious for cirrhotic changes. Bones/joints: Unremarkable. No acute fracture. Soft tissues: Unremarkable. CT/CT angio chest PE protcl [id number] IMPRESSION: 1. Multiple masses in the left lower lobe and 1 mass in the left upper lobe representing metastasis. 2. Interlobular septal thickening in the right upper lobe and major fissure. Finding may represent lymphangitic spread of cancer. 3. Small right pleural effusion. 4. Small pulmonary embolism involves the right upper lobe segmental pulmonary artery. No right ventricular strain. 5. Main pulmonary artery is enlarged. Correlation with pulmonary artery hypertension.
--- NOTE | 2021-12-07 14:44 | USR_ITS ---
PROCEDURE INFORMATION: Exam: US Duplex Lower Extremity Veins, Bilateral Exam date and time: 12/07/2021 3:19 PM Age: 85 years old Clinical indication: Swelling (edema) of limb; Lower extremity, bilateral; Additional info: Dvt TECHNIQUE: Imaging protocol: Real-time Duplex ultrasound of the bilateral extremities with 2-D romero scale, color Doppler flow and spectral waveform analysis with image documentation. Complete exam focused on the bilateral lower extremity veins. COMPARISON: CT abdomen pelvis wo/w [id number] 05/21/2021 10:36 AM FINDINGS: Right deep veins: Unremarkable. The common femoral, femoral, proximal profunda femoral and popliteal veins are patent without thrombus. Normal Doppler waveforms. Normal compressibility and/or augmentation response. Right superficial veins: Saphenofemoral junction is patent without thrombus. Left deep veins: Unremarkable. The common femoral, femoral, proximal profunda femoral and popliteal veins are patent without thrombus. Normal Doppler waveforms. Normal compressibility and/or augmentation response. Left superficial veins: Saphenofemoral junction is patent without thrombus. Soft tissues: Left popliteal fossa cyst measuring 2.7 x 1.2 x 4.3 cm. US/[place] [id number] IMPRESSION: No DVT of bilateral lower extremities. Left popliteal fossa cyst.
[2021-12-07 14:45] LABS: C Reactive Protein 14.7 mg/L (0.0-4.9); Ferritin 123 ng/mL (15-150); Iron 69 ug/dL (37-145)
[2021-12-07 14:50] LABS: Percent Saturation 34.5 % (20-50); Procalcitonin 0.09 ng/mL (0-0.5); Total Iron Binding Capacity 200 mcg/dl; Unsaturated Iron Binding 131 ug/dL (112-347)
[2021-12-07 14:54] LABS: D Dimer 2.93 ug/mIFEU (0-0.59)
--- NOTE | 2021-12-07 15:03 | PC.NURSE ---
to icu from er,, transfer to monitor noted stat order for ct to xray at this time
[2021-12-07] MEDS: iohexol 350 mg/mL 100 mL Btl IV (15:05)
[2021-12-07 15:08] LABS: Magnesium 2.5 mg/dL (1.7-2.3)
[2021-12-07] MEDS: amiodarone 200 mg Tablet 400 MG PO (15:11)
[2021-12-07] MEDS: cefepime 2,000 MG in sodium chloride 0.9% (plus) 50 ML 100 MG IV (15:12)
[2021-12-07] MEDS: sodium polystyrene sulfonate 15 gm/60 mL Btl PO (15:16)
[2021-12-07 15:29] LABS: Estmated Average Glucose 123; Hemoglobin A1C 5.9 % (4.0-6.0)
[2021-12-07] MEDS: pantoprazole 40 mg SDV IVP (15:55)
[2021-12-07] MEDS: azithromycin 500 MG in sodium chloride 0.9% 250 ML 250 MG IV (15:55)
[2021-12-07] MEDS: heparin drip 25,000 UNIT/500 ML PREMIX 19.05 UNIT IV (16:24)
[2021-12-07 17:14] LABS: Hematocrit 57.9 % (37.0-47.0); Hemoglobin 17.9 g/dL (11.5-15.3)
[2021-12-07] MEDS: aspirin 81 mg EC Tablet PO (17:29)
[2021-12-07] MEDS: ferrous sulfate EC 325 mg Tablet PO (17:29)
--- NOTE | 2021-12-07 17:29 | ECG_ITS ---
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 Measurements Intervals [place] Rate: 96 P: MD: QRS: -75 QRSD: 113 T: 92 QT: 348 QTc: 442 Interpretive Statements ATRIAL FIBRILLATION PATTERN CONSISTENT WITH PULMONARY DISEASE INCOMPLETE RIGHT BUNDLE BRANCH BLOCK [90+ ms QRS DURATION, TERMINAL R IN V1/V2, 40+ ms S IN I/aVL/V4/V5/V6] LEFT ANTERIOR FASCICULAR BLOCK [QRS AXIS <= -45, QR IN I, RS IN II] ABNORMAL QRS-T ANGLE [QRS-T AXIS DIFFERENCE > 60] Compared to ECG 12/07/2021 11:37:06 Incomplete right bundle-branch block now present Electronically Signed On 12-07-2021 19:09:51 CDT by Maria E Carrasco M.D. [email or web address]
[2021-12-07] MEDS: bumetanide 0.25 mg/mL SDV 4 mL 1 MG IVP (17:30)
[2021-12-07 17:35] LABS: Troponin 5 6HR 33.22 ng/L (0-10)
[2021-12-07 17:37] LABS: Troponin 5 6HR Delta 1.22 ng/L (0-12)
[2021-12-07] MEDS: budesonide 0.5 mg/2 mL Neb INHALATION (19:25)
[2021-12-07 21:59] LABS: Hematocrit 53.3 % (37.0-47.0); Hemoglobin 16.4 g/dL (11.5-15.3)
[2021-12-07 22:29] LABS: Partial Thromboplastin Time 82.8 SECONDS (23.9-36.7)
[2021-12-07] MEDS: heparin drip 25,000 UNIT/500 ML PREMIX 18 UNIT IV (22:40)
[2021-12-08] VITALS (98 sets, daily range): BP systolic 83–122; BP diastolic 52–88; PULSE 78–143; RESP 0–28; TEMP 36.7–37; O2SAT 84–97
[2021-12-08] MEDS: ipratropium-albuterol 3 mL Neb INHALATION ×5 (03:14→23:43)
[2021-12-08] MEDS: amiodarone 200 mg Tablet 400 MG PO ×2 (03:19→14:38)
[2021-12-08 03:49] LABS: ABG PH Result 7.28 (7.35-7.45); Arterial Blood Gas Hematocrit 51.6 % (37-47); Base Excess ABG 6.1 mmol/L (-2.0-2.0); Blood Gas Allen Test Pos; Blood Gas Sample Site Radial, right; Blood Gas Sample Type Arterial; HCO3 ABG 36.5 mmol/L (22-26); Oxygen Device NC; PO2 ABG 82.6 mmHg (80.0-100.0)
[2021-12-08 03:55] LABS: ABG PCO2 77.6 mmHg (35-45)
[2021-12-08 04:39] LABS: Basophils % 0.1 %; Hematocrit 55.3 % (37.0-47.0); Hemoglobin 16.7 g/dL (11.5-15.3); Lymphocytes # 0.4 10^3/uL (0.8-4.8); Lymphocytes % 4.9 %; Mean Corpuscular HGB Conc 30.2 g/dL (30.0-36.0); Mean Corpuscular Hemoglobin 32.2 pg (28.0-34.0); Mean Corpuscular Volume 106.6 fl (81-99); Mean Platelet Volume 10.9 fL (7.4-10.4); Monocytes # 0.4 10^3/uL (0.2-0.9); Monocytes % 5.7 %; Neutrophils # 6.82 10^3/uL (1.8-7.7); Neutrophils % 88.3 %; Nucleated Red Blood Cells % 0 %; Platelet Count 140 10^3/cmm (130-400); Red Blood Count 5.19 10^6/uL (4.1-5.3); Red Cell Distribution Width 16.2 % (12.1-15.1); White Blood Count 7.7 10^3/uL (4.0-10.0)
[2021-12-08 04:47] LABS: Partial Thromboplastin Time 45.5 SECONDS (23.9-36.7)
[2021-12-08 05:10] LABS: NT Pro B Type Natriuretic Pept 16314 pg/mL (0-450)
[2021-12-08 05:24] LABS: Alanine Aminotransferase 57 U/L (0-33); Albumin Level 3.5 g/dL (3.5-5.2); Alkaline Phosphatase 193 IU/L (35-105); Aspartate Amino Transferase 64 U/L (0-32); Blood Urea Nitrogen 27 mg/dL (8-23); C Reactive Protein 12.6 mg/L (0.0-4.9); Calcium 8.4 mg/dL (8.5-10.5); Carbon Dioxide 31 mmol/L (22-29); Chloride 99 mmol/L (98-107); Creatinine Clr Calc Pharmacy 49.3379; Globulin 2.3 g/dL (1.3-4.6); Glucose 149 mg/dL (65-115); Magnesium 2.1 mg/dL (1.7-2.3); Osmolality Calculated 298 mOsm/kg (285-295); Phosphorus 4.1 mg/dL (2.5-4.5); Sodium 140 mmol/L (136-145); Total Bilirubin 0.6 mg/dL (0.15-1.2); Total Protein 5.8 g/dL (6.6-8.7)
[2021-12-08 05:27] LABS: Anion Gap 15.3 (5-19); Potassium 5.3 mmol/L (3.5-5.1)
[2021-12-08] MEDS: heparin drip 25,000 UNIT/500 ML PREMIX 19 UNIT IV (05:30)
[2021-12-08] MEDS: cholecalciferol (vitamin D3) 1,000 unit Tablet 2000 UNIT PO (05:47)
[2021-12-08] MEDS: ferrous sulfate EC 325 mg Tablet PO ×2 (07:38→16:30)
[2021-12-08] MEDS: dilTIAZem 60 mg Tablet PO (08:13)
[2021-12-08] MEDS: atorvastatin 40 mg Tablet 20 MG PO (08:13)
[2021-12-08] MEDS: acetaminophen 325 mg Tablet 650 MG PO (08:14)
[2021-12-08] MEDS: budesonide 0.5 mg/2 mL Neb INHALATION ×2 (08:51→20:12)
[2021-12-08] MEDS: dilTIAZem 30 mg Tablet PO ×2 (09:20→09:26)
[2021-12-08] MEDS: bumetanide 0.25 mg/mL SDV 4 mL 1 MG IVP (09:23)
--- NOTE | 2021-12-08 09:35 | P.PN_ITS ---
Subjective Subjective: Patient was seen this morning, she tells me that she had a restless night, she had difficulty with the BiPAP mask, trouble falling asleep, she still is digesting the information I told her yesterday about her lung masses, likely lung malignancy and pulmonary emboli denies any bloody or black stools, denies any hematemesis Vitals/I&O/Wt Last Vital Signs Temp 98.6 F 12/08/21 08:00 Pulse 108 H 12/08/21 09:00 Resp 16 12/08/21 08:52 BP 106/78 12/08/21 08:00 Pulse Ox 93 12/08/21 09:00 12/07/21 12/08/21 12/08/21 22:59 06:59 14:59 Intake Total 1499.38 / 1499.38 603 / 2102.38 Output Total 850 / 850 200 / 1050 Balance 649.38 / 649.38 403 / 1052.38 Weight last 48 hrs Weight 68.039 kg Weight 68.039 kg Physical Exam Const: COMMON NORMALS: no acute distress and patient oriented x3 Neck/C-Spine: COMMON NORMALS: no JVD Resp: COMMON NORMALS: normal respiratory effort, No retractions, No use of accessory muscles and clear to auscultation bilaterally AUSCULTATION: clear to auscultation bilaterally Cardio: COMMON NORMALS: no JVD, regular rate, regular rhythm, S1 normal heart sound present and S2 normal heart sound present RATE: regular rate RHYTHM: regular rhythm HEART SOUNDS: S1 normal heart sound present and S2 normal heart sound present GI: COMMON NORMALS: Normal to inspection, nondistended, normoactive bowel sounds present, Soft to palpation, non-tender and No hepatosplenomegaly present PALPATION: Yes Soft to palpation and Yes No hepatosplenomegaly present Extremity: NARRATIVE EXTREMITY EXAM: 1+ pitting edema bilateral lower extremity Neuro: COMMON NORMALS: patient oriented x3 Psych: COMMON NORMALS: mental status grossly normal Urinary Catheter Management: Zaidi: Cath Placed During This Visit: yes Reason for Continuing Indwelling Catheter: Accurate Measurement of Urinary Output in Critically Ill Patients Urinary Catheter Date of Insertion: 12/07/21 Urinary Catheter Time of Insertion: 17:00 Data : 12/08/21 04:12 12/08/21 04:12 Micro: Microbiology 12/07/21 17:00 Gram Stain - Final Sputum - Expectorated Sputum 12/07/21 14:12 Legionella Urinary Antigen - Final Urine,Voided 12/07/21 14:12 Bacterial Antigens - Final Urine,Clean Catch 12/07/21 14:28 Blood Culture - Preliminary Blood SPECIMEN COLLECTED 12/07/21 14:32 Blood Culture - Preliminary Blood SPECIMEN COLLECTED A&P Assessment and plan (1) Pulmonary embolism: Status: Acute (2) Lung mass: Status: Acute (3) Acute respiratory failure with hypoxia: Status: Acute (4) CHF exacerbation: Status: Acute (5) COPD exacerbation: Status: Acute (6) Pneumonia: Status: Acute (7) Anemia: Status: Acute (8) Carotid artery disease: Status: Acute Qualifiers: Carotid artery disease type: unspecified Laterality: bilateral Qualified Code(s): I77.9 - Disorder of arteries and arterioles, unspecified (9) Essential hypertension: Status: Chronic (10) Hyperlipidemia: Status: Chronic Qualifiers: Hyperlipidemia type: mixed hyperlipidemia Qualified Code(s): E78.2 - Mixed hyperlipidemia (11) Lung nodule: Status: Acute (12) Acute on chronic respiratory failure with hypoxia and hypercapnia: Status: Acute (13) New onset a-fib: Status: Acute (14) NSTEMI (non-ST elevated myocardial infarction): Status: Acute Plan Acute hypoxic hypercarbic respiratory failure -Multifactorial -COPD exacerbation, continues to smoke, over 70 years -CHF exacerbation, bilateral extremity edema -Viral URI, enterovirus PCR positive -Lung masses on the left -Pulmonary emboli -1. Multiple masses in the left lower lobe and 1 mass in the left upper lobe representing metastasis. 2. Interlobular septal thickening in the right upper lobe and major fissure. Finding may represent lymphangitic spread of cancer. 3. Small right pleural effusion. 4. Small pulmonary embolism involves the right upper lobe segmental pulmonary artery. No right ventricular strain. 5. Main pulmonary artery is enlarged. Correlation with pulmonary artery hypertension. -PCO2 76, pH 7.28, was compliant with BiPAP overnight Plan -We will move out of ICU today -Echocardiogram pending -Continue BiPAP as needed during the day, schedule during the night -Continue Solu-Medrol 40 every 8 hours -DuoNeb, budesonide -Daily dose Bumex, maintain mag greater than 2, potassium greater than 4 -Cefepime, azithromycin -Continue heparin drip, monitor hemoglobin closely, monitor hemodynamics -Sputum cultures, blood cultures, urine bacterial antigens -DNR/DNI -SCDs for DVT prophylaxis, heparin drip for DVT prophylaxis -We will discuss goals of care for lung masses, Lung masses 1. Multiple masses in the left lower lobe and 1 mass in the left upper lobe representing metastasis. 2. Interlobular septal thickening in the right upper lobe and major fissure. Finding may represent lymphangitic spread of cancer. -She was also found to have a left ovarian cystic lesion 2.1 x 1[address] 05/21/2021 -She was also found to have a inferolateral solid mass right breast 2.0 x 2[address] 11/29/2019 -Might represent primary lung cancer, or metastatic from breast or ovary, or additional malignancies -We will have to discuss with patient about goals of care, if she wants to have further work-up, possible biopsy, possible treatment Right upper lobe pulmonary embolism, continue heparin drip monitor hemoglobin closely New onset A. fib -Has been given 5 Metroprolol in the ER -Blood pressures are soft start amiodarone 400 twice daily -Monitor heart rate -Check mag, TSH -Heparin drip Elevated troponins, -Likely secondary to supply demand ischemia -Serial troponins, serial EKGs, telemetry monitoring -Continue aspirin, statin, Hyperkalemia, received 1 dose of Bumex History of diastolic CHF, as above History of COPD as above History of aortic stenosis, Bilateral lower extremity edema, likely fluid overload History of iron deficient anemia, acute anemia, hemoglobin down to 5.9, now over 17, no complaints of bloody black stools, continue iron, monitor hemoglobin as is on heparin drip History of lower GI bleed EGD and colonoscopy colonoscopy during May hospitalization revealed colitis, and a small amount of blood in the ascending colon a proximal transverse colon, Hemoccult positive, hemoglobin down to the 5, required transfusion, she is on iron as outpatient, denies any recurrent bloody or black stools. -Monitor hemoglobin on heparin drip -Protonix for now Attestations Medical Necessity Statement*: Patient requires hospitalization for lung masses, new onset A. 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
[2021-12-08 10:11] LABS: Hematocrit 51.8 % (37.0-47.0); Hemoglobin 16.1 g/dL (11.5-15.3)
[2021-12-08] MEDS: dilTIAZem 60 mg Tablet 90 MG PO ×2 (14:40→19:52)
[2021-12-08] MEDS: pantoprazole 40 mg SDV IVP (14:42)
--- NOTE | 2021-12-08 14:44 | USCV_ITS ---
Sneha Sanchez Age: 85 Gender: F : 1935 Exam Date: 12/08/2021 09:11 Ordering Phys: Saurabh Lawler MD Technologist: Rashida Michael Exam Location: [facility] [place] Indication: SOB BP: 94 / 56 HR: 117 Rhythm: Sinus Technical Quality: Adequate MEASUREMENTS (Male / Female) Normal Values 2D ECHO LV Diastolic Diameter PLAX 3.7 cm 4.2 - 5.9 / 3.9 - 5.3 cm LV Systolic Diameter PLAX 2.2 cm LV Chamber Size 3.4 cm IVS Diastolic Thickness 1.4 cm 0.6 - 1.0 / 0.6 - 0.9 cm IVS Systolic Thickness 1.7 cm LVPW Diastolic Thickness 1.5 cm 0.6 - 1.0 / 0.6 - 0.9 cm LVPW Systolic Thickness 1.7 cm RV Chamber Size 3.9 cm LVOT Diameter 2.0 cm LV Ejection Fraction 2D Teich 72.6 % LV Ejection Fraction MOD 2C 53.7 % LV Ejection Fraction 2C AL 52.9 % LA Diameter 4.7 cm LA Width 3.8 cm LA Height 6.1 cm RA Width 4.3 cm RA Height 4.9 cm Aorta at Sinotubular Diameter 2.1 cm M-MODE Aortic Annulus Diameter 3.1 cm LA Ao Ratio MM 1.6 MV E Point Septal Separation 1.4 cm DOPPLER AV Peak Velocity 278.3 cm/s LVOT Peak Velocity 88.0 cm/s AV Area Cont Eq vti 0.9 cm squared AV Area Cont Eq pk 1.0 cm squared MV Peak Velocity 142.0 cm/s MV Area PHT 1.9 cm squared MV E' Velocity 77.0 cm/s Mitral E to MV E' Ratio 16.4 Mitral E to LV E' Lateral Ratio 14.8 Mitral E to LV E' Septal Ratio 18.2 TR Peak Velocity 286.2 cm/s TR Peak Gradient 32.8 mmHg TR Mean Velocity 231.9 cm/s TR Mean Gradient 23.7 mmHg TR Velocity Time Integral 88.4 cm TV Peak E Velocity 64.0 cm/s Right Atrial Pressure 15.0 mmHg Pulmonary Artery Systolic Pressu 47.8 mmHg PV Peak Velocity 73.7 cm/s RV Acceleration Time 0.2 s RV Ejection Time 0.4 s RV AcT/ET 0.5 FINDINGS Left Ventricle Moderate left ventricular hypertrophy. Diffuse hypokinesia of the left ventricle with ejection fraction of around 40% (visual).Grade III/IV diastolic dysfunction (restrictive filling pattern), severely elevated filling pressures. Right Ventricle The right ventricle is normal in size and function. Right Atrium Moderately increased right atrial size. Left Atrium Moderately increased left atrial size. Mitral Valve Severe mitral annular calcification. Mild mitral valve regurgitation. Mild mitral valve stenosis with a valve area 1.9 cm2 squire Aortic Valve Severe low gradient aortic valve stenosis, mean gradient 16 mmHg, peak gradient of 33 and a valve area of .89cm2. Peak velocity of 2.87 m/s Tricuspid Valve Moderate tricuspid valve regurgitation. Estimated pulmonary artery peak systolic pressure of 48 mmHg Pulmonic Valve Trace pulmonary valve regurgitation. Pericardium Normal pericardium without effusion. Aorta Normal aortic annulus size. CONCLUSIONS Moderate left ventricular hypertrophy. Diffuse hypokinesia of the left ventricle with ejection fraction of around 40% (visual).Grade III/IV diastolic dysfunction (restrictive filling pattern), severely elevated filling pressures. Severe low gradient aortic valve stenosis, mean gradient 16 mmHg, peak gradient of 33 and a valve area of .89cm2. Peak velocity of 2.87 m/s. Severe mitral annular calcification. Mild mitral valve regurgitation. Mild mitral valve stenosis with a valve area 1.9 cm2 squire Moderate biatrial enlargement Moderate tricuspid valve regurgitation. Estimated pulmonary artery peak systolic pressure of 48 mmHg. There is no pericardial effusion. There are no intracardiac masses. Mid to the study from 05-02-2021 there is some worsening of the aortic valve stenosis and drop in the LV ejection fraction. Dr Maria E Carrasco MD [facility] (Electronically Signed) Final Date: 08 December 2021 21:15 S
[2021-12-08] MEDS: cefepime 2,000 MG in sodium chloride 0.9% (plus) 50 ML 100 MG IV (15:17)
[2021-12-08] MEDS: azithromycin 500 MG in sodium chloride 0.9% 250 ML 250 MG IV (15:26)
[2021-12-08 15:48] LABS: Hematocrit 49.1 % (37.0-47.0); Hemoglobin 15.5 g/dL (11.5-15.3)
[2021-12-08 16:17] LABS: Partial Thromboplastin Time 84.7 SECONDS (23.9-36.7)
[2021-12-08] MEDS: aspirin 81 mg EC Tablet PO (16:30)
[2021-12-08] MEDS: heparin drip 25,000 UNIT/500 ML PREMIX 18 UNIT IV (19:01)
[2021-12-08 22:30] LABS: Hematocrit 47.3 % (37.0-47.0); Hemoglobin 14.9 g/dL (11.5-15.3)
[2021-12-08 22:42] LABS: Partial Thromboplastin Time 65.8 SECONDS (23.9-36.7)
[2021-12-09] VITALS (24 sets, daily range): BP systolic 104–149; BP diastolic 59–84; PULSE 92–119; RESP 3–26; TEMP 36.5–36.7; O2SAT 82–95
[2021-12-09] MEDS: amiodarone 200 mg Tablet 400 MG PO (01:58)
[2021-12-09] MEDS: dilTIAZem 60 mg Tablet 90 MG PO (01:59)
[2021-12-09] MEDS: ipratropium-albuterol 3 mL Neb INHALATION (03:52)
[2021-12-09 04:18] LABS: Basophils % 0.3 %; Hematocrit 44.1 % (37.0-47.0); Hemoglobin 14.3 g/dL (11.5-15.3); Lymphocytes # 0.3 10^3/uL (0.8-4.8); Lymphocytes % 1.8 %; Mean Corpuscular HGB Conc 32.4 g/dL (30.0-36.0); Mean Corpuscular Hemoglobin 32.9 pg (28.0-34.0); Mean Corpuscular Volume 101.6 fl (81-99); Monocytes # 0.8 10^3/uL (0.2-0.9); Monocytes % 5.1 %; Neutrophils # 13.85 10^3/uL (1.8-7.7); Neutrophils % 92.3 %; Nucleated Red Blood Cells % 0 %; Platelet Count 149 10^3/cmm (130-400); Red Blood Count 4.34 10^6/uL (4.1-5.3); Red Cell Distribution Width 15.5 % (12.1-15.1)
[2021-12-09 04:31] LABS: ABG PCO2 57.5 mmHg (35-45); ABG PH Result 7.38 (7.35-7.45); Arterial Blood Gas Hematocrit 43.1 % (37-47); Base Excess ABG 6.7 mmol/L (-2.0-2.0); Blood Gas Allen Test Pos; Blood Gas Sample Site Radial, right; Blood Gas Sample Type Arterial; HCO3 ABG 33.7 mmol/L (22-26); Oxygen Device NC; PO2 ABG 54.9 mmHg (80.0-100.0)
[2021-12-09 04:49] LABS: NT Pro B Type Natriuretic Pept 11217 pg/mL (0-450); Procalcitonin 0.15 ng/mL (0-0.5)
[2021-12-09 05:00] LABS: Alanine Aminotransferase 58 U/L (0-33); Albumin Level 3.3 g/dL (3.5-5.2); Alkaline Phosphatase 157 IU/L (35-105); Anion Gap 13.6 (5-19); Aspartate Amino Transferase 85 U/L (0-32); Blood Urea Nitrogen 37 mg/dL (8-23); C Reactive Protein 8.1 mg/L (0.0-4.9); Calcium 8.3 mg/dL (8.5-10.5); Carbon Dioxide 31 mmol/L (22-29); Chloride 93 mmol/L (98-107); Globulin 2.4 g/dL (1.3-4.6); Glucose 166 mg/dL (65-115); Magnesium 2.1 mg/dL (1.7-2.3); Osmolality Calculated 286 mOsm/kg (285-295); Phosphorus 2.8 mg/dL (2.5-4.5); Potassium 5.6 mmol/L (3.5-5.1); Sodium 132 mmol/L (136-145); Total Bilirubin 0.7 mg/dL (0.15-1.2); Total Protein 5.7 g/dL (6.6-8.7)
[2021-12-09 05:05] LABS: Partial Thromboplastin Time 51.6 SECONDS (23.9-36.7)
[2021-12-09] MEDS: cholecalciferol (vitamin D3) 1,000 unit Tablet 2000 UNIT PO (05:26)
[2021-12-09] MEDS: acetaminophen 325 mg Tablet 650 MG PO (05:26)
[2021-12-09] MEDS: heparin 5,000 unit/mL INJ 1 mL IV (05:46)
--- NOTE | 2021-12-09 07:10 | PC.NURSE ---
Shift Summary Patient had an uneventful shift-she remains on 5LNC. Heparin gtt is infusing per protocol, please see MAR for infusion rate. Zaidi catheter drained 230 mls of urine overnight. No wounds or skin issues noted at this time.
--- NOTE | 2021-12-09 09:16 | ECG_ITS ---
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 Measurements Intervals [place] Rate: 119 P: MO: QRS: -62 QRSD: 126 T: 75 QT: 331 QTc: 466 Interpretive Statements ATRIAL FIBRILLATION WITH RAPID VENTRICULAR RESPONSE WITH ABERRANT CONDUCTION OR VENTRICULAR PREMATURE COMPLEXES LEFT ANTERIOR FASCICULAR BLOCK [QRS AXIS <= -45, QR IN I, RS IN II] POSSIBLE ANTERIOR MYOCARDIAL INFARCTION , PROBABLY OLD [30 ms Q WAVE IN V3/V4, OR R < 0.2 mV IN V4] INTERPRETATION BASED ON A DEFAULT AGE OF 40 YEARS Compared to ECG 12/07/2021 13:19:56 Aberrant conduction of supraventricular beat(s) now present Ventricular premature complex(es) now present Myocardial infarct finding now present Incomplete right bundle-branch block no longer present Electronically Signed On 12-09-2021 22:51:42 CDT by Maria E Carrasco M.D. [id number]
--- NOTE | 2021-12-09 09:20 | PC.NURSE ---
Pt change While Phys was rounding. pt became diaphoretic and complained of vision changes. Pt was not able to read the care board. Pt also c/o nausea. Zofran was given prior. Pt's MAP read in the 50's, Phys ordered LR bolus of 500. Bolus started. Pt's vision improved pretty quickly. Phys is reveiwing notes to determine if CT needs ordered.
--- NOTE | 2021-12-09 09:43 | PC.CHAP ---
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 [] Patient/Family/Request visit [] Outpatient visit [] Follow-up visit [] Physician referral [] Code/Alert [x] Routine visit [] Staff referral [] Actively dying [] Patient sleeping [] Family support [] [] Out of room [] Palliative care [] [] Receiving care in room [] Pre-surgical visit [] Trauma [] Long length of stay [x] ICU visit [] Other: Relational/Emotional Strength [] Patient feels connected with others/family/visitors/staff [] Distress [] Loneliness/isolation [] Abandonment Spirituality of Patient [] Person of Joelle [] Attends Scientology of their Joelle [] Believes in Prayer [] Reads Bible or Mandaeism materials [] There are Spiritual issues to be addressed 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 Interventions [x] Prayer [x] Active listening [x] Non-anxious presence [x] Spiritual/emotional support [] Crisis/trauma care [] Spiritual counseling [] Bereavement support [] Provided bereavement packet [] Provided Bible/devotional materials [] Provided toy/stuffed animal, coloring book to patient or family member [] Provided Communion [] Anointing/[place] [] Salvation [x] Completed spiritual assessment [] Other: Impact on Illness or Injury [] Angry [] Fearful [] Anxious [] Often cries [] Exhaustion [] Unable to work [] Unable to attend shinto [] Unable to walk/stand [] Unable to read [] Unable to drive [] Unable to eat/drink [] Unable to sleep [] Unable to be with family [] Patient intubated [] Other: Summary didnt sleep well... not feeling well at all Time spent with patient 10 min
[2021-12-09 09:45] LABS: Hematocrit 35.3 % (37.0-47.0); Hemoglobin 11.3 g/dL (11.5-15.3)
[2021-12-09] MEDS: lactated ringers 500 ML 999 ML IV (10:23)
--- NOTE | 2021-12-09 10:23 | XRR_ITS ---
PROCEDURE INFORMATION: Exam: XR Abdomen Exam date and time: 12/09/2021 10:30 AM Age: 85 years old Clinical indication: Vomiting; Abdominal pain; Generalized; Additional info: Pain, vomiting, assess for free air TECHNIQUE: Imaging protocol: XR of the abdomen. Views: 2 Views. Upright and supine views. COMPARISON: 1. CT abdomen pelvis wo/w [id number] 05/21/2021 10:[address] examination 12/07/2021 FINDINGS: Gastrointestinal tract: Normal. No bowel dilation. There is a moderate colonic fecal stasis in the right lower quadrant. Intraperitoneal space: Normal. No free air. Bones/joints: Unremarkable for age. Soft tissues: Chest: There is a mass lesion in the left lateral chest wall this finding measures 42 mm x 35.7 mm. This finding was documented on prior chest CT examination XR/XR acute abdomen series [id number] IMPRESSION: 1. No acute findings. 2. Left lateral chest wall mass 3. Negative for evidence of pneumoperitoneum
--- NOTE | 2021-12-09 10:25 | PM.PN ---
Subjective Subjective: This morning during my visit she voices feeling weak, she is nauseated, regurgitating/vomiting small amounts of gastric secretions. Breakfast is in for her but she is holding onto a basin. Stating her vision is feeling out. Recycle blood pressure noted low, map 50, difficult to obtain oxygen saturation made more difficult due to nail azeri. She is reclined in bed, and tilted to the side in case needs to vomit. Received 500 mL fluid bolus. O2 probe changed, sats in the high 80s. O2 flow increased. Saturation improving to higher 90s. She states that she may have vomited last night. Noted some abdominal tenderness, mild diffuse, but appears worse on the left side. Denies vertigo or dizziness. Denies headache. Denies chest pain or pressure. Vitals/I&O/Wt Last Vital Signs Temp 98.1 F 12/09/21 08:00 Pulse 105 H 12/09/21 09:02 Resp 22 H 12/09/21 09:02 BP 116/60 12/09/21 08:00 Pulse Ox 94 12/09/21 09:02 12/08/21 12/09/21 12/09/21 22:59 06:59 14:59 Intake Total 1033.55 / 1633.55 593.5 / 2227.05 Output Total 200 / 500 230 / 730 50 / 50 Balance 833.55 / 1133.55 363.5 / 1497.05 -50 / -50 Weight last 48 hrs Weight 68.039 kg Weight 68.039 kg Physical Exam Const: COMMON NORMALS: alert GENERAL APPEARANCE: cooperative and other (weak); not comfortable ORIENTATION/CONSCIOUSNESS: Yes awake HENMT: COMMON NORMALS: normocephalic, EAC's normal, Normal external nose present and moist oral mucous membranes HEAD & SCALP: normocephalic NOSE: Normal external nose present EXTERNAL AUDITORY CANAL: EAC's normal Neck/C-Spine: COMMON NORMALS: no meningeal signs Chest: CHEST: Yes Symmetrical chest wall rise Resp: COMMON NORMALS: clear to auscultation bilaterally AUSCULTATION: clear to auscultation bilaterally Cardio: COMMON NORMALS: regular rate, regular rhythm and No murmurs present (Cardio) RATE: regular rate RHYTHM: regular rhythm GI: COMMON NORMALS: Soft to palpation INSPECTION: Yes abdominal distension (mild) PALPATION: Yes Soft to palpation and Yes Tenderness to palpation present (GI) Extremity: COMMON NORMALS: no pedal edema Neuro: COMMON NORMALS: moves all extremities SENSORIUM/ORIENTATION: Yes alert MENINGEAL SIGNS: Yes no meningeal signs Psych: COMMON NORMALS: mental status grossly normal Skin: COMMON NORMALS: no wounds RASHES: no rashes Urinary Catheter Management: Zaidi: Cath Placed During This Visit: yes Reason for Continuing Indwelling Catheter: Accurate Measurement of Urinary Output in Critically Ill Patients Urinary Catheter Date of Insertion: 12/07/21 Urinary Catheter Time of Insertion: 17:00 Data : 12/09/21 10:30 12/09/21 04:00 Micro: Microbiology 12/07/21 17:00 Gram Stain - Final Sputum - Expectorated Sputum Sputum Culture - Preliminary 12/07/21 14:28 Blood Culture - Preliminary Blood NEGATIVE TO DATE 12/07/21 14:32 Blood Culture - Preliminary Blood NEGATIVE TO DATE A&P Assessment and plan (1) Shock: Possibly septic shock, today noted increasing leukocytosis up to 15,000, although some of this also may be secondary to steroid. Source possibly with aspiration pneumonia after she reports episode of vomiting last night, possibly intra-abdominal with tenderness. Noted tachycardia, although irregular rate and rhythm with atrial fibrillation. EKG obtained. IVC on ultrasound with mild change in diameter, not distended, so was given 500 mL IV fluid bolus, with repeat 500 now subsequently while sitting up for pressor. Lactic acid, blood cultures requested. Requested stat H&H given she continues on heparin drip. Cardizem on hold, noted mild acute kidney injury, creatinine 1.1. Hold Cardizem. Requested CT chest abdomen pelvis, although for now not yet stable enough to go, first will obtain chest x-ray and abdominal series. Antibiotic for now changed to primaxin. Discussed with her son Quincy sudden change to serious/ condition, I could not reach her daughter Beth. Status: Acute (2) Pulmonary embolism: Check Hb. On heparin drip. Status: Acute (3) Lung mass: From what I can tell she would not want to pursue additional evaluation or treatment of potentially metastatic cancer incidentally noted. I also see preparations were being considered for transition also to hospice care possibly at home or at a nursing home facility also with discussions with family. Status: Acute (4) Acute respiratory failure with hypoxia: Now with possible aspiration pneumonia superimposed on prior pneumonia, antibiotic changed to Primaxin. Reported vomiting last night. Pending assessment by CT, for now requested chest x-ray. Continue oxygen support. Blood cultures were requested as above. Noted also enterorhinovirus detected on presentation by PCR. Status: Acute (5) CHF exacerbation: Lungs were clear this morning, no crackles. JVD by bedside ultrasound with some changes in diameter, not fully distended. Was given bolus due to shock. Did not receive full 30 cc/kg for septic shock due to noted diminished EF, diastolic dysfunction. Risk of fluid overload. Status: Acute (6) COPD exacerbation: Continues on steroid, antibiotics for now. Status: Acute (7) Pneumonia: Status: Acute (8) Anemia: Check H&H stat. Currently on anticoagulation. Iron supplementation. Status: Acute (9) Carotid artery disease: Status: Acute Qualifiers: Carotid artery disease type: unspecified Laterality: bilateral Qualified Code(s): I77.9 - Disorder of arteries and arterioles, unspecified (10) Essential hypertension: Status: Chronic (11) Hyperlipidemia: Status: Chronic Qualifiers: Hyperlipidemia type: mixed hyperlipidemia Qualified Code(s): E78.2 - Mixed hyperlipidemia (12) Lung nodule: Status: Acute (13) Acute on chronic respiratory failure with hypoxia and hypercapnia: Status: Acute (14) New onset a-fib: Amiodarone. To due to hypotension, JESSI, hold Cardizem for now. On heparin drip. Check H&H. Status: Acute (15) NSTEMI (non-ST elevated myocardial infarction): Status: Acute Plan Hyperkalemia: Low potassium diet History of diastolic CHF, as above History of COPD as above History of aortic stenosis, History of lower GI bleed EGD and colonoscopy colonoscopy during May hospitalization revealed colitis, and a small amount of blood in the ascending colon a proximal transverse colon, Hemoccult positive, hemoglobin down to the 5, required transfusion, she is on iron as outpatient, denies any recurrent bloody or black stools. -Monitor hemoglobin on heparin drip -Protonix for now Attestations Medical Necessity Statement*: Continue admission for assessment and management of shock Critical Care Time: The high probability of a clinically significant, sudden or life threatening deterioration of the patient's hemodynamic, respiratory system(s) required my full and direct attention, intervention and personal management. The critical care time is as shown. This time is in addition to time spent performing any reported procedures but includes the following: x Data and vital sign review and interpretation x Patient assessment, examination and intervention x Documentation x Medication orders and management Critical Care Time (min): 60 Coding Level of Care Code Acute Core Inspector for Chg Fwd Diagnoses Pulmonary embolism I26.99 Lung mass R91.8 Acute respiratory failure with hypoxia J96.01 CHF exacerbation I50.9 COPD exacerbation J44.1 Pneumonia J18.9 Anemia D64.9 Carotid artery disease I77.9 Carotid artery disease type: unspecified Laterality: bilateral Essential hypertension I10 Hyperlipidemia E78.2 Hyperlipidemia type: mixed hyperlipidemia Lung nodule R91.1 Acute on chronic respiratory failure with hypoxia and hypercapnia J96.21; J96.22 New onset a-fib I48.91 NSTEMI (non-ST elevated myocardial infarction) I21.4 Shock R57.9
[2021-12-09 10:40] LABS: Hemoglobin 11.1 g/dL (11.5-15.3)
[2021-12-09] MEDS: HYDROmorphone 1 mg/mL INJ 1 mL 0.4 MG IVP (12:19)
[2021-12-09] MEDS: ondansetron 2 mg/ML SDV 2 mL 4 MG IVP (12:23)
[2021-12-09 13:30] LABS: Lactate (Lactic Acid level) 6.6 mmol/L (0.5-2.2)
--- NOTE | 2021-12-09 14:30 | PC.NURSE ---
TOD Pt went asystole at 1403. Nursing was at pt's bedside. All IV medicines were stopped. No apical verified by 2 nurses. MTS notified. Family notified and are on their way.
[2021-12-09 17:31] LABS: Partial Thromboplastin Time 189.5 SECONDS (23.9-36.7)
--- NOTE | 2021-12-09 21:42 | P.DES_ITS ---
Discharge Providers DDS Date of Admission: 12/07/21 13:11 Date Summary Completed: 12/09/21 Attending Provider at Admission: Saurabh Lawler MD Attending Provider at Discharge: Everton Pizarro Primary Care Provider: MEENU Blum Diagnoses Hospital Diagnoses (1) Shock: (2) Pulmonary embolism: (3) Lung mass: (4) Acute respiratory failure with hypoxia: (5) CHF exacerbation: (6) COPD exacerbation: (7) Pneumonia: (8) Anemia: (9) Carotid artery disease: Qualifiers: Carotid artery disease type: unspecified Laterality: bilateral Qualified Code(s): I77.9 - Disorder of arteries and arterioles, unspecified (10) Essential hypertension: (11) Hyperlipidemia: Qualifiers: Hyperlipidemia type: mixed hyperlipidemia Qualified Code(s): E78.2 - Mixed hyperlipidemia (12) Lung nodule: (13) Acute on chronic respiratory failure with hypoxia and hypercapnia: (14) New onset a-fib: (15) NSTEMI (non-ST elevated myocardial infarction): Reason for Visit Reason for Visit WEAKNESS; SOB Summary Summary Summary: 85-year-old lady previously with diastolic heart failure, moderate aortic stenosis, bilateral carotid artery stenosis, current smoker, with hypertension, history of COPD, history of GI bleed, history of lung nodule, was admitted after presenting with weakness, several falls, shortness of breath, productive cough. Found to be in hypoxic respiratory failure saturations in the 80s, requiring up to 10 L of oxygen, with new onset atrial fibrillation with RVR, with COPD exacerbation, with consideration of possible pneumonia, but with noted new left upper and lower lobe pulmonary nodules and irregular opacifications, metastatic disease not excluded, inferolateral solid mass of right breast mass incidentally noted as well. Prior history also of GI bleed for which she had EGD and colonoscopy revealing colitis. Hemoglobin was as low as 5 for which she had received transfusion. Was treated empirically with Levaquin and Flagyl for colitis. Chose not to pursue histopathological evaluation of noted pulmonary nodule during that hospitalization. During current hospitalization with concern for possible postobstructive pneumonia with noted on CTA chest multiple masses in left lower lobe, 1 mass in left upper lobe due to metastatic disease, interlobular septal thickening in the right upper lobe and major fissure, possible lymphangitic spread of cancer, small right pleural effusion, was treated conservatively with medical therapy with IV antibiotics with cefepime, azithromycin, received IV steroids as well, inhaled steroids. Received transient BiPAP support due to element of hypercapnic failure. Was maintained on PPI. Initially treated with diuretic for possible diastolic CHF. Noted small PE in the right upper lobe segmental pulmonary artery. On heparin drip. With new onset atrial fibrillation was treated with IV metoprolol, subsequently transitioned to p.o. amiodarone. Mild troponin elevation on presentation was thought to be secondary to demand ischemia due to RVR, acute pneumonia. Received Kayexalate for hyperkalemia. W as additionally assessed by echocardiogram with noted now worsened ejection fraction 40%, grade 3 diastolic dysfunction, newly worsened aortic stenosis, now low gradient severe aortic stenosis. On discussions of goals of care she had again declined any invasive interventions to further diagnose or manage any of the associated conditions. Arrangements were going to be underway for hospice care with decision regarding location. Was going to be transferred to cardiac stepdown, however, this morning reported feeling unwell, nauseated, regurgitating small amounts of yellow/green gastric contents. Reports she had vomited last night. This morning overall feeling very weak, with blurred vision, was found to be hypotensive, mean arterial pressure in the 50s. Tachycardia 100-115, irregular with atrial fibrillation. Denies chest pain or pressure. Noted to have worsened hypoxia, requiring up to 5 L nasal cannula oxygen. Initially received IV fluid bolus for hypotension with nondistended w ith some fluctuance in IVC on bedside US. Antibiotic changed to Primaxin. Blood cultures and lactic acid requested given possible septic shock with aspiration pneumonia or intra-abdominal process, with noted rise in leukocytosis up to 15,000, rising procalcitonin. EKG with atrial fibrillation, no STEMI. Was complaining of abdominal tenderness. Chest x-ray, abdominal series requested, with earlier noted left chest wall mass, otherwise no acute findings. No free air. Hemoglobin levels repeated. Despite initial bolus, still become progressively hypotensive. Levophed ordered, in the meantime given additional bolus but not given 30 cc/kg due to noted worsened cardiac function. Change in condition discussed with her son as her daughter could not be reached initially. Her son wanted to continue attempts to stabilize with medical therapies until further discussion can take place with other family members. Despite increase in Levophed up to 30 mcg/min blood pressures continue to trend down. Vasopressin added. Lactic acid returned 6.6. Persistently low blood pressures, epi drip was also requested. Recalcitrant hypotension in the setting of severe aortic stenosis, possible septic shock likely with component of cardiogenic shock, possible bowel ischemia, possible aortic dissection other differential and with consideration of CT scan, although was not stable enough to try to transfer, and also not a candidate for surgical intervention. Once able to reach her daughter Selena, on discussion she let us know her mother would not have wanted further escalation of care and life support. She was on the way to come see her. Requested if possible to maintain pressors but without further increase. Mrs. Sanchez not long after, not in distress, with time of noted at 1403. Her daughter was notified of her passing, and will be making arrangements. Additional Data Autopsy requested?: No Advance directives?: Yes Discharge Plan Discharge Patient Disposition: Condition: Prescriptions: No Action aspirin 81 mg tablet,delayed release (DR/EC) 81 mg PO QPM 0RF cholecalciferol (vitamin D3) 2,000 unit tablet 2,000 unit PO QAM 0RF Geritol Complete 16 mg iron- 0.38 mg tablet 1 tab PO QAM 0RF diltiazem HCl 90 mg capsule,extended release 12 hr See Rx Instructions .ROUTE .COMPLEX Qty: 180 1RF Dose Instruction: TAKE 1 CAPSULE BY MOUTH TWICE DAILY Rx Instructions: TAKE 1 CAPSULE BY MOUTH TWICE DAILY docusate sodium 250 mg capsule 250 mg PO DAILY Qty: 90 1RF albuterol sulfate [ProAir HFA] 90 mcg/actuation HFA aerosol inhaler 2 puff inhalation Q6H PRN (Reason: shortness of breath or wheezing) Qty: 6.7 2RF levofloxacin 500 mg tablet 500 mg PO DAILY 7 Days Qty: 7 0RF ferrous sulfate 325 mg (65 mg iron) tablet See Rx Instructions .ROUTE .COMPLEX Qty: 270 0RF Dose Instruction: TAKE 1 TABLET BY MOUTH THREE TIMES DAILY Rx Instructions: TAKE 1 TABLET BY MOUTH THREE TIMES DAILY acetaminophen [Tylenol Extra Strength] 500 mg Tablet 500 mg PO BID@08,17 0RF furosemide 40 mg tablet 40 mg PO DAILY@13 0RF Rx Instructions: Take with 30mg to equal 70 mg once daily furosemide 20 mg tablet 30 mg PO DAILY@13 0RF Rx Instructions: Take with 40 mg once daily to equal 70 mg atorvastatin 20 mg tablet 20 mg PO DAILY Qty: 30 0RF omeprazole 20 mg capsule,delayed release(DR/EC) 20 mg PO DAILY Qty: 60 1RF Biofreeze Roll-On 1 applic topical BID PRN (Reason: Pain) 0RF potassium chloride 10 mEq tablet extended release 30 meq PO DAILY 0RF Referrals: Ermelinda Hopson FNP [Primary Care Provider] - Patient Instructions: Opioid Safety DS Attestations Time Spent in /Discharge Care*: greater than 30 min Quality - AMI: AMI present?: No Quality - Stroke: CVA present?: No Quality - VTE: VTE present?: No Coding Level of Care Code Acute Careers Counsellor for Chg Fwd Diagnoses Shock R57.9 Pulmonary embolism I26.99 Lung mass R91.8 Acute respiratory failure with hypoxia J96.01 CHF exacerbation I50.9 COPD exacerbation J44.1 Pneumonia J18.9 Anemia D64.9 Carotid artery disease I77.9 Carotid artery disease type: unspecified Laterality: bilateral Essential hypertension I10 Hyperlipidemia E78.2 Hyperlipidemia type: mixed hyperlipidemia Lung nodule R91.1 Acute on chronic respiratory failure with hypoxia and hypercapnia J96.21; J96.22 New onset a-fib I48.91 NSTEMI (non-ST elevated myocardial infarction) I21.4
--- NOTE | 2021-12-11 09:49 | PC.NURSE ---
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
== END 2021-12-09 17:08 | disposition expired | DRG 175 ==
LOC: ER 12:05 → ICU 14:55
PROVIDERS: Internal Medicine; Admitting Provider Family Medicine; Emergency Provider Emergency Medicine; PCP Nurse Practitioner Family; Visit Provider Internal Medicine
DX: I26.99 Other pulmonary embolism without acute cor pulmonale (principal); J69.0 Pneumonitis due to inhalation of food and vomit; I50.43 Acute on chronic combined systolic (congestive) and diastolic (congestive) heart failure; J96.22 Acute and chronic respiratory failure with hypercapnia; J96.21 Acute and chronic respiratory failure with hypoxia; I21.4 Non-ST elevation (NSTEMI) myocardial infarction; R65.21 Severe sepsis with septic shock; A41.9 Sepsis, unspecified organism; C78.02 Secondary malignant neoplasm of left lung; J44.1 Chronic obstructive pulmonary disease with (acute) exacerbation; J44.0 Chronic obstructive pulmonary disease with (acute) lower respiratory infection; N63.10 Unspecified lump in the right breast, unspecified quadrant; I48.91 Unspecified atrial fibrillation; I11.0 Hypertensive heart disease with heart failure; F17.210 Nicotine dependence, cigarettes, uncomplicated; R29.6 Repeated falls; E78.2 Mixed hyperlipidemia; Z66 Do not resuscitate; I65.23 Occlusion and stenosis of bilateral carotid arteries; I35.0 Nonrheumatic aortic (valve) stenosis; D50.9 Iron deficiency anemia, unspecified; E87.5 Hyperkalemia; I95.9 Hypotension, unspecified; R57.0 Cardiogenic shock
CPT/HCPCS: 36415; 36600; 51702; 71045; 71275; 74022; 80051; 80053; 81003; 82330; 82728; 82803; 82805; 83036; 83540; 83550; 83605; 83690; 83735; 83880; 84100; 84145; 84443; 84484; 85014; 85018; 85025; 85045; 85378; 85730; 86140; 86403; 87040; 87070; 87205; 87449; 87631; 87635; 87801; 93005; 93306; 93970; 94640; 94660; 96374; 96375; 99285; C9113; J0456; J0692; J0743; J1170; J1644; J1940; J2405; J2920; J2930; J3490; J7050; J7626; Q9967